=== PATIENT | male | born 1940 | race Caucasian/White ===

== ENCOUNTER 2016-04-08 05:08 | Emergency (ER) | payer MEDICARE, BC ==
--- NOTE | 2016-04-08 05:14 | ED Physician Documentation ---
PD HPI DYSPNEA - Stated complaint Stated Complaint: SOA - Chief complaint Chief Complaint: Resp - History obtained from History obtained from: Patient - History of Present Illness Timing - onset: Last night Timing - onset during: Light activity (he was getting up to go to the bathroom often, with feeling of frequency and dysuria, and was feeling short of breath with it. He uses oxygen regularly and is typically not very active. He was also then feeling some pain in right shoulder/upper right chest the past few hours intermittently.) Timing - duration: Hours Timing - details: Gradual onset, Still present Inciting event(s): No: Out of meds, URI Similar symptoms before: Diagnosis (had UTI about 1 1/2 years ago with similar dysuria. Has dyspnea often due to chronic COPD, on home oxygen.) Recently seen: Not recently seen Review of Systems Constitutional: denies: Fever, Chills Nose: denies: Rhinorrhea / runny nose, Congestion Throat: denies: Sore throat Cardiac: reports: Chest pain / pressure (right upper chest/shoulder area.). denies: Palpitations Respiratory: reports: Dyspnea, Cough (mild chronic, nonproductive). denies: Wheezing GI: denies: Nausea, Vomiting, Diarrhea : reports: Dysuria (just tonight), Frequency Skin: denies: Rash, Lesions Musculoskeletal: denies: Extremity swelling Neurologic: reports: Generalized weakness Psychiatric: denies: Anxiety Endocrine: denies: Weight loss, Easy bruising / bleeding Immunocompromised: denies: Immunocompromised PD PAST MEDICAL HISTORY - Past Medical History Cardiovascular: Hypertension Respiratory: COPD, Other Endocrine/Autoimmune: None GI: GERD : Benign prostate hypertrophy, Other HEENT: Chronic vision loss Psych: None Musculoskeletal: None Derm: None - Past Surgical History Past Surgical History: Yes General: Other HEENT: Cataracts - Present Medications Home Medications: Ambulatory Orders Medication Instructions Recorded Confirmed Fexofenadine [Aylin] 180 mg PO DAILY 07/10/14 04/08/16 Fluticasone/Salmeterol [Advair 1 inh PO BID 07/10/14 04/08/16 500-50 Diskus] Hydrochlorothiazide 12.5 mg PO DAILY 07/10/14 04/08/16 Omeprazole 20 mg PO DAILY 07/10/14 04/08/16 Latanoprost 2.5 ml OP DAILY 10/05/14 04/08/16 Aspirin [Aspir-Low] 81 mg PO DAILY 04/08/16 04/08/16 Cephalexin [Keflex] 500 mg PO TID #20 capsule 04/08/16 Naproxen 375 mg PO BID #20 tablet 04/08/16 Tamsulosin [Flomax] 1 tab PO DAILY 04/08/16 04/08/16 Timolol 0.5% Ophth Drops [Timoptic 1 drops OPTH BID 04/08/16 04/08/16 0.5% Ophth Drops] Tramadol HCl 50 mg PO Q6H PRN #20 tablet 04/08/16 - Allergies Allergies/Adverse Reactions: Allergies Allergy/AdvReac Type Severity Reaction Status Date / Time No Known Drug Allergies Allergy Verified 04/08/16 05:12 - Social History Does the pt smoke?: No Smoking Status: Former smoker Does the pt drink ETOH?: No Does the pt have substance abuse?: No - Immunizations Immunizations are current?: Yes - POLST Patient has POLST: No PD ED PE NORMAL - Vitals Vital signs reviewed: Yes - General General: Alert and oriented X 3, No acute distress, Well developed/nourished - HEENT HEENT: EOMI, Ears normal, Moist mucous membranes, Pharynx benign - Neck Neck: Supple, no meningeal sign, No JVD - Cardiac Cardiac: RRR, No murmur - Respiratory Respiratory: No: Clear bilaterally (some scattered wheezing noted throughout. ) - Abdomen Abdomen: Soft, Non tender - Back Back: No CVA TTP - Derm Derm: Normal color, Warm and dry - Extremities Extremities: No tenderness to palpate, Normal ROM s pain, No edema, No calf tenderness / cord - Neuro Neuro: Alert and oriented X 3, No motor deficit, Normal speech Results - Vitals Vitals: Vital Signs - 24 hr 04/08/16 04/08/16 04/08/16 05:13 05:55 06:31 Temperature 36.7 C Heart Rate 95 91 95 Respiratory 20 23 18 Rate Blood Pressure 169/88 H 155/96 H O2 Saturation 95 97 Oxygen O2 Source Nasal cannula Oxygen Flow Rate 5 - EKG (time done) 05:43 Rate: Rate (enter#) (97) Rhythm: NSR (with frequent PACs.) [place]: Normal Intervals: Normal CA QRS: Normal Ischemia: Normal ST segments. No: ST elevation c/w ischemia, ST depression ( ddddddd) Other comments: No: Other comments - Labs Labs: Laboratory Tests 04/08/16 04/08/16 04/08/16 06:09 06:09 06:09 WBC 12.6 H RBC 4.96 Hgb 15.0 Hct 44.2 MCV 89.1 MCH 30.3 MCHC 34.0 RDW 14.8 Plt Count 190 MPV 7.9 Neut # 10.5 H Lymph # 0.8 L [place] # 1.3 H Eos # 0.0 Baso # 0.1 Absolute Nucleated RBC 0.04 Nucleated RBCs 0.3 Sodium 139 Potassium 3.8 Chloride 102 Carbon Dioxide 26 Anion Gap 11.0 BUN 15 Creatinine 0.8 Estimated GFR (MDRD) 94 Glucose 148 H Calcium 8.8 Total Bilirubin 1.4 H AST 17 ALT 18 Alkaline Phosphatase 71 Troponin I < 0.04 B-Natriuretic Peptide Total Protein 6.9 Albumin 4.3 Globulin 2.6 Albumin/Globulin Ratio 1.7 Lipase 25 Urine Color Urine Clarity Urine pH Ur Specific [place] Urine Protein Urine Glucose (UA) Urine Ketones Urine Occult Blood Urine Nitrite Urine Bilirubin Urine Urobilinogen Ur Leukocyte Esterase Urine RBC Urine WBC Ur Squamous Epith Cells Urine Bacteria Ur Microscopic Review Urine Culture Comments 04/08/16 04/08/16 06:09 07:00 WBC RBC Hgb Hct MCV MCH MCHC RDW Plt Count MPV Neut # Lymph # [place] # Eos # Baso # Absolute Nucleated RBC Nucleated RBCs Sodium Potassium Chloride Carbon Dioxide Anion Gap BUN Creatinine Estimated GFR (MDRD) Glucose Calcium Total Bilirubin AST ALT Alkaline Phosphatase Troponin I B-Natriuretic Peptide 33 Total Protein Albumin Globulin Albumin/Globulin Ratio Lipase Urine Color DARK YELLOW Urine Clarity CLEAR Urine pH 7.0 Ur Specific [place] 1.015 Urine Protein TRACE Urine Glucose (UA) NEGATIVE Urine Ketones 15 H Urine Occult Blood NEGATIVE Urine Nitrite NEGATIVE Urine Bilirubin NEGATIVE Urine Urobilinogen >=8.0 H Ur Leukocyte Esterase SMALL H Urine RBC 6-10 H Urine WBC 6-10 H Ur Squamous Epith Cells NONE SEEN Urine Bacteria None Seen Ur Microscopic Review INDICATED Urine Culture Comments INDICATED - Rads (name of study) chest Radiology: Prelim report reviewed (some chronic scarring. No focal infiltrates. ) PD MEDICAL DECISION MAKING - ED course Complexity details: considered differential (feels better with neb treatment regarding breathing. Right shoulder with some tenderness mid calvicl area. Some pain with abduction/lifting the shoulder. No rash, deformity.), d/w patient, d/ w family () Departure - Departure Disposition: 01 Home, Self Care Clinical Impression: Shoulder pain, right Qualifiers: Chronicity: acute Qualified Code(s): M25.511 - Pain in right shoulder Urinary tract infection Qualifiers: Urinary tract infection type: acute cystitis Hematuria presence: with hematuria Qualified Code(s): N30.01 - Acute cystitis with hematuria Chest pain Qualifiers: Chest pain type: other chest pain Qualified Code(s): R07.89 - Other chest pain ; R07.8 - Other chest pain Condition: Stable Record reviewed to determine appropriate education?: Yes Instructions: ED UTI Cystitis Male, ED Chest Pain NonCardiac Follow-Up: Silas Sheets MD [Primary Care Provider] - Prescriptions: Cephalexin [Keflex] 500 mg PO TID #20 capsule Naproxen 375 mg PO BID #20 tablet Tramadol HCl 50 mg PO Q6H PRN #20 tablet PRN Reason: Pain Comments: Naproxen twice daily for 5-6 days for the chest/shoulder pain. Add Tylenol and/ or Tramadol for pain as needed. Cephalexin three times daily for UTI. Follow up with PMD if not improved over the next few days.
[2016-04-08] MEDS ORDERED: ALBUTEROL NEB 2.5 MG/3 ML INH ONE (05:51)
[2016-04-08] MEDS: ALBUTEROL NEB 2.5 MG/3 ML INH STA (05:55)
[2016-04-08 06:23] LABS: BASOPHILS # (AUTO) 0.1 10^3/uL (0.0-0.1); BASOPHILS % (AUTO) 0.4 %; EOSINOPHILS % (AUTO) 0.2 %; HCT - HEMATOCRIT 44.2 % (42.0-52.0); LYMPHOCYTES # (AUTO) 0.8 10^3/uL (1.5-3.5); MEAN CORPUSCULAR HEMOGLOBIN 30.3 pg (27.0-31.0); MEAN CORPUSCULAR VOLUME 89.1 fL (80.0-94.0); MEAN PLATELET VOLUME 7.9 fL (7.4-11.4); MONOCYTES # (AUTO) 1.3 10^3/uL (0.0-1.0); MONOCYTES % (AUTO) 10.3 %; NEUTROPHILS # (AUTO) 10.5 10^3/uL (1.5-6.6); NEUTROPHILS % (AUTO) 83.1 %; NUCLEATED RED BLOOD CELLS AUTO 0.3 /100WBC; RED BLOOD COUNT 4.96 10^6/uL (4.70-6.10); RED CELL DISTRIBUTION WIDTH 14.8 % (12.0-15.0); UNCORRECTED WHITE BLOOD COUNT 12.6 x10^3/uL; WHITE BLOOD COUNT 12.6 x10^3/uL (4.8-10.8)
[2016-04-08 06:33] LABS: ALBUMIN/GLOBULIN RATIO 1.7 (1.0-2.2); BILIRUBIN,TOTAL 1.4 mg/dL (0.2-1.0); CALCIUM 8.8 mg/dL (8.5-10.3); CREATININE 0.8 mg/dL (0.6-1.2); POTASSIUM 3.8 mmol/L (3.5-5.0); TOTAL PROTEIN 6.9 g/dL (6.7-8.2)
--- NOTE | 2016-04-08 06:49 | XRAY Preliminary Report ---
Exam: XR Chest 2 View PA/LAT IMPRESSION: 1. Mild cardiomegaly and chronic interstitial prominence. 2. Mild bibasilar atelectasis or infiltrate. 3. Hiatal hernia. [facility] SITE ID: [id number]
--- NOTE | 2016-04-08 06:51 | XRAY Report ---
EXAM: CHEST RADIOGRAPHY EXAM DATE: 04/08/2016 06:34 AM. CLINICAL HISTORY: Right chest pain; cough. Low oxygen saturation. Shortness of breath. COMPARISON: 07/10/2014. TECHNIQUE: 2 views. FINDINGS: Lungs/Pleura: Chronic interstitial prominence. Mild bibasilar atelectasis or infiltrate. No pleural e ffusion. No pneumothorax. Mediastinum: Mild cardiomegaly. Tortuous ectatic atherosclerotic aorta. Moderate to large hiatal john ia. Other: None. IMPRESSION: 1. Mild cardiomegaly and chronic interstitial prominence. 2. Mild bibasilar atelectasis or infiltrate. 3. Hiatal hernia. [facility] Referring Provider Line: [phone] SITE ID: [id number]
[2016-04-08 07:18] LABS: BILIRUBIN,URINE NEGATIVE (NEGATIVE); UA w/ MICROSCOPIC CHARGE YES
[2016-04-08 07:24] LABS: UR CULTURE IF IND INDICATED
[2016-04-08] MEDS ORDERED: CEPHALEXIN 250 MG CAPSULE PO ONE (07:38)
[2016-04-08] MEDS ORDERED: ACETAMINOPHEN 325 MG TABLET PO ONE (07:38)
[2016-04-08] MEDS ORDERED: traMADol 50 MG TABLET PO ONE (07:38)
[2016-04-08] MEDS: ACETAMINOPHEN 325 MG TABLET PO STA (07:41)
[2016-04-08] MEDS: traMADol 50 MG TABLET PO STA (07:41)
[2016-04-08] MEDS: CEPHALEXIN 250 MG CAPSULE PO STA (07:41)
[2016-04-08 07:54] VITALS: BP 157/83
== END 2016-04-08 07:54 | disposition home or self-care (01) ==
LOC: ED 05:08
DX: N30.01 Acute cystitis with hematuria (principal); M25.511 Pain in right shoulder; R07.89 Other chest pain; I10 Essential (primary) hypertension; K44.9 Diaphragmatic hernia without obstruction or gangrene; K21.9 Gastro-esophageal reflux disease without esophagitis; J44.9 Chronic obstructive pulmonary disease, unspecified; N40.0 Benign prostatic hyperplasia without lower urinary tract symptoms; Z79.82 Long term (current) use of aspirin; Z87.891 Personal history of nicotine dependence; Z99.81 Dependence on supplemental oxygen
CPT/HCPCS: 36415; 71020; 80053; 81001; 81003; 83690; 83880; 84484; 85025; 87086; 93005; 93010; 94640; 99283; 99284

== ENCOUNTER 2016-12-01 13:17 | Emergency (ER) | payer MEDICARE, BC ==
[2016-12-01 13:29] VITALS: BP 155/89
[2016-12-01] MEDS ORDERED: LIDOCAINE 2%-EPI 1:100000 20 ML MDV ONE (14:05)
[2016-12-01] MEDS ORDERED: TETANUS/DIPHTHERIA/PERTUSSIS 0.5 ML SYRINGE IM ONE ×2 (14:27→14:39)
--- NOTE | 2016-12-01 14:52 | ED Physician Documentation ---
PD HPI LOWER EXT INJURY - Stated complaint Stated Complaint: HEAD LAC - Chief complaint Chief Complaint: Laceration - History obtained from History obtained from: Patient - History of Present Illness PD HPI LOW EXT INJURY LOCATION: Other (occipital scalp) Type of injury: Fall Where injury occurred: Home Timing - onset: Today (Just prior to arrival.) Contributing factors: No: Anticoagulated Similar symptoms before: Has not had sx before - Additional information Additional information: The patient is a 75-year-old male who fell when he stumbled on the bottom step of the stairs just prior to arrival. He fell backwards impacting his head on the concrete. He denies loss of consciousness. He denies nausea or vomiting. He has been ambulatory since the incident occurred. He is uncertain of his last tetanus booster. Past medical history is significant for oxygen dependent COPD. Review of Systems Constitutional: denies: Fever Eyes: denies: Decreased vision Ears: denies: Tinnitus/ringing Nose: denies: Congestion Throat: denies: Sore throat Cardiac: denies: Chest pain / pressure Respiratory: denies: Dyspnea GI: denies: Abdominal Pain, Nausea, Vomiting : denies: Dysuria, Incontinent Skin: reports: Laceration (s) (scalp). denies: Rash Musculoskeletal: denies: Neck pain, Extremity pain Neurologic: reports: Head injury. denies: Focal weakness, Numbness, Altered mental status, Headache, LOC PD PAST MEDICAL HISTORY - Past Medical History Past Medical History: Yes Cardiovascular: Hypertension Respiratory: COPD, Other Neuro: Alzhiemer's Endocrine/Autoimmune: None GI: GERD : Benign prostate hypertrophy, Other HEENT: Chronic vision loss Psych: None Musculoskeletal: None Derm: None - Past Surgical History Past Surgical History: Yes General: Other HEENT: Cataracts - Present Medications Home Medications: Ambulatory Orders Medication Instructions Recorded Confirmed Aspirin [Adult Low Dose Aspirin EC] 1 tab PO DAILY 12/01/16 12/01/16 Cyanocobalamin (Vitamin B-12) 1 tab PO DAILY 12/01/16 12/01/16 [Vitamin B-12 (1000 mcg sublingual)] Fexofenadine HCl 1 tab PO DAILY 12/01/16 12/01/16 Finasteride 1 tab PO DAILY 12/01/16 12/01/16 Fluticasone/Salmeterol [Advair 1 tab PO DAILY 12/01/16 12/01/16 500-50 Diskus] Omeprazole [Omeprazole] 1 tab PO BID 12/01/16 12/01/16 Tamsulosin HCl [Flomax] 1 tab PO TID 12/01/16 12/01/16 Tiotropium [place] [Spiriva] 1 cap PO DAILY 12/01/16 12/01/16 hydroCHLOROthiazide [Hydrodiuril] 0.5 tab PO DAILY 12/01/16 12/01/16 - Allergies Allergies/Adverse Reactions: Allergies Allergy/AdvReac Type Severity Reaction Status Date / Time No Known Drug Allergies Allergy Verified 12/01/16 14:16 - Social History Does the pt smoke?: No Smoking Status: Former smoker Does the pt drink ETOH?: No Does the pt have substance abuse?: No - Immunizations Immunizations are current?: Yes - POLST Patient has POLST: No PD ED PE NORMAL - Vitals Vital signs reviewed: Yes (Hypertensive initially) - General General: Alert and oriented X 3, Well developed/nourished - HEENT HEENT: EOMI, Other (There is a 1.5 cm occipital scalp laceration. There is no bony step-off palpated.) - Neck Neck: Supple, no meningeal sign, No bony TTP - Cardiac Cardiac: RRR - Respiratory Respiratory: Clear bilaterally, Other (Supplemental oxygen by nasal cannula. Lungs clear to auscultation bilaterally.) - Abdomen Abdomen: Soft, Non tender - Back Back: No spinal TTP - Derm Derm: No rash - Extremities Extremities: No deformity, No tenderness to palpate - Neuro Neuro: Alert and oriented X 3, No motor deficit, No sensory deficit Results - Vitals Vitals: Oxygen O2 Source Nasal cannula Procedures - Laceration (location) Scalp Length in cm: 1.5 Wound type: Linear, Clean Neurovascular status: Sensory intact, Vascular intact Anesthesia: Lidocaine 1% with epi Wound Preparation: Hibiclens, Irrigated copiously NS, Wound explored, To the base. No: FB identified Skin layer closure: Bernard[place] Other: Patient tolerated well, No complications, Tetanus booster given Complexity: Simple PD MEDICAL DECISION MAKING - ED course Complexity details: considered differential, d/w patient, d/w family ED course: The patient's presentation is significant for small occipital scalp laceration caused by falling. No other injuries are found on thorough examination. Based on his clinical presentation I do not think imaging studies of his head is necessarily warranted. The patient is family expresses agreement that head CT is not clinically necessary. Treatment in the emergency department included thorough cleaning of the wound after local anesthetic was instilled. It was then repaired with bernarda. Antibiotic ointment was applied, and tetanus booster was administered. I discussed with him and his family the expected course of healing, wound care and timing for removal of bernarda, as well as potentially worrisome signs or symptoms that should prompt reevaluation is needed emergency department. Departure - Departure Disposition: 01 Home, Self Care Clinical Impression: Fall (on) (from) other stairs and steps, initial encounter Scalp laceration Qualifiers: Encounter type: initial encounter Qualified Code(s): S01.01XA - Laceration without foreign body of scalp, initial encounter Condition: Stable Instructions: ED Head Injury Closed, ED Laceration Scalp Stitch Or Stap Follow-Up: Silas Sheets MD [Primary Care Provider] - Comments: Keep the wound clean, and apply antibiotic ointment daily. You can use Tylenol if needed for discomfort. Follow-up for removal of bernarda in about 12 days. Return to the emergency department sooner if you develop any sign of infection, increasing headache, persistent vomiting, or otherwise worsening symptoms. Discharge Date/Time: 12/01/16 15:04
== END 2016-12-01 15:04 | disposition home or self-care (01) ==
LOC: ED 13:17
DX: S01.01XA Laceration without foreign body of scalp, initial encounter (principal); W10.9XXA Fall (on) (from) unspecified stairs and steps, initial encounter; G30.9 Alzheimer's disease, unspecified; F02.80 Dementia in other diseases classified elsewhere, unspecified severity, without behavioral disturbance, psychotic disturbance, mood disturbance, and anxiety; I10 Essential (primary) hypertension; Z87.891 Personal history of nicotine dependence; Z23 Encounter for immunization
CPT/HCPCS: 12001; 90471; 99282; 99283

== ENCOUNTER 2018-06-21 17:58 | Inpatient (IN) | payer MEDICARE, BC ==
--- NOTE | 2018-06-21 19:16 | ED Physician Documentation ---
PD HPI DYSPNEA - Stated complaint Stated Complaint: SOA/Weakness - Chief complaint Chief Complaint: Resp - History obtained from History obtained from: Patient, Family - History of Present Illness Timing - onset: How many days ago (2) Timing - onset during: Light activity Timing - duration: Days (The and daughter state the patient has had onset and progression of dyspnea since yesterday associated with general weakness. He has not really had any increased cough over baseline and his states may be a little less cough than usual. Today he also had altered mentation confusion and increased weakness to the point of falling on unable to walk. There were family members stated that symmetric weakness without any laterality. They had been out in the garden because it was a nice day and came in and the patient told them he had fallen and they also noticed she was generally weaker and seemed very confused. This worsened over the next couple of hours and so they brought him in.) Timing - details: Abrupt onset, Still present Inciting event(s): No: URI (No apparent increased cough over baseline but he does have lung disease with ongoing hypoxemia requiring oxygen at 3 L during the day and 5 L at night. He has had subjective dyspnea and also general weakness the last couple of days worsening steadily.) Improved by: O2 Associated symptoms: Cough (chronic). No: Fever, Wheezing, Bilateral edema Recently seen: Not recently seen Review of Systems Constitutional: denies: Fever Cardiac: denies: Chest pain / pressure Respiratory: reports: Dyspnea, Cough. denies: Wheezing GI: denies: Abdominal Pain, Vomiting, Diarrhea : denies: Dysuria, Incontinent Neurologic: reports: Generalized weakness, Head injury (he had fallen today without being able to state how he fell nor injuries. Was acting more confused and weak after the fall.). denies: Headache Endocrine: reports: Easy bruising / bleeding. denies: Weight loss PD PAST MEDICAL HISTORY - Past Medical History Cardiovascular: Hypertension Respiratory: COPD, Other Neuro: Alzhiemer's, Dementia Endocrine/Autoimmune: None GI: GERD : Benign prostate hypertrophy, Other HEENT: Chronic vision loss Psych: None Musculoskeletal: None Derm: None - Past Surgical History Past Surgical History: Yes General: Other HEENT: Cataracts - Present Medications Home Medications: Ambulatory Orders Medication Instructions Recorded Confirmed Aspirin [Adult Low Dose Aspirin EC] 1 tab PO DAILY 12/01/16 06/21/18 Fexofenadine HCl 1 tab PO DAILY 12/01/16 06/21/18 Finasteride 1 tab PO DAILY 12/01/16 06/21/18 Fluticasone/Salmeterol [Advair 1 tab PO DAILY 12/01/16 06/21/18 500-50 Diskus] Omeprazole 1 tab PO BID 12/01/16 06/21/18 Tamsulosin HCl [Flomax] 1 tab PO DAILY 12/01/16 06/21/18 Tiotropium [place] [Spiriva] 1 cap PO DAILY 12/01/16 06/21/18 hydroCHLOROthiazide [Hydrodiuril] 12.5 mg PO DAILY 12/01/16 06/21/18 - Allergies Allergies/Adverse Reactions: Allergies Allergy/AdvReac Type Severity Reaction Status Date / Time No Known Drug Allergies Allergy Verified 06/21/18 21:42 - Social History Does the pt smoke?: No Smoking Status: Former smoker Does the pt drink ETOH?: No Does the pt have substance abuse?: No - Family History Family history: reports: Non contributory - Immunizations Immunizations are current?: Yes - POLST Patient has POLST: No PD ED PE NORMAL - Vitals Vital signs reviewed: Yes - General General: No acute distress, Well developed/nourished. No: Alert and oriented X 3 (answers to his name and can reply to simple questions. very hard of hearing. Seems to be agitated and is picking at his clothing and fidgeting at the bed rails. ) - HEENT HEENT: Atraumatic, Pharynx benign. No: Moist mucous membranes - Neck Neck: Supple, no meningeal sign, No adenopathy - Cardiac Cardiac: RRR, No murmur - Respiratory Respiratory: Other (diminished sounds at bases. No wheezing noted. ) - Abdomen Abdomen: Normal bowel sounds, Soft, Non tender, Non distended - Male Male : Deferred - Rectal Rectal: Deferred - Back Back: No CVA TTP - Derm Derm: Normal color - Extremities Extremities: No deformity, No tenderness to palpate, Normal ROM s pain, No edema, No calf tenderness / cord - Neuro Neuro: No motor deficit (not focally, but has generalized weakness and needs 2 person assist to stand bedside to urinate. ) Eye Opening: To Voice Motor: Obeys Commands Verbal: Confused GCS Score: 13 Results - Vitals Vitals: Vital Signs - 24 hr 06/21/18 06/21/18 06/21/18 18:06 19:21 19:39 Temperature 36.1 C L Heart Rate 99 109 H Respiratory 26 H Rate Blood Pressure 139/97 H 130/86 H O2 Saturation 95 93 06/21/18 06/21/18 20:08 21:27 Temperature 36.8 C Heart Rate 90 89 Respiratory 18 19 Rate Blood Pressure 127/80 125/79 O2 Saturation 93 93 Oxygen O2 Source Nasal cannula - Labs Labs: Laboratory Tests 06/21/18 06/21/18 06/21/18 19:10 19:10 19:10 WBC 17.4 H RBC 5.01 Hgb 15.3 Hct 44.7 MCV 89.1 MCH 30.5 MCHC 34.2 RDW 15.1 H Plt Count 213 MPV 7.8 Neut # (Auto) 15.1 H Lymph # (Auto) 1.1 L [place] # (Auto) 1.1 H Eos # (Auto) 0.0 Baso # (Auto) 0.1 Absolute Nucleated RBC 0.00 Nucleated RBC % 0.0 Sodium 137 Potassium 3.6 Chloride 98 L Carbon Dioxide 27 Anion Gap 12.0 BUN 20 Creatinine 0.9 Estimated GFR (MDRD) 82 L Glucose 159 H Lactic Acid Calcium 9.7 Magnesium Total Bilirubin 1.2 H AST 22 ALT 13 Alkaline Phosphatase 72 B-Natriuretic Peptide 66 Total Protein 7.4 Albumin 4.0 Globulin 3.4 Albumin/Globulin Ratio 1.2 Lipase 25 Urine Color Urine Clarity Urine pH Ur Specific [place] Urine Protein Urine Glucose (UA) Urine Ketones Urine Occult Blood Urine Nitrite Urine Bilirubin Urine Urobilinogen Ur Leukocyte Esterase Ur Microscopic Review Urine Culture Comments 06/21/18 06/21/18 06/21/18 19:10 19:10 19:20 WBC RBC Hgb Hct MCV MCH MCHC RDW Plt Count MPV Neut # (Auto) Lymph # (Auto) [place] # (Auto) Eos # (Auto) Baso # (Auto) Absolute Nucleated RBC Nucleated RBC % Sodium Potassium Chloride Carbon Dioxide Anion Gap BUN Creatinine Estimated GFR (MDRD) Glucose Lactic Acid 2.1 Calcium Magnesium 1.7 Total Bilirubin AST ALT Alkaline Phosphatase B-Natriuretic Peptide Total Protein Albumin Globulin Albumin/Globulin Ratio Lipase Urine Color DARK YELLOW Urine Clarity CLEAR Urine pH 5.0 Ur Specific [place] >=1.030 H Urine Protein NEGATIVE Urine Glucose (UA) NEGATIVE Urine Ketones NEGATIVE Urine Occult Blood NEGATIVE Urine Nitrite NEGATIVE Urine Bilirubin NEGATIVE Urine Urobilinogen 0.2 (NORMAL) Ur Leukocyte Esterase NEGATIVE Ur Microscopic Review NOT INDICATED Urine Culture Comments NOT INDICATED - Rads (name of study) head CT Radiology: Prelim report reviewed (age related changes; no acute process), See rad report chest xray Radiology: Prelim report reviewed (There is a small nodule on the left that is similar to prior. There is a new atelectasis or infiltrate in the left midlung field.) PD MEDICAL DECISION MAKING - ED course Complexity details: reviewed results, considered differential (The patient has a fairly abrupt progression of generalized weakness confusion and apparent dyspnea over the last couple of days. He was weaker and off today the family members were unable to get him up to standing or to the bathroom. He reportedly fell earlier in the day while they were outside gardening. There is no obvious headache or head injury but he did seem more confused and weak after that. He has a chronic cough and COPD. He does have a leukocytosis here and chest x-ray reading with a small infiltrate on the left. Other labs urine and CT head are normal without acute changes. Therefore seems he is having cognitive and weakness manifestations of the pneumonia. His lactate is negative and his blood vital signs are good so he does not look septic.), d/w patient, d/w family Departure - Departure Disposition: 66 [facility] DC/Xfer Clinical Impression: General weakness, Altered mental status, Pneumonia, Leukocytosis
[2018-06-21 19:34] LABS: BASOPHILS # (AUTO) 0.1 10^3/uL (0.0-0.1); BASOPHILS % (AUTO) 0.4 %; EOSINOPHILS % (AUTO) 0.2 %; HGB - HEMOGLOBIN 15.3 g/dL (14.0-18.0); LYMPHOCYTES # (AUTO) 1.1 10^3/uL (1.5-3.5); LYMPHOCYTES % (AUTO) 6.2 %; MEAN CORPUSCULAR HEMOGLOBIN 30.5 pg (27.0-31.0); MEAN CORPUSCULAR HGB CONC 34.2 g/dL (32.0-36.0); MEAN CORPUSCULAR VOLUME 89.1 fL (80.0-94.0); MEAN PLATELET VOLUME 7.8 fL (7.4-11.4); MONOCYTES # (AUTO) 1.1 10^3/uL (0.0-1.0); MONOCYTES % (AUTO) 6.5 %; NEUTROPHILS # (AUTO) 15.1 10^3/uL (1.5-6.6); NEUTROPHILS % (AUTO) 86.7 %; PLT - PLATELET COUNT 213 10^3/uL (130-450); RED BLOOD COUNT 5.01 10^6/uL (4.70-6.10); RED CELL DISTRIBUTION WIDTH 15.1 % (12.0-15.0); WHITE BLOOD COUNT 17.4 x10^3/uL (4.8-10.8)
[2018-06-21] MEDS ORDERED: SODIUM CHLORIDE 0.9% 1,000 ML IV ONE (19:34)
[2018-06-21 19:42] LABS: BILIRUBIN,URINE NEGATIVE (NEGATIVE); GLUCOSE, URINE (UA) NEGATIVE (NEGATIVE); KETONES,URINE (UA) NEGATIVE (NEGATIVE); LEUKOCYTE ESTERASE, URINE NEGATIVE (NEGATIVE); NITRITE,URINE NEGATIVE (NEGATIVE); OCCULT BLOOD,URINE NEGATIVE (NEGATIVE); PROTEIN,URINE NEGATIVE (NEGATIVE); UROBILINOGEN,URINE 0.2 (NORMAL) E.U./dL (NORMAL)
[2018-06-21 19:45] LABS: CLARITY,URINE CLEAR (CLEAR)
[2018-06-21 19:57] LABS: ALBUMIN/GLOBULIN RATIO 1.2 (1.0-2.2); BILIRUBIN,TOTAL 1.2 mg/dL (0.2-1.0); CALCIUM 9.7 mg/dL (8.5-10.3); CREATININE 0.9 mg/dL (0.6-1.2); TOTAL PROTEIN 7.4 g/dL (6.7-8.2)
--- NOTE | 2018-06-21 20:09 | CT Report ---
Reason: weakness, altered mentation today Procedure Date: 06/21/2018 Accession Number: [id number] / [id number] Procedure: CT - HEAD WO CPT Code: FULL RESULT: EXAM: CT HEAD EXAM DATE: 06/21/2018 07:57 PM. CLINICAL HISTORY: Weakness, altered mentation today. COMPARISON: BRAIN W/WO 05/03/2015 8:11 AM. TECHNIQUE: Multiaxial CT images were obtained from the foramen magnum to the vertex. Reformats: Sagittal and coronal. IV contrast: None. In accordance with CT protocol optimization, one or more of the following dose reduction techniques were utilized for this exam: automated exposure control, adjustment of mA and/or KV based on patient size, or use of iterative reconstructive technique. FINDINGS: Parenchyma: No intraparenchymal hemorrhage. No evidence of mass, midline shift, or CT findings of acute infarction. Szymanski-white differentiation is distinct. Severe diffuse chronic microangiopathic white matter changes. Extraaxial Spaces: Normal for age. No subdural or epidural collections. Ventricles: The ventricles and cortical sulci are enlarged, consistent with age-related tissue loss. Sinuses and orbits: Imaged paranasal sinuses, orbits, and mastoids show no significant abnormality. Bones: Unremarkable. Other: None. IMPRESSION: Generalized age-related cortical atrophic changes without evidence of acute intracranial abnormality. [facility]
--- NOTE | 2018-06-21 20:18 | XRAY Report ---
Reason: dyspnea today Procedure Date: 06/21/2018 Accession Number: [id number] / [id number] Procedure: XR - Chest 1 View X-Ray CPT Code: 96737 FULL RESULT: EXAM: CHEST RADIOGRAPHY EXAM DATE: 06/21/2018 08:03 PM. CLINICAL HISTORY: Dyspnea today. COMPARISON: CHEST 2 VIEW PA/LAT 04/08/2016 6:14 AM. TECHNIQUE: 1 view. FINDINGS: Lungs/Pleura: The right lung appears clear. There is a vague nodular density and patchy density in the left midlung. Mediastinum: There is a retrocardiac rounded opacity suggestive of a hiatal hernia. There is moderate tortuosity of the aorta. Other: None. IMPRESSION: 1. Vague nodularity left midlung which is new since 2017. Possible patchy infection, atelectasis or asymmetric edema. 2. Probable hiatal hernia. RADIA
[2018-06-21] MEDS ORDERED: cefTRIAXone 1 GM VIAL IVP STA (20:22)
[2018-06-21] MEDS ORDERED: AZITHROMYCIN INJ 500 MG in SODIUM CHLORIDE 0.9% 250 ML IV STA (20:22)
[2018-06-21] MEDS ORDERED: SODIUM CHLORIDE FLUSH 0.9% 10 ML SYRINGE IVP PRN (21:43)
[2018-06-21] MEDS ORDERED: ACETAMINOPHEN 325 MG TABLET PO PRN (21:43)
--- NOTE | 2018-06-21 23:31 | HISTORY & PHYSICAL EXAMINATION ---
Chief Complaint - Chief Complaint Chief Complaint: encephalopathy, weakness History of Present Illness - Admitted From Admitted From:: [facility] ED - History Obtained From Records Reviewed: yes History obtained from: family Exam Limitations: encephalopathy, alzheimer's hard or hearing - History of Present Illness HPI Comment/Other: Patient is a 77 y/o male with Hx of Alzheimer's who was brought into the ED by family because he was suddenly very weak today, unable to stand on his own or walk. He was also more confused. Normally he recognizes family and can carry out a conversation just fine. He is also able to feed himself at baseline, though his coordination is declining. He is on 3-5L of Oxygen via nasal canula at home. In the ED he was found to have a WBC of 17 and chest xray suggested infiltrates. As a result he is being admitted for further treatment. At the time of my exam he was resting comfortably. He has a chronic cough, productive of white-aye sputum. This history was provided entirely by family. He is not very communicative. History - Past Medical History Cardiovascular: reports: Hypertension Respiratory: reports: COPD, Other Neuro: reports: Alzhiemer's, Dementia Endocrine/Autoimmune: reports: None GI: reports: GERD : reports: Benign prostate hypertrophy, Other HEENT: reports: Chronic vision loss Psych: reports: None Musculoskeletal: reports: None Derm: reports: None MRSA Hx?: No - Past Surgical History General: reports: Other HEENT: reports: Cataracts - POLST Patient has POLST: No Meds/Allgy - Home Medications Home Medications: Ambulatory Orders Medication Instructions Recorded Confirmed Aspirin [Adult Low Dose Aspirin EC] 1 tab PO DAILY 12/01/16 06/21/18 Fexofenadine HCl 1 tab PO DAILY 12/01/16 06/21/18 Finasteride 1 tab PO DAILY 12/01/16 06/21/18 Fluticasone/Salmeterol [Advair 1 tab PO DAILY 12/01/16 06/21/18 500-50 Diskus] Omeprazole 1 tab PO BID 12/01/16 06/21/18 Tamsulosin HCl [Flomax] 1 tab PO DAILY 12/01/16 06/21/18 Tiotropium [place] [Spiriva] 1 cap PO DAILY 12/01/16 06/21/18 hydroCHLOROthiazide [Hydrodiuril] 12.5 mg PO DAILY 12/01/16 06/21/18 - Allergies Allergies/Adverse Reactions: Allergies Allergy/AdvReac Type Severity Reaction Status Date / Time No Known Drug Allergies Allergy Verified 06/21/18 21:42 Review of Systems - Other Findings Other Findings: Limited due to alzheimer's and encephalopathy. Prior Level of Functionality: Lives with family Is able to feed self though coordination is declining Gets around walking on his own though he is unsteady on his feet. At baseline, recognizes family and can carry out conversation. Exam - Vital Signs Vital Signs: Vital Signs x48h Temp Pulse Resp BP Pulse Ox 06/21/18 21:27 89 19 125/79 93 06/21/18 20:08 36.8 C 90 18 127/80 93 06/21/18 19:39 130/86 H 06/21/18 19:21 109 H 93 06/21/18 18:06 36.1 C L 99 26 H 139/97 H 95 - Physical Exam General Appearance: positive: No acute distress, Alert Eyes Bilateral: positive: Normal inspection, PERRL, EOMI ENT: positive: ENT inspection nml Neck: positive: Nml inspection, No JVD, Trachea midline Respiratory: positive: Chest non-tender, No respiratory distress, Other (decreased breath sounds) Cardiovascular: positive: Regular rate & rhythm, No murmur Abdomen: positive: Non-tender, Nml bowel sounds, No distention Back: positive: Nml inspection Skin: positive: No rash, Other (thin skin, bruising) Extremities: positive: Non-tender, Nml appearance, No pedal edema Neurologic/Psychiatric: positive: Disoriented to place, Disoriented to time Sepsis Event Note (H) - Evaluation Current Stage of Sepsis: Sepsis Possible source of Sepsis: positive: Pulmonary - Sepsis Criteria Sepsis Criteria: Recorded Heart Rate greater than 90 bpm, WBC count greater than 12,000 or less than 4000 Conclusion/Plan - Problem List (1) Pneumonia Conclusion/Plan: Patient started on rocephin and azithromycin Will continue Qualifiers: Pneumonia type: due to unspecified organism Laterality: left Lung location: upper lobe of lung Qualified Code(s): J18.1 - Lobar pneumonia, unspecified organism (2) Altered mental status Conclusion/Plan: Likely 2/2 Pneumonia and Alzheimer's Expect patient to return to baseline with treatment Qualifiers: Altered mental status type: delirium Qualified Code(s): R41.0 - Disorientation, unspecified (3) COPD (chronic obstructive pulmonary disease) Conclusion/Plan: Not in exacerbation At baseline Duoneb prn ordered (4) Alzheimer disease Conclusion/Plan: On seroquel at night for behavioral disturbances (5) Glaucoma Conclusion/Plan: Will resume home medication when verified (6) GERD (gastroesophageal reflux disease) Conclusion/Plan: Protonix ordered - Lab Results Fish Bones: 06/22/18 05:53 06/21/18 19:10 Core Measures - Anticipated LOS I expect patient to be DC'd or transferred within 96 hours.: Yes - DVT/VTE - Prophylaxis VTE/DVT Device ordered at admit?: Yes - AMI - Statin at Admit Aspirin Prescribed on Admit: Yes
[2018-06-21] MEDS: QUEtiapine 25 MG TABLET PO SCH (23:54)
[2018-06-21] MEDS: SODIUM CHLORIDE 0.9% 1,000 ML IV SCH (23:54)
[2018-06-21] MEDS: SODIUM CHLORIDE FLUSH 0.9% 10 ML SYRINGE IVP SCH (23:55)
[2018-06-22 06:24] LABS: BASOPHILS # (AUTO) 0.1 10^3/uL (0.0-0.1); BASOPHILS % (AUTO) 0.7 %; EOSINOPHILS # (AUTO) 0.1 10^3/uL (0.0-0.7); EOSINOPHILS % (AUTO) 0.6 %; HGB - HEMOGLOBIN 13.2 g/dL (14.0-18.0); LYMPHOCYTES # (AUTO) 1.4 10^3/uL (1.5-3.5); MEAN CORPUSCULAR HEMOGLOBIN 30.2 pg (27.0-31.0); MEAN CORPUSCULAR HGB CONC 33.6 g/dL (32.0-36.0); MEAN CORPUSCULAR VOLUME 89.9 fL (80.0-94.0); MEAN PLATELET VOLUME 7.4 fL (7.4-11.4); MONOCYTES # (AUTO) 0.9 10^3/uL (0.0-1.0); MONOCYTES % (AUTO) 6.8 %; NEUTROPHILS # (AUTO) 11.4 10^3/uL (1.5-6.6); NEUTROPHILS % (AUTO) 81.9 %; PLT - PLATELET COUNT 182 10^3/uL (130-450); RED BLOOD COUNT 4.37 10^6/uL (4.70-6.10); RED CELL DISTRIBUTION WIDTH 14.7 % (12.0-15.0); WHITE BLOOD COUNT 13.9 x10^3/uL (4.8-10.8)
[2018-06-22 06:32] LABS: CALCIUM 8.5 mg/dL (8.5-10.3); CREATININE 0.7 mg/dL (0.6-1.2)
[2018-06-22] MEDS ORDERED: LIDOCAINE 2% URO-JET 5 ML SYRINGE UR SCH (06:58)
[2018-06-22] MEDS: PANTOPRAZOLE 40 MG TABLET PO SCH (07:13)
[2018-06-22] MEDS ORDERED: MAGNESIUM SULFATE 2 GRAM 2 GM/50 ML BAG IV ONE (07:30)
[2018-06-22] MEDS ORDERED: LORazepam 2 MG/ML VIAL IVP SCH (08:00)
[2018-06-22] MEDS ORDERED: LORazepam 2 MG/ML VIAL IVP ONE (08:00)
[2018-06-22] MEDS: POLYETHYLENE GLYCOL 3350 17 GM PACKET PO SCH (09:16)
[2018-06-22] MEDS: ASPIRIN EC 81 MG TABLET PO SCH (09:16)
[2018-06-22] MEDS: TAMSULOSIN 0.4 MG CAPSULE PO SCH (09:16)
[2018-06-22] MEDS: LORATADINE 10 MG TABLET PO SCH (09:16)
[2018-06-22] MEDS: SODIUM CHLORIDE 0.9% 1,000 ML IV SCH ×2 (09:31→19:55)
[2018-06-22] MEDS: SODIUM CHLORIDE FLUSH 0.9% 10 ML SYRINGE IVP SCH ×2 (13:12→19:12)
--- NOTE | 2018-06-22 17:54 | PROVIDER PROGRESS NOTE ---
Subjective - Prog Note Date Prog Note Date: 06/22/18 Prog Note Time: 17:53 - Subjective Pt reports feeling: Improved Subjective: Anjum continues to display confusion and appears lethargic today. He denies complaints of pain when asked. Current Medications - Current Medications Current Medications: Active Medications Acetaminophen (Tylenol) 650 mg PO Q4HR PRN PRN Reason: Pain 1 to 4 Last Admin: 06/21/18 23:54 Dose: 650 mg Albuterol/Ipratropium (Duoneb) 3 ml INH Q4HR PRN PRN Reason: Wheezing Aspirin (Ecotrin) 81 mg PO DAILY [facility] Last Admin: 06/22/18 09:16 Dose: 81 mg Azithromycin (Zithromax) 250 mg PO DAILY@2100 [facility] Stop: 06/25/18 21:01 Budesonide (Pulmicort) 0.5 mg INH RTBID [facility] Sodium Chloride (Normal Saline 0.9%) 1,000 mls @ 100 mls/hr IV .Q10H [facility] Last Admin: 06/22/18 09:31 Dose: 100 mls/hr Ceftriaxone Sodium 1 gm/ (Sodium Chloride) 100 mls @ 200 mls/hr IV DAILY [facility] Latanoprost (Xalatan Ophth Drops) 1 drops EACHEYE QPM [facility] Lidocaine HCl (Xylocaine Uro-Jet 2%) 2.5 ml UR Q6H PRN PRN Reason: PAIN Loratadine (Claritin) 10 mg PO DAILY [facility] Last Admin: 06/22/18 09:16 Dose: 10 mg Pantoprazole Sodium (Protonix) 40 mg PO QDAC [facility] Last Admin: 06/22/18 07:13 Dose: Not Given Polyethylene Glycol (Miralax) 17 gm PO DAILY [facility] Last Admin: 06/22/18 09:16 Dose: 17 gm Quetiapine Fumarate (Seroquel) 25 mg PO QPM [facility] Last Admin: 06/21/18 23:54 Dose: 25 mg Quetiapine Fumarate (Seroquel) 25 mg PO QPM PRN PRN Reason: HALLUCINATIONS Sodium Chloride (Normal Saline Flush 0.9%) 10 ml IVP PRN PRN PRN Reason: NEEDED PER PROVIDER ORDERS Sodium Chloride (Normal Saline Flush 0.9%) 10 ml IVP 0100,0900,1700 [facility] Last Admin: 06/22/18 13:12 Dose: Not Given Tamsulosin HCl (Flomax) 0.4 mg PO DAILY [facility] Last Admin: 06/22/18 09:16 Dose: 0.4 mg Timolol Maleate (Timoptic 0.5% Ophth Drops) 1 drops EACHEYE BID [facility] Aspirin [Adult Low Dose Aspirin EC] 81 mg PO DAILY 12/01/16 Fexofenadine HCl 180 mg PO DAILY 12/01/16 Finasteride 5 mg PO DAILY 12/01/16 Fluticasone/Salmeterol [Advair 500-50 Diskus] 1 puffs INH BID 12/01/16 Omeprazole 20 mg PO QDAC 12/01/16 Tamsulosin HCl [Flomax] 0.4 mg PO DAILY 12/01/16 Tiotropium [place] [Spiriva] 2 puffs INH DAILY 12/01/16 hydroCHLOROthiazide [Hydrodiuril] 12.5 mg PO DAILY 12/01/16 Cholecalciferol [Vitamin D3] 5,000 units PO DAILY 06/22/18 Latanoprost 0.005% Ophth Drops [Xalatan Ophth Drops] 1 drops EACHEYE QPM 06/22/18 Multivitamin [Theragran] 1 tab PO DAILY 06/22/18 QUEtiapine [SEROquel] 25 mg PO QPM PRN 06/22/18 Timolol 0.5% Ophth Drops [Timoptic 0.5% Ophth Drops] 1 drops EACHEYE BID 06/22/18 Tiotropium [place] [Spiriva] 1 puffs INH QPM 06/22/18 Objective - Vital Signs/Intake & Output Reviewed Vital Signs: Yes Vital Signs: Vital Signs x48h Temp Pulse Resp BP Pulse Ox 06/22/18 15:00 36.7 C 71 20 146/80 H 98 06/22/18 13:21 36.6 C 64 18 123/73 100 Intake & Output: Intake & Output 06/19/18 06/20/18 06/21/18 06/22/18 23:59 23:59 23:59 23:59 Intake Total 1250 1131.667 Output Total 700 Balance 1250 431.667 - Objective General Appearance: positive: Moderate distress, Anxious, Lethargic Eyes Bilateral: positive: PERRL Eyes: OU Conjunctivae pale ENT: positive: Pharynx nml, Dry mucous membranes Neck: positive: Thyroid nml, No JVD, Trachea midline Respiratory: positive: No respiratory distress, Rhonchi Cardiovascular: positive: Tachycardia, Systolic murmur, Decreased pulse(s) Peripheral Pulses: 1+ Radial (R), 1+ Radial (L) Abdomen: positive: Non-tender, No distention Back: positive: Nml inspection Skin: positive: No rash, Warm, Dry Extremities: positive: Non-tender, Full ROM, No pedal edema Neurologic/Psychiatric: positive: Disoriented to person, Disoriented to place, Disoriented to time, Weakness, Sensory loss, Slurred/abnml speech, Depressed mood/affect Reflexes: Bicep (R): 3+, Bicep (L): 3+ - Lab Results Fish Bones: 06/22/18 05:53 06/22/18 05:53 Other Labs: Lab Results x24hrs 06/22/18 06/22/18 06/21/18 Range/Units 05:53 05:53 19:20 WBC 13.9 H (4.8-10.8) x10^3/uL RBC 4.37 L (4.70-6.10) 10^6/uL Hgb 13.2 L (14.0-18.0) g/dL Hct 39.3 L (42.0-52.0) % MCV 89.9 (80.0-94.0) fL MCH 30.2 (27.0-31.0) pg MCHC 33.6 (32.0-36.0) g/dL RDW 14.7 (12.0-15.0) % Plt Count 182 (130-450) 10^3/uL MPV 7.4 (7.4-11.4) fL Neut # (Auto) 11.4 H (1.5-6.6) 10^3/uL Lymph # (Auto) 1.4 L (1.5-3.5) 10^3/uL [place] # (Auto) 0.9 (0.0-1.0) 10^3/uL Eos # (Auto) 0.1 (0.0-0.7) 10^3/uL Baso # (Auto) 0.1 (0.0-0.1) 10^3/uL Absolute Nucleated RBC 0.00 x10^3/uL Nucleated RBC % 0.0 /100WBC Sodium 141 (135-145) mmol/L Potassium 3.2 L (3.5-5.0) mmol/L Chloride 106 (101-111) mmol/L Carbon Dioxide 26 (21-32) mmol/L Anion Gap 9.0 (6-13) BUN 16 (6-20) mg/dL Creatinine 0.7 (0.6-1.2) mg/dL Estimated GFR (MDRD) 109 (>89) Glucose 101 H (70-100) mg/dL Lactic Acid (0.5-2.2) mmol/L Calcium 8.5 (8.5-10.3) mg/dL Magnesium (1.7-2.8) mg/dL Total Bilirubin (0.2-1.0) mg/dL AST (10-42) IU/L ALT (10-60) IU/L Alkaline Phosphatase (42-121) IU/L B-Natriuretic Peptide (5-100) pg/mL Total Protein (6.7-8.2) g/dL Albumin (3.2-5.5) g/dL Globulin (2.1-4.2) g/dL Albumin/Globulin Ratio (1.0-2.2) Lipase (22-51) U/L Urine Color DARK YELLOW Urine Clarity CLEAR (CLEAR) Urine pH 5.0 (5.0-7.5) PH Ur Specific [place] >=1.030 H (1.002-1.030) Urine Protein NEGATIVE (NEGATIVE) mg/dL Urine Glucose (UA) NEGATIVE (NEGATIVE) mg/dL Urine Ketones NEGATIVE (NEGATIVE) mg/dL Urine Occult Blood NEGATIVE (NEGATIVE) Urine Nitrite NEGATIVE (NEGATIVE) Urine Bilirubin NEGATIVE (NEGATIVE) Urine Urobilinogen 0.2 (NORMAL) (NORMAL) E.U./dL Ur Leukocyte Esterase NEGATIVE (NEGATIVE) Ur Microscopic Review NOT INDICATED Urine Culture Comments NOT INDICATED 06/21/18 06/21/18 06/21/18 Range/Units 19:10 19:10 19:10 WBC (4.8-10.8) x10^3/uL RBC (4.70-6.10) 10^6/uL Hgb (14.0-18.0) g/dL Hct (42.0-52.0) % MCV (80.0-94.0) fL MCH (27.0-31.0) pg MCHC (32.0-36.0) g/dL RDW (12.0-15.0) % Plt Count (130-450) 10^3/uL MPV (7.4-11.4) fL Neut # (Auto) (1.5-6.6) 10^3/uL Lymph # (Auto) (1.5-3.5) 10^3/uL [place] # (Auto) (0.0-1.0) 10^3/uL Eos # (Auto) (0.0-0.7) 10^3/uL Baso # (Auto) (0.0-0.1) 10^3/uL Absolute Nucleated RBC x10^3/uL Nucleated RBC % /100WBC Sodium (135-145) mmol/L Potassium (3.5-5.0) mmol/L Chloride (101-111) mmol/L Carbon Dioxide (21-32) mmol/L Anion Gap (6-13) BUN (6-20) mg/dL Creatinine (0.6-1.2) mg/dL Estimated GFR (MDRD) (>89) Glucose (70-100) mg/dL Lactic Acid 2.1 (0.5-2.2) mmol/L Calcium (8.5-10.3) mg/dL Magnesium 1.7 (1.7-2.8) mg/dL Total Bilirubin (0.2-1.0) mg/dL AST (10-42) IU/L ALT (10-60) IU/L Alkaline Phosphatase (42-121) IU/L B-Natriuretic Peptide 66 (5-100) pg/mL Total Protein (6.7-8.2) g/dL Albumin (3.2-5.5) g/dL Globulin (2.1-4.2) g/dL Albumin/Globulin Ratio (1.0-2.2) Lipase (22-51) U/L Urine Color Urine Clarity (CLEAR) Urine pH (5.0-7.5) PH Ur Specific [place] (1.002-1.030) Urine Protein (NEGATIVE) mg/dL Urine Glucose (UA) (NEGATIVE) mg/dL Urine Ketones (NEGATIVE) mg/dL Urine Occult Blood (NEGATIVE) Urine Nitrite (NEGATIVE) Urine Bilirubin (NEGATIVE) Urine Urobilinogen (NORMAL) E.U./dL Ur Leukocyte Esterase (NEGATIVE) Ur Microscopic Review Urine Culture Comments 06/21/18 06/21/18 Range/Units 19:10 19:10 WBC 17.4 H (4.8-10.8) x10^3/uL RBC 5.01 (4.70-6.10) 10^6/uL Hgb 15.3 (14.0-18.0) g/dL Hct 44.7 (42.0-52.0) % MCV 89.1 (80.0-94.0) fL MCH 30.5 (27.0-31.0) pg MCHC 34.2 (32.0-36.0) g/dL RDW 15.1 H (12.0-15.0) % Plt Count 213 (130-450) 10^3/uL MPV 7.8 (7.4-11.4) fL Neut # (Auto) 15.1 H (1.5-6.6) 10^3/uL Lymph # (Auto) 1.1 L (1.5-3.5) 10^3/uL [place] # (Auto) 1.1 H (0.0-1.0) 10^3/uL Eos # (Auto) 0.0 (0.0-0.7) 10^3/uL Baso # (Auto) 0.1 (0.0-0.1) 10^3/uL Absolute Nucleated RBC 0.00 x10^3/uL Nucleated RBC % 0.0 /100WBC Sodium 137 (135-145) mmol/L Potassium 3.6 (3.5-5.0) mmol/L Chloride 98 L (101-111) mmol/L Carbon Dioxide 27 (21-32) mmol/L Anion Gap 12.0 (6-13) BUN 20 (6-20) mg/dL Creatinine 0.9 (0.6-1.2) mg/dL Estimated GFR (MDRD) 82 L (>89) Glucose 159 H (70-100) mg/dL Lactic Acid (0.5-2.2) mmol/L Calcium 9.7 (8.5-10.3) mg/dL Magnesium (1.7-2.8) mg/dL Total Bilirubin 1.2 H (0.2-1.0) mg/dL AST 22 (10-42) IU/L ALT 13 (10-60) IU/L Alkaline Phosphatase 72 (42-121) IU/L B-Natriuretic Peptide (5-100) pg/mL Total Protein 7.4 (6.7-8.2) g/dL Albumin 4.0 (3.2-5.5) g/dL Globulin 3.4 (2.1-4.2) g/dL Albumin/Globulin Ratio 1.2 (1.0-2.2) Lipase 25 (22-51) U/L Urine Color Urine Clarity (CLEAR) Urine pH (5.0-7.5) PH Ur Specific [place] (1.002-1.030) Urine Protein (NEGATIVE) mg/dL Urine Glucose (UA) (NEGATIVE) mg/dL Urine Ketones (NEGATIVE) mg/dL Urine Occult Blood (NEGATIVE) Urine Nitrite (NEGATIVE) Urine Bilirubin (NEGATIVE) Urine Urobilinogen (NORMAL) E.U./dL Ur Leukocyte Esterase (NEGATIVE) Ur Microscopic Review Urine Culture Comments ABX Reporting Has patient been on IV antibiotics over the past 48 hours?: Yes Sepsis Event Note (H) - Evaluation Current Stage of Sepsis: Ruled out Possible source of Sepsis: positive: Pulmonary - Sepsis Criteria Sepsis Criteria: Recorded Heart Rate greater than 90 bpm, WBC count greater than 12,000 or less than 4000 Assessment/Plan - Problem List (1) Pneumonia involving left lung Impression: -Chest x-ray showed a left mid-lung patchy opacity - WBC count elevated at 17, now 13 - Baseline home oxygen 3-5L nasal cannula - Reports of coughing up more sputum - Afebrile - Increased confusion, could not recognize family Plan: Continue IV antibiotics, IVFs, fall precautions (2) Encephalopathy acute Impression: - Lethargic, confused and combative with nursing staff at times today - Hx of Alzheimer's dementia - Continues to live with his at home Plan: Continue to monitor, treat underlying infection (3) Alzheimer disease Impression: -chart review shows extensive history of this - Reports that he still lives w/ - Combative with staff today Plan: Continue fall precautions, treat illness (4) COPD (chronic obstructive pulmonary disease) Impression: - Emphysema predominant - Had a pulmonary clinic visit ~2016 per chart review - Was on Spiriva, Advair, and albuterol - Was prescribed home oxygen, 3-5L per nasal cannula Plan: Consider attending pulmonary rehab after this PNA is treated (5) BPH loc w urin obs/LUTS Impression: -chart review; Urology office visit dated March 2018- for gross hematuria - Multiple UTIs - Continue Flomax/finsteride Plan: Indwelling de leon today for known urinary retention and to promote comfort
[2018-06-22] MEDS ORDERED: LIDOCAINE 2% URO-JET 5 ML SYRINGE UR PRN (18:13)
[2018-06-22] MEDS ORDERED: QUEtiapine 25 MG TABLET PO PRN (18:14)
[2018-06-22] MEDS: IPRATROPIUM/ALBUTEROL 3 ML NEB INH PRN (19:23)
[2018-06-22] MEDS: BUDESONIDE 0.5 MG/2 ML NEB INH SCH (19:23)
[2018-06-22] MEDS: QUEtiapine 25 MG TABLET PO SCH (21:54)
[2018-06-22] MEDS: cefTRIAXone 1 GM in SODIUM CHLORIDE 0.9% MINIBAG 100 ML IV SCH (21:54)
[2018-06-22] MEDS: AZITHROMYCIN 250 MG TABLET PO SCH (21:54)
[2018-06-22] MEDS: TIMOLOL 0.5% OPHTH DROPS EACHEYE SCH (22:53)
[2018-06-22] MEDS: LATANOPROST 0.005% OPHTH DROPS EACHEYE SCH (22:53)
[2018-06-23] MEDS: SODIUM CHLORIDE FLUSH 0.9% 10 ML SYRINGE IVP SCH ×3 (00:18→21:44)
[2018-06-23 06:48] LABS: BASOPHILS # (AUTO) 0.1 10^3/uL (0.0-0.1); BASOPHILS % (AUTO) 0.5 %; EOSINOPHILS # (AUTO) 0.2 10^3/uL (0.0-0.7); EOSINOPHILS % (AUTO) 2.2 %; HGB - HEMOGLOBIN 13.4 g/dL (14.0-18.0); LYMPHOCYTES # (AUTO) 1.3 10^3/uL (1.5-3.5); MEAN CORPUSCULAR HEMOGLOBIN 30.6 pg (27.0-31.0); MEAN CORPUSCULAR HGB CONC 34.1 g/dL (32.0-36.0); MEAN CORPUSCULAR VOLUME 89.8 fL (80.0-94.0); MEAN PLATELET VOLUME 7.6 fL (7.4-11.4); MONOCYTES # (AUTO) 0.8 10^3/uL (0.0-1.0); NEUTROPHILS # (AUTO) 7.8 10^3/uL (1.5-6.6); NEUTROPHILS % (AUTO) 76.3 %; PLT - PLATELET COUNT 184 10^3/uL (130-450); RED BLOOD COUNT 4.36 10^6/uL (4.70-6.10); RED CELL DISTRIBUTION WIDTH 14.9 % (12.0-15.0); WHITE BLOOD COUNT 10.3 x10^3/uL (4.8-10.8)
[2018-06-23] MEDS: PANTOPRAZOLE 40 MG TABLET PO SCH (06:52)
[2018-06-23 06:59] LABS: CALCIUM 8.1 mg/dL (8.5-10.3); CREATININE 0.7 mg/dL (0.6-1.2)
[2018-06-23] MEDS: IPRATROPIUM/ALBUTEROL 3 ML NEB INH PRN (07:26)
[2018-06-23] MEDS: BUDESONIDE 0.5 MG/2 ML NEB INH SCH ×2 (07:26→18:09)
[2018-06-23] MEDS: cefTRIAXone 1 GM in SODIUM CHLORIDE 0.9% MINIBAG 100 ML IV SCH (09:07)
[2018-06-23] MEDS: SODIUM CHLORIDE 0.9% 1,000 ML IV SCH (09:08)
[2018-06-23] MEDS: TAMSULOSIN 0.4 MG CAPSULE PO SCH (09:10)
[2018-06-23] MEDS: LORATADINE 10 MG TABLET PO SCH (09:10)
[2018-06-23] MEDS: POLYETHYLENE GLYCOL 3350 17 GM PACKET PO SCH (09:10)
[2018-06-23] MEDS: ASPIRIN EC 81 MG TABLET PO SCH (09:10)
[2018-06-23] MEDS: TIMOLOL 0.5% OPHTH DROPS EACHEYE SCH ×2 (09:10→21:45)
[2018-06-23] MEDS: SENNA 8.6 MG TABLET PO SCH (09:10)
[2018-06-23] MEDS: DOCUSATE SODIUM 250 MG CAPSULE PO SCH (09:10)
--- NOTE | 2018-06-23 11:43 | PROVIDER PROGRESS NOTE ---
Subjective - Prog Note Date Prog Note Date: 06/23/18 Prog Note Time: 11:42 - Subjective Pt reports feeling: Improved Subjective: Anjum has no complaints, and is sitting in his chair. He denies any new symptoms such as chest pain, nausea, vomiting, diarrhea, or a new rash. Current Medications - Current Medications Current Medications: Active Medications Acetaminophen (Tylenol) 650 mg PO Q4HR PRN PRN Reason: Pain 1 to 4 Last Admin: 06/21/18 23:54 Dose: 650 mg Albuterol/Ipratropium (Duoneb) 3 ml INH Q4HR PRN PRN Reason: Wheezing Last Admin: 06/23/18 07:26 Dose: 3 ml Aspirin (Ecotrin) 81 mg PO DAILY [facility] Last Admin: 06/23/18 09:10 Dose: 81 mg Azithromycin (Zithromax) 250 mg PO DAILY@2100 [facility] Stop: 06/25/18 21:01 Last Admin: 06/22/18 21:54 Dose: 250 mg Budesonide (Pulmicort) 0.5 mg INH RTBID [facility] Last Admin: 06/23/18 18:09 Dose: 0.5 mg Docusate Sodium (Colace 250mg Capsule) 250 - 500 mg PO DAILY [facility] Last Admin: 06/23/18 09:10 Dose: 250 mg Ceftriaxone Sodium 1 gm/ (Sodium Chloride) 100 mls @ 200 mls/hr IV DAILY [facility] Last Infusion: 06/23/18 09:37 Dose: Infused Latanoprost (Xalatan Ophth Drops) 1 drops EACHEYE QPM [facility] Last Admin: 06/22/18 22:53 Dose: Not Given Lidocaine HCl (Xylocaine Uro-Jet 2%) 2.5 ml UR Q6H PRN PRN Reason: PAIN Loratadine (Claritin) 10 mg PO DAILY [facility] Last Admin: 06/23/18 09:10 Dose: 10 mg Pantoprazole Sodium (Protonix) 40 mg PO QDAC [facility] Last Admin: 06/23/18 06:52 Dose: 40 mg Polyethylene Glycol (Miralax) 17 gm PO DAILY [facility] Last Admin: 06/23/18 09:10 Dose: 17 gm Quetiapine Fumarate (Seroquel) 25 mg PO QPM [facility] Last Admin: 06/22/18 21:54 Dose: 25 mg Quetiapine Fumarate (Seroquel) 25 mg PO QPM PRN PRN Reason: HALLUCINATIONS Quetiapine Fumarate (Seroquel) 25 mg PO Q4H PRN PRN Reason: Anxiety Last Admin: 06/23/18 15:25 Dose: 25 mg Senna (Senokot) 8.6 - 17.2 mg PO DAILY [facility] Last Admin: 06/23/18 09:10 Dose: 8.6 mg Sodium Chloride (Normal Saline Flush 0.9%) 10 ml IVP PRN PRN PRN Reason: NEEDED PER PROVIDER ORDERS Sodium Chloride (Normal Saline Flush 0.9%) 10 ml IVP 0100,0900,1700 [facility] Last Admin: 06/23/18 09:10 Dose: Not Given Tamsulosin HCl (Flomax) 0.4 mg PO DAILY [facility] Last Admin: 06/23/18 09:10 Dose: 0.4 mg Timolol Maleate (Timoptic 0.5% Ophth Drops) 1 drops EACHEYE BID [facility] Last Admin: 06/23/18 09:10 Dose: 1 drops Aspirin [Adult Low Dose Aspirin EC] 81 mg PO DAILY 12/01/16 Fexofenadine HCl 180 mg PO DAILY 12/01/16 Finasteride 5 mg PO DAILY 12/01/16 Fluticasone/Salmeterol [Advair 500-50 Diskus] 1 puffs INH BID 12/01/16 Omeprazole 20 mg PO QDAC 12/01/16 Tamsulosin HCl [Flomax] 0.4 mg PO DAILY 12/01/16 Tiotropium [place] [Spiriva] 2 puffs INH DAILY 12/01/16 hydroCHLOROthiazide [Hydrodiuril] 12.5 mg PO DAILY 12/01/16 Cholecalciferol [Vitamin D3] 5,000 units PO DAILY 06/22/18 Latanoprost 0.005% Ophth Drops [Xalatan Ophth Drops] 1 drops EACHEYE QPM 06/22/18 Multivitamin [Theragran] 1 tab PO DAILY 06/22/18 QUEtiapine [SEROquel] 25 mg PO QPM PRN 06/22/18 Timolol 0.5% Ophth Drops [Timoptic 0.5% Ophth Drops] 1 drops EACHEYE BID 06/22/18 Tiotropium [place] [Spiriva] 1 puffs INH QPM 06/22/18 Objective - Vital Signs/Intake & Output Reviewed Vital Signs: Yes Vital Signs: Vital Signs x48h Temp Pulse Pulse Resp BP Pulse Ox 06/23/18 08:07 36.6 C 65 16 97 06/23/18 07:59 36.6 C 62 16 148/79 H 97 06/23/18 07:28 65 16 Intake & Output: Intake & Output 06/20/18 06/21/18 06/22/18 06/23/18 23:59 23:59 23:59 23:59 Intake Total 1250 2351.667 1500 Output Total 775 150 Balance 1250 7926.271 1674 - Objective General Appearance: positive: No acute distress, Alert Eyes Bilateral: positive: PERRL Eyes: OU Conjunctivae pale ENT: positive: ENT inspection nml, Pharynx nml, Dry mucous membranes Neck: positive: Thyroid nml, No JVD, Trachea midline Respiratory: positive: Chest non-tender, No respiratory distress, Rhonchi Cardiovascular: positive: No gallop, Irregularly irregular, Systolic murmur, Decreased pulse(s) Peripheral Pulses: 1+ Radial (R), 1+ Radial (L) Abdomen: positive: Non-tender, Nml bowel sounds Back: positive: Nml inspection Skin: positive: No rash, Warm, Dry Extremities: positive: Non-tender, Full ROM Neurologic/Psychiatric: positive: Motor nml, Sensation nml, Disoriented to time, Weakness, Slurred/abnml speech, Depressed mood/affect Reflexes: Bicep (R): 3+, Bicep (L): 3+ - Lab Results Fish Bones: 06/23/18 06:16 06/23/18 06:16 Other Labs: Lab Results x24hrs 06/23/18 06/23/18 Range/Units 06:16 06:16 WBC 10.3 (4.8-10.8) x10^3/uL RBC 4.36 L (4.70-6.10) 10^6/uL Hgb 13.4 L (14.0-18.0) g/dL Hct 39.2 L (42.0-52.0) % MCV 89.8 (80.0-94.0) fL MCH 30.6 (27.0-31.0) pg MCHC 34.1 (32.0-36.0) g/dL RDW 14.9 (12.0-15.0) % Plt Count 184 (130-450) 10^3/uL MPV 7.6 (7.4-11.4) fL Neut # (Auto) 7.8 H (1.5-6.6) 10^3/uL Lymph # (Auto) 1.3 L (1.5-3.5) 10^3/uL [place] # (Auto) 0.8 (0.0-1.0) 10^3/uL Eos # (Auto) 0.2 (0.0-0.7) 10^3/uL Baso # (Auto) 0.1 (0.0-0.1) 10^3/uL Absolute Nucleated RBC 0.01 x10^3/uL Nucleated RBC % 0.0 /100WBC Sodium 136 (135-145) mmol/L Potassium 3.2 L (3.5-5.0) mmol/L Chloride 105 (101-111) mmol/L Carbon Dioxide 26 (21-32) mmol/L Anion Gap 5.0 L (6-13) BUN 13 (6-20) mg/dL Creatinine 0.7 (0.6-1.2) mg/dL Estimated GFR (MDRD) 109 (>89) Glucose 96 (70-100) mg/dL Calcium 8.1 L (8.5-10.3) mg/dL ABX Reporting Has patient been on IV antibiotics over the past 48 hours?: Yes Sepsis Event Note (H) - Evaluation Current Stage of Sepsis: Ruled out Possible source of Sepsis: positive: Pulmonary - Sepsis Criteria Sepsis Criteria: Recorded Heart Rate greater than 90 bpm, WBC count greater than 12,000 or less than 4000 Assessment/Plan - Problem List (1) Pneumonia involving left lung Impression: -Chest x-ray showed a left mid-lung patchy opacity - WBC count elevated at 17, now 10 - Baseline home oxygen 3-5L nasal cannula - Reports of coughing up more sputum - Afebrile - Increased confusion, could not recognize family, which is improved today - Unable to determine if he can protect his airway Plan: Continue IV antibiotics, IVFs, fall precautions and swallow evaluation on Sunday (2) Encephalopathy acute Impression: - Lethargic, confused and combative with nursing staff at times today - Hx of Alzheimer's dementia - Continues to live with his at home Plan: Continue to monitor, treat underlying infection. Social work consult today to evaluate for a possible memory care placement (3) Alzheimer disease Impression: -chart review shows extensive history of this - Reports that he still lives w/ - Combative with staff upon admission, none since - Garbled speech after eating, concerning for aspiration Plan: Continue fall precautions, treat illness and await swallow evaluation (4) COPD (chronic obstructive pulmonary disease) Impression: - Emphysema predominant - Had a pulmonary clinic visit ~2016 per chart review - Was on Spiriva, Advair, and albuterol - Was prescribed home oxygen, 3-5L per nasal cannula Plan: Consider attending pulmonary rehab after this PNA is treated (5) BPH loc w urin obs/LUTS Impression: -chart review; Urology office visit dated March 2018- for gross hematuria - Multiple UTIs - Continue Flomax/finsteride - Indwelling de leon was ordered, but not inserted for known urinary retention and to promote comfort Plan: Bladder scan and if residuals are greater than 300 mL, insert de leon
[2018-06-23] MEDS: QUEtiapine 25 MG TABLET PO PRN (15:25)
[2018-06-23] MEDS: AZITHROMYCIN 250 MG TABLET PO SCH (21:39)
[2018-06-23] MEDS: QUEtiapine 25 MG TABLET PO SCH (21:39)
[2018-06-23] MEDS: LATANOPROST 0.005% OPHTH DROPS EACHEYE SCH (21:45)
[2018-06-24] MEDS: SODIUM CHLORIDE FLUSH 0.9% 10 ML SYRINGE IVP SCH ×4 (04:25→23:53)
[2018-06-24 05:48] LABS: BASOPHILS # (AUTO) 0.1 10^3/uL (0.0-0.1); EOSINOPHILS # (AUTO) 0.3 10^3/uL (0.0-0.7); EOSINOPHILS % (AUTO) 3.9 %; HGB - HEMOGLOBIN 13.4 g/dL (14.0-18.0); LYMPHOCYTES # (AUTO) 1.4 10^3/uL (1.5-3.5); LYMPHOCYTES % (AUTO) 15.8 %; MEAN CORPUSCULAR HEMOGLOBIN 30.4 pg (27.0-31.0); MEAN CORPUSCULAR VOLUME 89.2 fL (80.0-94.0); MEAN PLATELET VOLUME 7.6 fL (7.4-11.4); MONOCYTES # (AUTO) 0.9 10^3/uL (0.0-1.0); MONOCYTES % (AUTO) 10.4 %; NEUTROPHILS # (AUTO) 5.9 10^3/uL (1.5-6.6); NEUTROPHILS % (AUTO) 68.9 %; PLT - PLATELET COUNT 177 10^3/uL (130-450); RED BLOOD COUNT 4.42 10^6/uL (4.70-6.10); RED CELL DISTRIBUTION WIDTH 15.1 % (12.0-15.0); WHITE BLOOD COUNT 8.6 x10^3/uL (4.8-10.8)
[2018-06-24 05:53] LABS: CALCIUM 8.6 mg/dL (8.5-10.3); CREATININE 0.6 mg/dL (0.6-1.2)
[2018-06-24] MEDS: PANTOPRAZOLE 40 MG TABLET PO SCH (06:34)
[2018-06-24] MEDS: BUDESONIDE 0.5 MG/2 ML NEB INH SCH ×2 (09:26→19:28)
[2018-06-24] MEDS: LORATADINE 10 MG TABLET PO SCH (09:59)
[2018-06-24] MEDS: TAMSULOSIN 0.4 MG CAPSULE PO SCH (09:59)
[2018-06-24] MEDS: cefTRIAXone 1 GM in SODIUM CHLORIDE 0.9% MINIBAG 100 ML IV SCH (09:59)
[2018-06-24] MEDS: DOCUSATE SODIUM 250 MG CAPSULE PO SCH (09:59)
[2018-06-24] MEDS: ASPIRIN EC 81 MG TABLET PO SCH (09:59)
[2018-06-24] MEDS: TIMOLOL 0.5% OPHTH DROPS EACHEYE SCH ×2 (10:25→23:53)
[2018-06-24] MEDS: POLYETHYLENE GLYCOL 3350 17 GM PACKET PO SCH (10:25)
[2018-06-24] MEDS: SENNA 8.6 MG TABLET PO SCH (10:25)
--- NOTE | 2018-06-24 15:12 | PROVIDER PROGRESS NOTE ---
Subjective - Prog Note Date Prog Note Date: 06/24/18 Prog Note Time: 15:10 - Subjective Pt reports feeling: Improved Subjective: Anjum offers no complaints, has not been combative, and appears comfortable. His and daughter are at the bedside and have questions on length of stay and next steps. They are appreciative of Palliative care consult, which is in process. Current Medications - Current Medications Current Medications: Active Medications: Acetaminophen (Tylenol) 650 mg PO Q4HR PRN Albuterol/Ipratropium (Duoneb) 3 ml INH Q4HR PRN Aspirin (Ecotrin) 81 mg PO DAILY [facility] Azithromycin (Zithromax) 250 mg PO DAILY@2100 [facility] Budesonide (Pulmicort) 0.5 mg INH RTBID [facility] Docusate Sodium (Colace 250mg Capsule) 250 - 500 mg PO DAILY [facility] Finasteride (Proscar) 5 mg PO DAILY [facility] Ceftriaxone Sodium 1 gm/ (Sodium Chloride) 100 mls @ 200 mls/hr IV DAILY [facility] Latanoprost (Xalatan Ophth Drops) 1 drops EACHEYE QPM [facility] Lidocaine HCl (Xylocaine Uro-Jet 2%) 2.5 ml UR Q6H PRN Loratadine (Claritin) 10 mg PO DAILY [facility] Pantoprazole Sodium (Protonix) 40 mg PO QDAC [facility] Polyethylene Glycol (Miralax) 17 gm PO DAILY [facility] Quetiapine Fumarate (Seroquel) 25 mg PO QPM [facility] Quetiapine Fumarate (Seroquel) 25 mg PO QPM PRN Quetiapine Fumarate (Seroquel) 25 mg PO Q4H PRN Senna (Senokot) 8.6 - 17.2 mg PO DAILY [facility] Tamsulosin HCl (Flomax) 0.4 mg PO DAILY [facility] Timolol Maleate (Timoptic 0.5% Ophth Drops) 1 drops EACHEYE BID [facility] Aspirin [Adult Low Dose Aspirin EC] 81 mg PO DAILY 12/01/16 Fexofenadine HCl 180 mg PO DAILY 12/01/16 Finasteride 5 mg PO DAILY 12/01/16 Fluticasone/Salmeterol [Advair 500-50 Diskus] 1 puffs INH BID 12/01/16 Omeprazole 20 mg PO QDAC 12/01/16 Tamsulosin HCl [Flomax] 0.4 mg PO DAILY 12/01/16 Tiotropium [place] [Spiriva] 2 puffs INH DAILY 12/01/16 hydroCHLOROthiazide [Hydrodiuril] 12.5 mg PO DAILY 12/01/16 Cholecalciferol [Vitamin D3] 5,000 units PO DAILY 06/22/18 Latanoprost 0.005% Ophth Drops [Xalatan Ophth Drops] 1 drops EACHEYE QPM 06/22/18 Multivitamin [Theragran] 1 tab PO DAILY 06/22/18 QUEtiapine [SEROquel] 25 mg PO QPM PRN 06/22/18 Timolol 0.5% Ophth Drops [Timoptic 0.5% Ophth Drops] 1 drops EACHEYE BID 06/22/18 Tiotropium [place] [Spiriva] 1 puffs INH QPM 06/22/18 Objective - Vital Signs/Intake & Output Vital Signs: Vital Signs x48h Temp Pulse Pulse Resp BP Pulse Ox 06/24/18 09:30 59 L 16 06/24/18 08:00 37.2 C 81 19 127/83 H 94 Intake & Output: Intake & Output 06/21/18 06/22/18 06/23/18 06/24/18 23:59 23:59 23:59 23:59 Intake Total 1250 2351.667 2310 460 Output Total 775 800 545 Balance 1250 7948.566 5869 -85 - Objective General Appearance: positive: No acute distress, Alert Eyes Bilateral: positive: PERRL Eyes: OU Conjunctivae pale ENT: positive: Pharynx nml, No signs of dehydration Neck: positive: Thyroid nml, No JVD, Trachea midline Respiratory: positive: Chest non-tender, No respiratory distress, Rhonchi Cardiovascular: positive: Regular rate & rhythm, No gallop, Systolic murmur Peripheral Pulses: 1+ Radial (R), 1+ Radial (L) Abdomen: positive: Non-tender, Nml bowel sounds Back: positive: Nml inspection Skin: positive: No rash, Warm, Dry Extremities: positive: Non-tender, Full ROM, Nml appearance, No pedal edema Neurologic/Psychiatric: positive: Disoriented to person, Disoriented to place, Disoriented to time, Weakness, Sensory loss, Slurred/abnml speech, Depressed mood/affect, Other (baseline profound dementia) Reflexes: Bicep (R): 2+, Bicep (L): 2+ - Lab Results Fish Bones: 06/24/18 04:56 06/24/18 04:56 Other Labs: Lab Results x24hrs 06/24/18 06/24/18 Range/Units 04:56 04:56 WBC 8.6 (4.8-10.8) x10^3/uL RBC 4.42 L (4.70-6.10) 10^6/uL Hgb 13.4 L (14.0-18.0) g/dL Hct 39.4 L (42.0-52.0) % MCV 89.2 (80.0-94.0) fL MCH 30.4 (27.0-31.0) pg MCHC 34.0 (32.0-36.0) g/dL RDW 15.1 H (12.0-15.0) % Plt Count 177 (130-450) 10^3/uL MPV 7.6 (7.4-11.4) fL Neut # (Auto) 5.9 (1.5-6.6) 10^3/uL Lymph # (Auto) 1.4 L (1.5-3.5) 10^3/uL [place] # (Auto) 0.9 (0.0-1.0) 10^3/uL Eos # (Auto) 0.3 (0.0-0.7) 10^3/uL Baso # (Auto) 0.1 (0.0-0.1) 10^3/uL Absolute Nucleated RBC 0.01 x10^3/uL Nucleated RBC % 0.2 /100WBC Sodium 139 (135-145) mmol/L Potassium 3.4 L (3.5-5.0) mmol/L Chloride 104 (101-111) mmol/L Carbon Dioxide 27 (21-32) mmol/L Anion Gap 8.0 (6-13) BUN 12 (6-20) mg/dL Creatinine 0.6 (0.6-1.2) mg/dL Estimated GFR (MDRD) 130 (>89) Glucose 89 (70-100) mg/dL Calcium 8.6 (8.5-10.3) mg/dL ABX Reporting Has patient been on IV antibiotics over the past 48 hours?: Yes Sepsis Event Note (H) - Evaluation Current Stage of Sepsis: Ruled out Possible source of Sepsis: positive: Pulmonary Assessment/Plan - Problem List (1) Pneumonia involving left lung Impression: -Chest x-ray showed a left mid-lung patchy opacity - WBC count elevated at 17, now 8.6 - Baseline home oxygen 3-5L nasal cannula - Reports of coughing up more sputum - Afebrile - Increased confusion, could not recognize family, which is improved - Unable to determine if he can protect his airway Plan: Continue IV antibiotics, IVFs, fall precautions and swallow evaluation- pending (2) Encephalopathy acute Impression: - Lethargic, confused and combative with nursing staff at times today - Hx of Alzheimer's dementia - Continues to live with his at home and daughter to help Plan: Continue to monitor, treat underlying infection. Social work consult today to evaluate for a possible memory care placement (3) Alzheimer disease Impression: -Chest x-ray showed a left mid-lung patchy opacity - WBC count elevated at 17, now 10 - Baseline home oxygen 3-5L nasal cannula - Reports of coughing up more sputum - Afebrile - Increased confusion, could not recognize family, which is improved today - Unable to determine if he can protect his airway Plan: Continue IV antibiotics, IVFs, fall precautions and swallow evaluation is pending (4) COPD (chronic obstructive pulmonary disease) Impression: - Emphysema predominant - Had a pulmonary clinic visit ~2016 per chart review - Was on Spiriva, Advair, and albuterol - Was prescribed home oxygen, 3-5L per nasal cannula Plan: Consider attending pulmonary rehab after this PNA is treated (5) BPH loc w urin obs/LUTS Impression: - Bladder scans remain under 300 mL, so no de leon Plan: Continue to monitor for retention.
[2018-06-24] MEDS: FINASTERIDE 5 MG TABLET PO SCH (16:29)
[2018-06-24] MEDS: QUEtiapine 25 MG TABLET PO PRN (18:04)
[2018-06-24] MEDS: AZITHROMYCIN 250 MG TABLET PO SCH (21:53)
[2018-06-24] MEDS: QUEtiapine 25 MG TABLET PO SCH (21:53)
[2018-06-24] MEDS: LATANOPROST 0.005% OPHTH DROPS EACHEYE SCH (23:53)
[2018-06-25] MEDS: QUEtiapine 25 MG TABLET PO PRN ×3 (02:23→15:58)
[2018-06-25 06:54] LABS: CALCIUM 8.6 mg/dL (8.5-10.3); CREATININE 0.8 mg/dL (0.6-1.2)
[2018-06-25] MEDS: PANTOPRAZOLE 40 MG TABLET PO SCH (07:00)
[2018-06-25 07:12] LABS: BASOPHILS # (AUTO) 0.1 10^3/uL (0.0-0.1); BASOPHILS % (AUTO) 1.8 %; EOSINOPHILS # (AUTO) 0.3 10^3/uL (0.0-0.7); EOSINOPHILS % (AUTO) 3.7 %; HGB - HEMOGLOBIN 13.7 g/dL (14.0-18.0); LYMPHOCYTES # (AUTO) 1.4 10^3/uL (1.5-3.5); LYMPHOCYTES % (AUTO) 18.1 %; MEAN CORPUSCULAR HEMOGLOBIN 30.2 pg (27.0-31.0); MEAN CORPUSCULAR HGB CONC 34.2 g/dL (32.0-36.0); MEAN CORPUSCULAR VOLUME 88.3 fL (80.0-94.0); MEAN PLATELET VOLUME 7.6 fL (7.4-11.4); MONOCYTES # (AUTO) 0.7 10^3/uL (0.0-1.0); MONOCYTES % (AUTO) 9.1 %; NEUTROPHILS # (AUTO) 5.4 10^3/uL (1.5-6.6); NEUTROPHILS % (AUTO) 67.3 %; PLT - PLATELET COUNT 198 10^3/uL (130-450); RED BLOOD COUNT 4.54 10^6/uL (4.70-6.10); RED CELL DISTRIBUTION WIDTH 14.9 % (12.0-15.0); WHITE BLOOD COUNT 7.9 x10^3/uL (4.8-10.8)
[2018-06-25 07:43] LABS: RBC MORPHOLOGY (MULTIPLE) 1+ ANISOCYTOSIS (NORMAL)
[2018-06-25] MEDS ORDERED: POTASSIUM CHLORIDE 20 MEQ TABLET PO ONE (09:00)
[2018-06-25] MEDS: cefTRIAXone 1 GM in SODIUM CHLORIDE 0.9% MINIBAG 100 ML IV SCH (10:33)
[2018-06-25] MEDS: FINASTERIDE 5 MG TABLET PO SCH (10:33)
[2018-06-25] MEDS: POLYETHYLENE GLYCOL 3350 17 GM PACKET PO SCH (10:33)
[2018-06-25] MEDS: DOCUSATE SODIUM 250 MG CAPSULE PO SCH (10:34)
[2018-06-25] MEDS: ASPIRIN EC 81 MG TABLET PO SCH (10:34)
[2018-06-25] MEDS: TAMSULOSIN 0.4 MG CAPSULE PO SCH (10:34)
[2018-06-25] MEDS: LORATADINE 10 MG TABLET PO SCH (10:34)
[2018-06-25] MEDS: SENNA 8.6 MG TABLET PO SCH (10:34)
[2018-06-25] MEDS: TIMOLOL 0.5% OPHTH DROPS EACHEYE SCH ×2 (10:35→20:51)
[2018-06-25] MEDS: SODIUM CHLORIDE FLUSH 0.9% 10 ML SYRINGE IVP SCH ×2 (10:35→15:58)
[2018-06-25] MEDS: BUDESONIDE 0.5 MG/2 ML NEB INH SCH ×2 (10:46→19:48)
--- NOTE | 2018-06-25 10:49 | CONSULTATION NOTE ---
Palliative Care Consultation - Referral Referring Provider: Radha STEVENSON. Dr Sheets is PCP Time of Visit: Chaitanya 06/25/2018. 9:25-9:30. 9:45-10:20 Referral setting: Hospitalized patient Referral Reason: Pneumonia / Pal Care - Information Sources Records reviewed: RN notes reviewed, Previous records reviewed History/Review of Systems obtained from: Patient, Family, Other (Hospitalist [employer]) Exam limitations: Clinical condition (Alzheimer's dementia) - History of Present Illness Brief History of Present Illness: 77-year-old male, frail and thin, has Alzheimer's and is dependent on 24-hour oxygen. He was hospitalized 06/21/18 for pneumonia of left lung. He lives at home with his , Abida, on the property of their only daughter, Jayla and her family. Medical History: Alzheimer's dementia; COPD oxygen dependent 3L day, 5L nighttime; HTN; GERD; BPH; glaucoma; h/o tobacco use disorder; h/o UTIs; h/o pneumonia. Patient is assessed today in hospital by Palliative Care [employer], in the presence of daughter, Jayla. Patient's spouse, Abida, has an acute case of gastritis this morning and is unable to be present. Family wants patient discharged back home but is concerned about the safety s ituation at home since is primary caregiver and is acutely ill with diarrhea today. Daughter notes that has been consistently resistant to bringing in any outside caregiver/respite support up to now. Patient is alert, though lethargic, sometimes able to respond to questions but exhibits uncertainty or poor comprehension, often looks towards daughter for information/answers to the question. His responses sometimes appropriate, sometimes non sequiturs or he just appears confused. He states he is frustrated, but he cannot elaborate. He appears to not understand he is here for pneumonia He does report he is fatigued. He denies pain, SOA, is confused when I asked about constipation. Discussed with family that current plan is to D/C home, possibly with HH PT and/or other modalities. Daughter understands that hospitalist OT is to also evaluate him and that CLAY TRANSPORTER has evaluated him for swallow. Palliative care will continue to follow patient after discharge; daughter is in agreement. Medical/Surgical History - Past Medical History Cardiovascular: reports: Hypertension Respiratory: reports: COPD Neuro: Alzhiemer's, Dementia Neuro: reports: Alzhiemer's Endocrine/Autoimmune: reports: None GI: reports: GERD : reports: Benign prostate hypertrophy, Other HEENT: reports: Chronic vision loss Psych: reports: None Musculoskeletal: reports: None Derm: reports: None MRSA Hx?: No - Past Surgical History General: reports: Other HEENT: reports: Cataracts - Substance History Tobacco Details: Cigarettes (h/o tobacco use disorder; assume former smoker) Social History - Living Situation Living arrangement: At home Living Situation: With spouse/s.o., With family Support System: Patient lives in a private residence with his , Abida. They live in an independent unit next door to (on the property of) their only child, daughter Abida, with her and two children, 14 and 12. , Abida, is the sole caregiver for the patient. She has been resistant to bringing in outside caregiver support. Family History - Family History Family History Comment/Other: Non contributory. Medications/Allergies - Medications Active Medication List: Active Medications Acetaminophen (Tylenol) 650 mg PO Q4HR PRN PRN Reason: Pain 1 to 4 Last Admin: 06/21/18 23:54 Dose: 650 mg Albuterol/Ipratropium (Duoneb) 3 ml INH Q4HR PRN PRN Reason: Wheezing Last Admin: 06/23/18 07:26 Dose: 3 ml Aspirin (Ecotrin) 81 mg PO DAILY [facility] Last Admin: 06/25/18 10:34 Dose: 81 mg Azithromycin (Zithromax) 250 mg PO DAILY@2100 [facility] Stop: 06/25/18 21:01 Last Admin: 06/24/18 21:53 Dose: 250 mg Budesonide (Pulmicort) 0.5 mg INH RTBID [facility] Last Admin: 06/24/18 19:28 Dose: 0.5 mg Docusate Sodium (Colace 250mg Capsule) 250 - 500 mg PO DAILY [facility] Last Admin: 06/25/18 10:34 Dose: 250 mg Finasteride (Proscar) 5 mg PO DAILY [facility] Last Admin: 06/25/18 10:33 Dose: 5 mg Ceftriaxone Sodium 1 gm/ (Sodium Chloride) 100 mls @ 200 mls/hr IV DAILY [facility] Last Admin: 06/25/18 10:33 Dose: 200 mls/hr Latanoprost (Xalatan Ophth Drops) 1 drops EACHEYE QPM [facility] Last Admin: 06/24/18 23:53 Dose: Not Given Lidocaine HCl (Xylocaine Uro-Jet 2%) 2.5 ml UR Q6H PRN PRN Reason: PAIN Loratadine (Claritin) 10 mg PO DAILY [facility] Last Admin: 06/25/18 10:34 Dose: 10 mg Pantoprazole Sodium (Protonix) 40 mg PO QDAC [facility] Last Admin: 06/25/18 07:00 Dose: Not Given Polyethylene Glycol (Miralax) 17 gm PO DAILY [facility] Last Admin: 06/25/18 10:33 Dose: 17 gm Quetiapine Fumarate (Seroquel) 25 mg PO QPM [facility] Last Admin: 06/24/18 21:53 Dose: 25 mg Quetiapine Fumarate (Seroquel) 25 mg PO QPM PRN PRN Reason: HALLUCINATIONS Quetiapine Fumarate (Seroquel) 25 mg PO Q4H PRN PRN Reason: Anxiety Last Admin: 06/25/18 10:34 Dose: 25 mg Senna (Senokot) 8.6 - 17.2 mg PO DAILY [facility] Last Admin: 06/25/18 10:34 Dose: 8.6 mg Sodium Chloride (Normal Saline Flush 0.9%) 10 ml IVP PRN PRN PRN Reason: NEEDED PER PROVIDER ORDERS Last Admin: 06/24/18 10:25 Dose: 10 ml Sodium Chloride (Normal Saline Flush 0.9%) 10 ml IVP 0100,0900,1700 [facility] Last Admin: 06/25/18 10:35 Dose: 10 ml Tamsulosin HCl (Flomax) 0.4 mg PO DAILY [facility] Last Admin: 06/25/18 10:34 Dose: 0.4 mg Timolol Maleate (Timoptic 0.5% Ophth Drops) 1 drops EACHEYE BID [facility] Last Admin: 06/25/18 10:35 Dose: 1 drops Aspirin [Adult Low Dose Aspirin EC] 81 mg PO DAILY 12/01/16 Fexofenadine HCl 180 mg PO DAILY 12/01/16 Finasteride 5 mg PO DAILY 12/01/16 Fluticasone/Salmeterol [Advair 500-50 Diskus] 1 puffs INH BID 12/01/16 Omeprazole 20 mg PO QDAC 12/01/16 Tamsulosin HCl [Flomax] 0.4 mg PO DAILY 12/01/16 Tiotropium [place] [Spiriva] 2 puffs INH DAILY 12/01/16 hydroCHLOROthiazide [Hydrodiuril] 12.5 mg PO DAILY 12/01/16 Cholecalciferol [Vitamin D3] 5,000 units PO DAILY 06/22/18 Latanoprost 0.005% Ophth Drops [Xalatan Ophth Drops] 1 drops EACHEYE QPM 06/22/18 Multivitamin [Theragran] 1 tab PO DAILY 06/22/18 QUEtiapine [SEROquel] 25 mg PO QPM PRN 06/22/18 Timolol 0.5% Ophth Drops [Timoptic 0.5% Ophth Drops] 1 drops EACHEYE BID 06/22/18 Tiotropium [place] [Spiriva] 1 puffs INH QPM 06/22/18 - Allergies Allergies/Adverse Reactions: Allergies Allergy/AdvReac Type Severity Reaction Status Date / Time No Known Drug Allergies Allergy Verified 06/21/18 21:42 Review of Systems - Constitutional Constitutional: reports: Fatigue, Weakness, Weight loss (Current weight 61kg, 134.2 lbs, BMI 18.8, in current hospitalization. Previous weight in ED recorded 74.843kg, 164.7 lbs, BMI 23, 9690-9759. 30lb weight loss over 4 years) - Eyes Eyes: reports: Vision loss - Cardiovascular Cardiovascular: reports: Decr. exercise tolerance. denies: Irregular heart rate, Chest pain, Edema - Respiratory Respiratory: reports: Cough (chronic cough reported in previous medical records). denies: SOB at rest (He denies but is on continual oxygen) - Gastrointestinal Gastrointestinal: reports: Other (Low BMI 18.8) - Musculoskeletal Musculoskeletal: reports: Other (Denies pain). denies: Assistive devices (no walker) - Integumentary Integumentary: reports: Dryness - Neurological Neurological: reports: Memory problems, Pre-existing deficit, Abnormal gait (Unsteady), Other (weak voice) - Psychiatric Psychiatric: reports: Aggitation (On seroquel at home), Behavior disturbances (Initially combative with staff) - Other Findings Other Findings: Limited ROS Physical Exam - Vital Signs Vital Signs: Vital Signs x48h Temp Pulse Resp BP Pulse Ox 06/25/18 07:32 98.2 F 65 16 150/94 H 95 - Physical Exam General Appearance: positive: Alert, Lethargic Eyes Bilateral: positive: Normal inspection ENT: positive: No signs of dehydration Neck: positive: Trachea midline Cardiovascular: positive: Regular rate & rhythm, No murmur Respiratory: positive: Chest non-tender, No respiratory distress, Diminished throughout (L lung diminished). negative: Wheezes, Rales, Rhonchi Skin: positive: Dryness Extremities: positive: No pedal edema Neurologic/Psychiatric: positive: Disoriented to time, Unintelligible speech (weak voice, articulates short sentences, hard to understand), Flat affect. negative: Facial droop Palliative Care - POLST Patient has POLST: No Tiredness/Fatigue: Severe (7-10) - Palliative Care Discussion: No POLST found in [facility]. Patient's main caregiver is spouse, Abida. Daughter reports they have discussed bringing more caregiving support in, but Abida is currently resistant to this idea. She has also not wanted to take part in Caregiver Support Groups or trainings. She believes it is her duty as his spouse to be taking care of him. She often refuses help or assistance, whether from the daughter or if daughter suggests bringing in outside help. She waves away offers of help, "she'll take care of it." Daughter is concerned about her mother's capacity to continue to be the sole caregiver. Patient has been ambulatory, has been feeding himself, still likes baths. He needs help dressing. Family is not at this time considering placement in a memory unit. Daughter realizes there is no way Abida could take care of patient if discharged currently. Her concern is that he can't safely be discharged home while his caregiver, Abida, is acutely ill and weak. Patient was able to express that what is most important to him is his family, and their close fishman. He sees his daughter and grandchildren daily and this is important to him. Daughter would welcome continued Palliative Care support and follow-up post- discharge. Results - Lab Results Lab results reviewed: Yes Fish Bones: 06/25/18 06:42 06/25/18 06:42 Lab and Imaging Results: Lab Results x24hrs 06/25/18 06/25/18 Range/Units 06:42 06:42 WBC 7.9 (4.8-10.8) x10^3/uL RBC 4.54 L (4.70-6.10) 10^6/uL Hgb 13.7 L (14.0-18.0) g/dL Hct 40.1 L (42.0-52.0) % MCV 88.3 (80.0-94.0) fL MCH 30.2 (27.0-31.0) pg MCHC 34.2 (32.0-36.0) g/dL RDW 14.9 (12.0-15.0) % Plt Count 198 (130-450) 10^3/uL MPV 7.6 (7.4-11.4) fL Neut # (Auto) 5.4 (1.5-6.6) 10^3/uL Lymph # (Auto) 1.4 L (1.5-3.5) 10^3/uL [place] # (Auto) 0.7 (0.0-1.0) 10^3/uL Eos # (Auto) 0.3 (0.0-0.7) 10^3/uL Baso # (Auto) 0.1 (0.0-0.1) 10^3/uL Absolute Nucleated RBC 0.00 x10^3/uL Nucleated RBC % 0.0 /100WBC Manual Slide Review Indicated RBC Morph Micro Appear 1+ ANISOCYTOSIS (NORMAL) Sodium 138 (135-145) mmol/L Potassium 3.4 L (3.5-5.0) mmol/L Chloride 103 (101-111) mmol/L Carbon Dioxide 27 (21-32) mmol/L Anion Gap 8.0 (6-13) BUN 11 (6-20) mg/dL Creatinine 0.8 (0.6-1.2) mg/dL Estimated GFR (MDRD) 93 (>89) Glucose 103 H (70-100) mg/dL Calcium 8.6 (8.5-10.3) mg/dL Impression and Recommendations - Palliative Care Impression: 77-year-old male, frail and thin, has Alzheimer's and is dependent on 24-hour oxygen, hospitalized 06/21/18 for pneumonia of left lung. Most of history is supplied by family. He lives at home with his , Abida, on the property of their only daughter, Jayla and her family. He is stabilizing and current plan is discharge home; currently it's not a safe environment since /caregiver has acute GI illness. Family would like assessment by therapy (OT, PT, CLAY TRANSPORTER) to evaluate for Home Health therapy. Patient and family would benefit from ongoing Palliative Care monitoring and support at home, including social studies teacher for access to community support and caregiver resources. Recommendations/Counseling Done: Dementia with behaviors: Stabilized. On Seroquel routine and PRN for behavioral disturbances. Pneumonia: Stabilizing, labs improved, WBC now 7.9, down from 17.4 on 06/21. On PO and IV abx. Lungs diminished on L side, no cough, denies SOA, is on continual O2, 3-5L at home. COPD: Restabilizing. On Pulmicort and O2 3-5L/24hr. Duoneb nebulizer as needed started in hospital. General weakness: Therapists to evaluate for HH therapy: PT, OT, CLAY TRANSPORTER. Patient was ambulatory without walker prior to this hospitalization. He is dependent on for care giving needs; acutely ill with gastritis and presently is not currently able to provide care for patient, so imminent discharge would be unsafe. Recommend close follow up with family prior to discharge. Advance Care Planning: EMR shows status as "DNR," but no POL[facility] is on [facility]. Palliative Care service will follow patient when he's at home, will coordinate with family for follow-up home visit this week or next. Time Spent: 40 minutes were spent with more than 50% of the time spent on education, counseling, providing anticipatory guidance, and coordination of care with hospitalist.
--- NOTE | 2018-06-25 16:43 | PROVIDER PROGRESS NOTE ---
Subjective - Subjective Pt reports feeling: No change Subjective: pt report he feel very weak today. pt denies fever, chill, chest pain. pt's daughter concern pt may not safely be discharged to home while his caregiver, Abida, is acutely ill and weak, could not take care of pt. Current Medications - Current Medications Current Medications: Active Medications Acetaminophen (Tylenol) 650 mg PO Q4HR PRN PRN Reason: Pain 1 to 4 Last Admin: 06/21/18 23:54 Dose: 650 mg Albuterol/Ipratropium (Duoneb) 3 ml INH Q4HR PRN PRN Reason: Wheezing Last Admin: 06/23/18 07:26 Dose: 3 ml Aspirin (Ecotrin) 81 mg PO DAILY [facility] [place] Last Admin: 06/25/18 10:34 Dose: 81 mg Azithromycin (Zithromax) 250 mg PO DAILY@2100 [facility] Stop: 06/25/18 21:01 Last Admin: 06/24/18 21:53 Dose: 250 mg Budesonide (Pulmicort) 0.5 mg INH RTBID [facility] [place] Last Admin: 06/25/18 10:46 Dose: 0.5 mg Docusate Sodium (Colace 250mg Capsule) 250 - 500 mg PO DAILY [facility] [place] Last Admin: 06/25/18 10:34 Dose: 250 mg Finasteride (Proscar) 5 mg PO DAILY [facility] [place] Last Admin: 06/25/18 10:33 Dose: 5 mg Ceftriaxone Sodium 1 gm/ (Sodium Chloride) 100 mls @ 200 mls/hr IV DAILY [facility] [place] Last Infusion: 06/25/18 11:39 Dose: Infused Latanoprost (Xalatan Ophth Drops) 1 drops EACHEYE QPM [facility] [place] Last Admin: 06/24/18 23:53 Dose: Not Given Lidocaine HCl (Xylocaine Uro-Jet 2%) 2.5 ml UR Q6H PRN PRN Reason: PAIN Loratadine (Claritin) 10 mg PO DAILY [facility] [place] Last Admin: 06/25/18 10:34 Dose: 10 mg Pantoprazole Sodium (Protonix) 40 mg PO QDAC [facility] [place] Last Admin: 06/25/18 07:00 Dose: Not Given Polyethylene Glycol (Miralax) 17 gm PO DAILY [facility] [place] Last Admin: 06/25/18 10:33 Dose: 17 gm Quetiapine Fumarate (Seroquel) 25 mg PO QPM [facility] [place] Last Admin: 06/24/18 21:53 Dose: 25 mg Quetiapine Fumarate (Seroquel) 25 mg PO QPM PRN PRN Reason: HALLUCINATIONS Quetiapine Fumarate (Seroquel) 25 mg PO Q4H PRN PRN Reason: Anxiety Last Admin: 06/25/18 15:58 Dose: 25 mg Senna (Senokot) 8.6 - 17.2 mg PO DAILY [facility] [place] Last Admin: 06/25/18 10:34 Dose: 8.6 mg Sodium Chloride (Normal Saline Flush 0.9%) 10 ml IVP PRN PRN PRN Reason: NEEDED PER PROVIDER ORDERS Last Admin: 06/24/18 10:25 Dose: 10 ml Sodium Chloride (Normal Saline Flush 0.9%) 10 ml IVP 0100,0900,1700 [facility] [place] Last Admin: 06/25/18 15:58 Dose: 10 ml Tamsulosin HCl (Flomax) 0.4 mg PO DAILY [facility] [place] Last Admin: 06/25/18 10:34 Dose: 0.4 mg Timolol Maleate (Timoptic 0.5% Ophth Drops) 1 drops EACHEYE BID [facility] [place] Last Admin: 06/25/18 10:35 Dose: 1 drops Aspirin [Adult Low Dose Aspirin EC] 81 mg PO DAILY 12/01/16 Fexofenadine HCl 180 mg PO DAILY 12/01/16 Finasteride 5 mg PO DAILY 12/01/16 Fluticasone/Salmeterol [Advair 500-50 Diskus] 1 puffs INH BID 12/01/16 Omeprazole 20 mg PO QDAC 12/01/16 Tamsulosin HCl [Flomax] 0.4 mg PO DAILY 12/01/16 Tiotropium [place] [Spiriva] 2 puffs INH DAILY 12/01/16 hydroCHLOROthiazide [Hydrodiuril] 12.5 mg PO DAILY 12/01/16 Cholecalciferol [Vitamin D3] 5,000 units PO DAILY 06/22/18 Latanoprost 0.005% Ophth Drops [Xalatan Ophth Drops] 1 drops EACHEYE QPM 0 06/22/18 Multivitamin [Theragran] 1 tab PO DAILY 06/22/18 QUEtiapine [SEROquel] 25 mg PO QPM PRN 06/22/18 Timolol 0.5% Ophth Drops [Timoptic 0.5% Ophth Drops] 1 drops EACHEYE BID 06/22/18 Tiotropium [place] [Spiriva] 1 puffs INH QPM 06/22/18 Objective - Vital Signs/Intake & Output Reviewed Vital Signs: Yes Vital Signs: Vital Signs x48h Temp Pulse Pulse Resp BP Pulse Ox 06/25/18 16:00 37.2 C 67 20 149/86 H 97 06/25/18 10:53 36.8 C 94 16 94 06/25/18 10:51 65 16 Intake & Output: Intake & Output 06/22/18 06/23/18 06/24/18 06/25/18 23:59 23:59 23:59 23:59 Intake Total 2351.667 2310 780 1140 Output Total 984 584 9576 625 Balance 3258.697 8243 -315 515 - Objective General Appearance: positive: No acute distress, Alert. negative: Lethargic Eyes Bilateral: positive: Normal inspection, PERRL, No lid inflammation, Conjunctivae nml ENT: positive: ENT inspection nml, Pharynx nml, No signs of dehydration. negative: Purulent nasal drainage, Pharyngeal erythema, Oral lesions Neck: positive: Nml inspection, Thyroid nml, No JVD, Trachea midline. negative: Thyromegaly, Lymphadenopathy (R), Lymphadenopathy (L), Stiff neck, Swelling/bruising, Tracheal deviation Respiratory: positive: Chest non-tender, No respiratory distress, Breath sounds nml. negative: Wheezes, Rales, Rhonchi Cardiovascular: positive: Regular rate & rhythm, No murmur, No gallop. negati ve: Irregularly irregular, Extrasystoles, Tachycardia, Bradycardia, JVD present, Systolic murmur, Diastolic murmur Peripheral Pulses: 2+ Radial (R), 2+ Radial (L), 2+ Dorsalis pedis (R), 2+ Dorsalis pedis (L) Abdomen: positive: Non-tender, No organomegaly, Nml bowel sounds, No distention. negative: Tenderness, Guarding, Rebound Back: positive: Nml inspection. negative: CVA tenderness (R), CVA tenderness (L) Skin: positive: Color nml, No rash, Warm, Dry. negative: Cyanosis, Diaphoresis, Pallor Extremities: positive: Non-tender, Full ROM, Nml appearance. negative: Calf tenderness, Joint swelling, Daya's sign/cords Neurologic/Psychiatric: positive: Mood/affect nml. negative: Weakness, Sensory loss, Facial droop, Slurred/abnml speech, Depressed mood/affect - Lab Results Fish Bones: 06/25/18 06:42 06/25/18 06:42 Other Labs: Lab Results x24hrs 06/25/18 06/25/18 Range/Units 06:42 06:42 WBC 7.9 (4.8-10.8) x10^3/uL RBC 4.54 L (4.70-6.10) 10^6/uL Hgb 13.7 L (14.0-18.0) g/dL Hct 40.1 L (42.0-52.0) % MCV 88.3 (80.0-94.0) fL MCH 30.2 (27.0-31.0) pg MCHC 34.2 (32.0-36.0) g/dL RDW 14.9 (12.0-15.0) % Plt Count 198 (130-450) 10^3/uL MPV 7.6 (7.4-11.4) fL Neut # (Auto) 5.4 (1.5-6.6) 10^3/uL Lymph # (Auto) 1.4 L (1.5-3.5) 10^3/uL [place] # (Auto) 0.7 (0.0-1.0) 10^3/uL Eos # (Auto) 0.3 (0.0-0.7) 10^3/uL Baso # (Auto) 0.1 (0.0-0.1) 10^3/uL Absolute Nucleated RBC 0.00 x10^3/uL Nucleated RBC % 0.0 /100WBC Manual Slide Review Indicated RBC Morph Micro Appear 1+ ANISOCYTOSIS (NORMAL) Sodium 138 (135-145) mmol/L Potassium 3.4 L (3.5-5.0) mmol/L Chloride 103 (101-111) mmol/L Carbon Dioxide 27 (21-32) mmol/L Anion Gap 8.0 (6-13) BUN 11 (6-20) mg/dL Creatinine 0.8 (0.6-1.2) mg/dL Estimated GFR (MDRD) 93 (>89) Glucose 103 H (70-100) mg/dL Calcium 8.6 (8.5-10.3) mg/dL ABX Reporting Has patient been on IV antibiotics over the past 48 hours?: Yes Sepsis Event Note (H) - Evaluation Current Stage of Sepsis: Ruled out Possible source of Sepsis: positive: Pulmonary - Sepsis Criteria Sepsis Criteria: Recorded Heart Rate greater than 90 bpm, WBC count greater than 12,000 or less than 4000 Assessment/Plan - Problem List (1) Pneumonia involving left lung Impression: stable, continue finish antibiotics course (2) Encephalopathy acute resoled, and stable, as pt's baseline, continue monitor, and support (3) Alzheimer disease stable, as pt's baseline (4) COPD (chronic obstructive pulmonary disease) stable, as pt's baseline, continue breath treatment, PRN for O2 supplement (5) BPH loc w urin obs/LUTS stable, continue home meds (6) weakness continue PT/OT evaluation and treatment for pt's d/c safety, plan d/c pt on tomorrow with home caregiver available.
[2018-06-25] MEDS ORDERED: HALOPERIDOL 5 MG/ML VIAL IM ONE (17:39)
[2018-06-25] MEDS ORDERED: HALOPERIDOL 5 MG/ML VIAL ONE (17:47)
[2018-06-25] MEDS: QUEtiapine 25 MG TABLET PO SCH (20:47)
[2018-06-25] MEDS: AZITHROMYCIN 250 MG TABLET PO SCH (20:47)
[2018-06-25] MEDS: LATANOPROST 0.005% OPHTH DROPS EACHEYE SCH (20:49)
[2018-06-26] MEDS: SODIUM CHLORIDE FLUSH 0.9% 10 ML SYRINGE IVP SCH ×4 (00:41→23:41)
[2018-06-26] MEDS: PANTOPRAZOLE 40 MG TABLET PO SCH (06:24)
[2018-06-26] MEDS: BUDESONIDE 0.5 MG/2 ML NEB INH SCH ×2 (07:55→19:46)
[2018-06-26] MEDS ORDERED: POTASSIUM CHLORIDE 20 MEQ TABLET PO SCH (07:56)
[2018-06-26] MEDS: DOCUSATE SODIUM 250 MG CAPSULE PO SCH (09:31)
[2018-06-26] MEDS: SENNA 8.6 MG TABLET PO SCH (09:31)
[2018-06-26] MEDS: LORATADINE 10 MG TABLET PO SCH (09:31)
[2018-06-26] MEDS: FINASTERIDE 5 MG TABLET PO SCH (09:31)
[2018-06-26] MEDS: QUEtiapine 25 MG TABLET PO PRN ×2 (09:31→23:33)
[2018-06-26] MEDS: TAMSULOSIN 0.4 MG CAPSULE PO SCH (09:32)
[2018-06-26] MEDS: ASPIRIN EC 81 MG TABLET PO SCH (09:32)
[2018-06-26] MEDS: POLYETHYLENE GLYCOL 3350 17 GM PACKET PO SCH (09:33)
--- NOTE | 2018-06-26 11:18 | Discharge Plan ---
Discharge Plan Disposition: 06 Home Health Service Condition: Poor Prescriptions: cephALEXin [Keflex] 250 mg PO Q6HR #20 capsule Saccharomyces Boulardii [Florastor] 250 mg PO DAILY #5 capsule Diet: Regular Activity Restrictions: Activity as Tolerated Shower Restrictions: No (fall precaution, caregiver closely monitor) Instruction Topics: Pneumonia, Cephalexin tablets or capsules Additional Instructions or Follow Up instructions: You may followup your PCP in one week. You were found to have pneumonia. You were treated with antibiotics. Keflex is prescribed for continue the antibiotics course. Home health PT/OT were arranged for pt. Should your symptoms return or worsen, you may present ER or call 911, or your PCP for help. Follow-Up Care: Home Health - PT, Home Health - OT No Smoking: If you smoke, Please STOP! Call for help. Follow-up with: Silas Sheets MD [Primary Care Provider] -
--- NOTE | 2018-06-26 11:24 | DISCHARGE SUMMARY ---
Discharge Summary Discharge Date: 06/26/18 Discharging Provider: ROSS Primary Care Provider: Dr. Sheets Condition at Discharge: Poor Discharge Disposition: Home Health Service Discharge Facility Name: home - ALLERGIES Allergies/Adverse Reactions: Allergies Allergy/AdvReac Type Severity Reaction Status Date / Time No Known Drug Allergies Allergy Verified 06/21/18 21:42 - MEDICATIONS Home Medications: Ambulatory Orders Medication Instructions Recorded Confirmed Aspirin [Adult Low Dose Aspirin EC] 81 mg PO DAILY 12/01/16 06/22/18 Fexofenadine HCl 180 mg PO DAILY 12/01/16 06/22/18 Finasteride 5 mg PO DAILY 12/01/16 06/22/18 Fluticasone/Salmeterol [Advair 1 puffs INH BID 12/01/16 06/22/18 500-50 Diskus] Omeprazole 20 mg PO QDAC 12/01/16 06/22/18 Tamsulosin HCl [Flomax] 0.4 mg PO DAILY 12/01/16 06/22/18 Tiotropium [place] [Spiriva] 2 puffs INH DAILY 12/01/16 06/22/18 hydroCHLOROthiazide [Hydrodiuril] 12.5 mg PO DAILY 12/01/16 06/22/18 Cholecalciferol [Vitamin D3] 5,000 units PO DAILY 06/22/18 06/22/18 Latanoprost 0.005% Ophth Drops 1 drops EACHEYE QPM 06/22/18 06/22/18 [Xalatan Ophth Drops] Multivitamin [Theragran] 1 tab PO DAILY 06/22/18 06/22/18 QUEtiapine [SEROquel] 25 mg PO QPM PRN 06/22/18 06/22/18 Timolol 0.5% Ophth Drops [Timoptic 1 drops EACHEYE BID 06/22/18 06/22/18 0.5% Ophth Drops] Tiotropium [place] [Spiriva] 1 puffs INH QPM 06/22/18 06/22/18 Saccharomyces Boulardii [Florastor] 250 mg PO DAILY #5 capsule 06/26/18 cephALEXin [Keflex] 250 mg PO Q6HR #20 capsule 06/26/18 - LABS Result Diagrams: 06/25/18 06:42 06/25/18 06:42 - SEPSIS Current Stage of Sepsis: Ruled out Possible source of Sepsis: Pulmonary Sepsis Criteria: Recorded Heart Rate greater than 90 bpm, WBC count greater than 12,000 or less than 4000
[2018-06-26] MEDS: cephALEXin 250 MG CAPSULE PO SCH ×3 (14:39→23:32)
[2018-06-26] MEDS: TIMOLOL 0.5% OPHTH DROPS EACHEYE SCH ×2 (14:47→22:20)
--- NOTE | 2018-06-26 16:11 | PROVIDER PROGRESS NOTE ---
Subjective - Prog Note Date Prog Note Date: 06/26/18 - Subjective Pt reports feeling: No change Subjective: ERNESTINA Griselda called pt's daughter before discharge. pt's daughter state they will come to hospital to pick pt to home per adoption social worker state. when pt's family come, pt's daughter and complain pt is not better and is unwilling to bring pt go to home. They complain pt have mental status change, less active with family, some difficult to walk, complain of back pain. PT re-evaluated pt again. PT's re-evaluation as "mod. a x 2 out of bed to chair/alarm; pt. not ambulating well." because of pt's reported AMS and back pain, CT of head and lumbar spinal are ordered to R/O acute change. pt has hx of advanced dementia. Both pt's daughter and agreed pt can be transferred to SNF for continuing training if pt is qualified for SNF and needed. Current Medications - Current Medications Current Medications: Active Medications Acetaminophen (Tylenol) 650 mg PO Q4HR PRN PRN Reason: Pain 1 to 4 Last Admin: 06/21/18 23:54 Dose: 650 mg Albuterol/Ipratropium (Duoneb) 3 ml INH Q4HR PRN PRN Reason: Wheezing Last Admin: 06/23/18 07:26 Dose: 3 ml Aspirin (Ecotrin) 81 mg PO DAILY [facility] Last Admin: 06/26/18 09:32 Dose: 81 mg Budesonide (Pulmicort) 0.5 mg INH RTBID [facility] Last Admin: 06/26/18 07:55 Dose: 0.5 mg Cephalexin (Keflex) 250 mg PO Q6HR [facility] Last Admin: 06/26/18 17:17 Dose: 250 mg Docusate Sodium (Colace 250mg Capsule) 250 - 500 mg PO DAILY [facility] Last Admin: 06/26/18 09:31 Dose: Not Given Finasteride (Proscar) 5 mg PO DAILY [facility] Last Admin: 06/26/18 09:31 Dose: 5 mg Latanoprost (Xalatan Ophth Drops) 1 drops EACHEYE QPM [facility] Last Admin: 06/25/18 20:49 Dose: 1 each Lidocaine HCl (Xylocaine Uro-Jet 2%) 2.5 ml UR Q6H PRN PRN Reason: PAIN Loratadine (Claritin) 10 mg PO DAILY [facility] Last Admin: 06/26/18 09:31 Dose: 10 mg Pantoprazole Sodium (Protonix) 40 mg PO QDAC [facility] Last Admin: 06/26/18 06:24 Dose: 40 mg Polyethylene Glycol (Miralax) 17 gm PO DAILY [facility] Last Admin: 06/26/18 09:33 Dose: 17 gm Quetiapine Fumarate (Seroquel) 25 mg PO QPM [facility] Last Admin: 06/25/18 20:47 Dose: 25 mg Quetiapine Fumarate (Seroquel) 25 mg PO QPM PRN PRN Reason: HALLUCINATIONS Quetiapine Fumarate (Seroquel) 25 mg PO Q4H PRN PRN Reason: Anxiety Last Admin: 06/26/18 09:31 Dose: 25 mg Senna (Senokot) 8.6 - 17.2 mg PO DAILY [facility] Last Admin: 06/26/18 09:31 Dose: 8.6 mg Sodium Chloride (Normal Saline Flush 0.9%) 10 ml IVP PRN PRN PRN Reason: NEEDED PER PROVIDER ORDERS Last Admin: 06/24/18 10:25 Dose: 10 ml Sodium Chloride (Normal Saline Flush 0.9%) 10 ml IVP 0100,0900,1700 [facility] Last Admin: 06/26/18 17:17 Dose: Not Given Tamsulosin HCl (Flomax) 0.4 mg PO DAILY [facility] Last Admin: 06/26/18 09:32 Dose: 0.4 mg Timolol Maleate (Timoptic 0.5% Ophth Drops) 1 drops EACHEYE BID [facility] Last Admin: 06/26/18 14:47 Dose: 1 drops Aspirin [Adult Low Dose Aspirin EC] 81 mg PO DAILY 12/01/16 Fexofenadine HCl 180 mg PO DAILY 12/01/16 Finasteride 5 mg PO DAILY 12/01/16 Fluticasone/Salmeterol [Advair 500-50 Diskus] 1 puffs INH BID 12/01/16 Omeprazole 20 mg PO QDAC 12/01/16 Tamsulosin HCl [Flomax] 0.4 mg PO DAILY 12/01/16 Tiotropium [place] [Spiriva] 2 puffs INH DAILY 12/01/16 hydroCHLOROthiazide [Hydrodiuril] 12.5 mg PO DAILY 12/01/16 Cholecalciferol [Vitamin D3] 5,000 units PO DAILY 06/22/18 Latanoprost 0.005% Ophth Drops [Xalatan Ophth Drops] 1 drops EACHEYE QPM 06/22/18 Multivitamin [Theragran] 1 tab PO DAILY 06/22/18 QUEtiapine [SEROquel] 25 mg PO QPM PRN 06/22/18 Timolol 0.5% Ophth Drops [Timoptic 0.5% Ophth Drops] 1 drops EACHEYE BID 06/22/18 Tiotropium [place] [Spiriva] 1 puffs INH QPM 06/22/18 Objective - Vital Signs/Intake & Output Reviewed Vital Signs: Yes Vital Signs: Vital Signs x48h Temp Pulse Resp BP Pulse Ox 06/26/18 15:49 36.5 C 81 20 144/85 H 96 Intake & Output: Intake & Output 06/23/18 06/24/18 06/25/18 06/26/18 23:59 23:59 23:59 23:59 Intake Total 2310 780 1190 270 Output Total 800 1095 1225 300 Balance 1510 -315 -35 -30 - Objective General Appearance: positive: No acute distress, Alert. negative: Lethargic Eyes Bilateral: positive: Normal inspection, PERRL, No lid inflammation, Conjunctivae nml ENT: positive: ENT inspection nml, Pharynx nml, No signs of dehydration. negative: Purulent nasal drainage, Pharyngeal erythema, Oral lesions Neck: positive: Nml inspection, Thyroid nml, No JVD, Trachea midline. negative: Thyromegaly, Lymphadenopathy (R), Lymphadenopathy (L), Stiff neck, Swelling/b ruising, Tracheal deviation Respiratory: positive: Chest non-tender, No respiratory distress, Breath sounds nml. negative: Wheezes, Rales, Rhonchi Cardiovascular: positive: Regular rate & rhythm, No murmur, No gallop. negative: Irregularly irregular, Extrasystoles, Tachycardia, Bradycardia, JVD present, Systolic murmur, Diastolic murmur Peripheral Pulses: 2+ Radial (R), 2+ Radial (L), 2+ Dorsalis pedis (R), 2+ Dorsalis pedis (L) Abdomen: positive: Non-tender, No organomegaly, Nml bowel sounds, No distention. negative: Tenderness, Guarding, Rebound Back: positive: Nml inspection. negative: CVA tenderness (R), CVA tenderness (L) Skin: positive: Color nml, No rash, Warm, Dry. negative: Cyanosis, Diaphoresis, Pallor Extremities: positive: Non-tender, Nml appearance. negative: Calf tenderness, Joint swelling, Daya's sign/cords Neurologic/Psychiatric: positive: Weakness. negative: Sensory loss, Facial droop, Slurred/abnml speech, Depressed mood/affect - Lab Results Fish Bones: 06/25/18 06:42 06/25/18 06:42 ABX Reporting Has patient been on IV antibiotics over the past 48 hours?: Yes Sepsis Event Note (H) - Evaluation Current Stage of Sepsis: Ruled out Possible source of Sepsis: positive: Pulmonary - Sepsis Criteria Sepsis Criteria: Recorded Heart Rate greater than 90 bpm, WBC count greater than 12,000 or less than 4000 Assessment/Plan - Problem List (1) Pneumonia involving left lung Impression: 4/3 pt has 96% sats on 3 liter of o2. pt took 3 liter of O2 at home. Pt's WBC is normal at 7.9 now. pt's lung sound is clear. pt has no SOB, pt has no fever, chill, or cough. change to PO antibiotics Keflex to finish the antibiotics course stable, continue finish antibiotics course (2) Encephalopathy acute 4/3 pt has hx of advanced dementia. nurse report pt did not have sleep on last night. pt did fall sleep easily when I assessed pt at this afternoon again. pt has no focus neurological deficit. PT report pt is not walking well as before. pt is reported to have back pain today order CT of head and lumbar spinal, will followup neur check resoled, and stable, as pt's baseline, continue monitor, and support (3) Alzheimer disease stable, as pt's baseline (4) COPD (chronic obstructive pulmonary disease) stable, as pt's baseline, continue breath treatment, PRN for O2 supplement (5) BPH loc w urin obs/LUTS stable, continue home meds (6) weakness continue PT/OT evaluation and treatment for pt's d/c safety, plan d/c pt on tomorrow with home caregiver available.
--- NOTE | 2018-06-26 16:40 | CT Report ---
Reason: AMS Procedure Date: 06/26/2018 Accession Number: [id number] / [id number] Procedure: CT - HEAD WO CPT Code: FULL RESULT: EXAM: CT HEAD EXAM DATE: 06/26/2018 04:05 PM. CLINICAL HISTORY: Altered mental status. COMPARISON: HEAD W/O 06/21/2018 7:50 PM. TECHNIQUE: Multiaxial CT images were obtained from the foramen magnum to the vertex. Reformats: Sagittal and coronal. IV contrast: None. In accordance with CT protocol optimization, one or more of the following dose reduction techniques were utilized for this exam: automated exposure control, adjustment of mA and/or KV based on patient size, or use of iterative reconstructive technique. FINDINGS: Parenchyma: No intraparenchymal hemorrhage. No evidence of mass, midline shift, or CT findings of acute infarction. Szymanski-white differentiation is distinct. Stable chronic microangiopathic white matter changes are evident. Extraaxial Spaces: Normal for age. No subdural or epidural collections identified. Ventricles: The ventricles and cortical sulci are prominent, consistent with age-related tissue loss. Sinuses and orbits: Opacified inferior mastoid air cells again noted bilaterally, otherwise imaged paranasal sinuses, orbits, and mastoids show no significant abnormality. Bones: No evidence of fracture or calvarial defect. Other: Advanced atherosclerotic calcification noted. IMPRESSION: Stable age-related cortical atrophic changes without evidence of acute intracranial abnormality. RADIA
--- NOTE | 2018-06-26 16:51 | CT Report ---
Reason: back pain Procedure Date: 06/26/2018 Accession Number: [id number] / [id number] Procedure: CT - LUMBAR SPINE WO CPT Code: FULL RESULT: EXAM: CT LUMBAR SPINE WITHOUT CONTRAST EXAM DATE: 06/26/2018 04:07 PM. CLINICAL HISTORY: Back pain. COMPARISONS: None. TECHNIQUE: Thin-section axial images were acquired of the lumbar spine from T12 to S1 without contrast. Post-processing: Coronal and sagittal reformats. Other: None. In accordance with CT protocol optimization, one or more of the following dose reduction techniques were utilized for this exam: automated exposure control, adjustment of mA and/or KV based on patient size, or use of iterative reconstructive technique. FINDINGS: Alignment: No scoliosis or spondylolisthesis. Bones: Five [id number] lumbar vertebral bodies are present. There is diffuse osteopenia which technically limits evaluation for subtle fracture. There is anterior wedging of the T12 vertebral body with less than 20% vertebral body height loss anteriorly. No definite acute fracture seen. No definite suspicious osseous lesion. There are incomplete anterior bridging osteophytes seen spanning T11-T12, T12-L1, L1-L2, and L2-L3. Disk Levels/Facets: T11-T12: Mild endplate degenerative change, Schmorl's node formation, mild loss of disk height, and vacuum disk phenomenon. Bilateral arthritic facet disease. No definite spinal canal stenosis. No definite neural foraminal narrowing. T12-L1: Mild to moderate endplate degenerative change, Schmorl's node formation, mild to moderate loss of disk height, and calcification within the disk space. Slight posterior disk bulge and bilateral arthritic facet disease. No definite spinal canal stenosis. No definite neural foraminal narrowing. L1-L2: Mild endplate degenerative change with mild loss of disk height and vacuum disk phenomenon. Small posterior disk bulge, ligamentum flavum thickening, and arthritic facet disease. Probable mild spinal canal stenosis. Probable mild bilateral neural foraminal narrowing. L2-L3: Mild endplate degenerative change, Schmorl's node formation, mild loss of disk height, and vacuum disk phenomenon. Small posterior disk bulge, ligamentum flavum thickening, prominent epidural fat, and arthritic facet disease. Mild spinal canal stenosis and effacement of the lateral recesses. Mild to moderate bilateral neural foraminal narrowing. L3-L4: Mild endplate degenerative change with mild loss of disk height and calcification within the disk space. Small posterior disk bulge, ligamentum flavum thickening, arthritic facet disease, and prominent epidural fat. Probable moderate spinal canal stenosis. Mild to moderate bilateral neural foraminal narrowing. L4-L5: Mild endplate degenerative change with mild loss of disk height. Small posterior disk bulge, ligamentum flavum thickening, and arthritic facet disease. Mild spinal canal stenosis. Mild bilateral neural foraminal narrowing. L5-S1: Mild endplate degenerative change with mild loss of disk height. Small central to left subarticular disk protrusion. Bilateral arthritic facet disease. Effacement of left lateral recess with potential mass effect on the traversing left S1 nerve root. Moderate bilateral neural foraminal narrowing. Musculature: Fatty atrophy of the posterior spinal musculature. Other: Small to moderate right hiatal hernia. There is a hypodense lesion seen within the right hepatic lobe measuring 24 x 25 mm (series 3, image 12) that likely represents hepatic cyst. Severe aortoiliac atherosclerotic calcifications. Colonic diverticulosis without evidence of diverticulitis. IMPRESSION: 1. Diffuse osteopenia that technically limits evaluation for subtle fracture. 2. There is chronic appearing anterior wedging compression deformity of the T12 vertebral body with less than 20% vertebral body height loss anteriorly. 3. Multilevel degenerative changes. L1-L2: Probable mild spinal canal stenosis. Probable mild bilateral neural foraminal narrowing. L2-L3: Mild spinal canal stenosis and effacement of the lateral recesses. Mild to moderate bilateral neural foraminal narrowing. L3-L4: Probable moderate spinal canal stenosis. Mild to moderate bilateral neural foraminal narrowing. L4-L5: Mild spinal canal stenosis. Mild bilateral neural foraminal narrowing. L5-S1: Effacement of left lateral recess with potential mass effect on the traversing left S1 nerve root. Moderate bilateral neural foraminal narrowing. 4. Small to moderate right hiatal hernia. There is a hypodense lesion seen within the right hepatic lobe measuring 24 x 25 mm (series 3, image 12) that likely represents hepatic cyst. 5. Severe aortoiliac atherosclerotic calcifications. 6. Colonic diverticulosis without evidence of diverticulitis. RADIA
[2018-06-26] MEDS: IPRATROPIUM/ALBUTEROL 3 ML NEB INH PRN (19:46)
[2018-06-26] MEDS: QUEtiapine 25 MG TABLET PO SCH (22:20)
[2018-06-26] MEDS: LATANOPROST 0.005% OPHTH DROPS EACHEYE SCH (22:20)
[2018-06-27] MEDS: cephALEXin 250 MG CAPSULE PO SCH ×4 (05:52→23:43)
[2018-06-27] MEDS: QUEtiapine 25 MG TABLET PO PRN (05:52)
[2018-06-27] MEDS: PANTOPRAZOLE 40 MG TABLET PO SCH (06:12)
[2018-06-27] MEDS: BUDESONIDE 0.5 MG/2 ML NEB INH SCH ×2 (07:20→19:50)
[2018-06-27] MEDS: IPRATROPIUM/ALBUTEROL 3 ML NEB INH PRN (07:20)
[2018-06-27] MEDS: SODIUM CHLORIDE FLUSH 0.9% 10 ML SYRINGE IVP SCH ×2 (07:44→17:14)
[2018-06-27 08:05] LABS: BASOPHILS # (AUTO) 0.1 10^3/uL (0.0-0.1); EOSINOPHILS # (AUTO) 0.2 10^3/uL (0.0-0.7); EOSINOPHILS % (AUTO) 1.9 %; HGB - HEMOGLOBIN 15.2 g/dL (14.0-18.0); LYMPHOCYTES # (AUTO) 1.1 10^3/uL (1.5-3.5); LYMPHOCYTES % (AUTO) 9.9 %; MEAN CORPUSCULAR HEMOGLOBIN 30.5 pg (27.0-31.0); MEAN CORPUSCULAR HGB CONC 34.6 g/dL (32.0-36.0); MEAN CORPUSCULAR VOLUME 88.3 fL (80.0-94.0); MEAN PLATELET VOLUME 7.1 fL (7.4-11.4); MONOCYTES % (AUTO) 9.2 %; NEUTROPHILS # (AUTO) 8.9 10^3/uL (1.5-6.6); PLT - PLATELET COUNT 198 10^3/uL (130-450); RED BLOOD COUNT 4.97 10^6/uL (4.70-6.10); RED CELL DISTRIBUTION WIDTH 14.7 % (12.0-15.0); WHITE BLOOD COUNT 11.4 x10^3/uL (4.8-10.8)
[2018-06-27 08:17] LABS: ALBUMIN 3.7 g/dL (3.2-5.5); ALBUMIN/GLOBULIN RATIO 1.1 (1.0-2.2); BILIRUBIN,TOTAL 1.1 mg/dL (0.2-1.0); CALCIUM 9.2 mg/dL (8.5-10.3); CREATININE 0.8 mg/dL (0.6-1.2)
--- NOTE | 2018-06-27 09:14 | XRAY Report ---
Reason: SOB Procedure Date: 06/27/2018 Accession Number: [id number] / [id number] Procedure: XR - Chest 1 View X-Ray CPT Code: 75224 FULL RESULT: EXAM: CHEST RADIOGRAPHY EXAM DATE: 06/27/2018 08:43 AM. CLINICAL HISTORY: SOB. COMPARISON: 06/21/2018. TECHNIQUE: 1 view. FINDINGS: Lungs/Pleura: Chronic fibrotic change most marked at left base. No focal opacities evident. No pleural effusion. No pneumothorax. Mediastinum: Large heart. Large hiatal hernia. Other: None. IMPRESSION: No acute pulmonary findings. RADIA
[2018-06-27] MEDS: DOCUSATE SODIUM 250 MG CAPSULE PO SCH (09:48)
[2018-06-27] MEDS: FINASTERIDE 5 MG TABLET PO SCH (09:48)
[2018-06-27] MEDS: LORATADINE 10 MG TABLET PO SCH (09:48)
[2018-06-27] MEDS: TAMSULOSIN 0.4 MG CAPSULE PO SCH (09:48)
[2018-06-27] MEDS: SENNA 8.6 MG TABLET PO SCH (09:48)
[2018-06-27] MEDS: ASPIRIN EC 81 MG TABLET PO SCH (09:48)
[2018-06-27] MEDS: POLYETHYLENE GLYCOL 3350 17 GM PACKET PO SCH (09:49)
[2018-06-27] MEDS: TIMOLOL 0.5% OPHTH DROPS EACHEYE SCH ×2 (10:01→21:58)
--- NOTE | 2018-06-27 14:24 | PROVIDER PROGRESS NOTE ---
Subjective - Prog Note Date Prog Note Date: 06/27/18 - Subjective Pt reports feeling: Improved Subjective: clinic pt has improvement today, more active. PT/OT evaluate and treat pt. pt is recommended to SNF. Discussed care plan with pt's family, update the progress, and all image studies with pt's daughter and , answer all their questions and concerns. They agree pt may be d/c to SNF if qualified. Current Medications - Current Medications Current Medications: Active Medications Acetaminophen (Tylenol) 650 mg PO Q4HR PRN PRN Reason: Pain 1 to 4 Last Admin: 06/21/18 23:54 Dose: 650 mg Albuterol/Ipratropium (Duoneb) 3 ml INH Q4HR PRN PRN Reason: Wheezing Last Admin: 06/27/18 07:20 Dose: 3 ml Aspirin (Ecotrin) 81 mg PO DAILY [facility] Last Admin: 06/27/18 09:48 Dose: 81 mg Budesonide (Pulmicort) 0.5 mg INH RTBID [facility] Last Admin: 06/27/18 07:20 Dose: 0.5 mg Cephalexin (Keflex) 250 mg PO Q6HR [facility] Last Admin: 06/27/18 12:11 Dose: 250 mg Docusate Sodium (Colace 250mg Capsule) 250 - 500 mg PO DAILY [facility] Last Admin: 06/27/18 09:48 Dose: Not Given Finasteride (Proscar) 5 mg PO DAILY [facility] Last Admin: 06/27/18 09:48 Dose: 5 mg Latanoprost (Xalatan Ophth Drops) 1 drops EACHEYE QPM [facility] Last Admin: 06/26/18 22:20 Dose: Not Given Lidocaine HCl (Xylocaine Uro-Jet 2%) 2.5 ml UR Q6H PRN PRN Reason: PAIN Loratadine (Claritin) 10 mg PO DAILY [facility] Last Admin: 06/27/18 09:48 Dose: 10 mg Pantoprazole Sodium (Protonix) 40 mg PO QDAC [facility] Last Admin: 06/27/18 06:12 Dose: 40 mg Polyethylene Glycol (Miralax) 17 gm PO DAILY [facility] Last Admin: 06/27/18 09:49 Dose: Not Given Quetiapine Fumarate (Seroquel) 25 mg PO QPM [facility] Last Admin: 06/26/18 22:20 Dose: Not Given Senna (Senokot) 8.6 - 17.2 mg PO DAILY [facility] Last Admin: 06/27/18 09:48 Dose: 8.6 mg Sodium Chloride (Normal Saline Flush 0.9%) 10 ml IVP PRN PRN PRN Reason: NEEDED PER PROVIDER ORDERS Last Admin: 06/24/18 10:25 Dose: 10 ml Sodium Chloride (Normal Saline Flush 0.9%) 10 ml IVP 0100,0900,1700 [facility] Last Admin: 06/27/18 07:44 Dose: Not Given Tamsulosin HCl (Flomax) 0.4 mg PO DAILY [facility] Last Admin: 06/27/18 09:48 Dose: 0.4 mg Timolol Maleate (Timoptic 0.5% Ophth Drops) 1 drops EACHEYE BID [facility] Last Admin: 06/27/18 10:01 Dose: 1 drops Aspirin [Adult Low Dose Aspirin EC] 81 mg PO DAILY 12/01/16 Fexofenadine HCl 180 mg PO DAILY 12/01/16 Finasteride 5 mg PO DAILY 12/01/16 Fluticasone/Salmeterol [Advair 500-50 Diskus] 1 puffs INH BID 12/01/16 Omeprazole 20 mg PO QDAC 12/01/16 Tamsulosin HCl [Flomax] 0.4 mg PO DAILY 12/01/16 Tiotropium [place] [Spiriva] 2 puffs INH DAILY 12/01/16 hydroCHLOROthiazide [Hydrodiuril] 12.5 mg PO DAILY 12/01/16 Cholecalciferol [Vitamin D3] 5,000 units PO DAILY 06/22/18 Latanoprost 0.005% Ophth Drops [Xalatan Ophth Drops] 1 drops EACHEYE QPM 06/22/18 Multivitamin [Theragran] 1 tab PO DAILY 06/22/18 QUEtiapine [SEROquel] 25 mg PO QPM PRN 06/22/18 Timolol 0.5% Ophth Drops [Timoptic 0.5% Ophth Drops] 1 drops EACHEYE BID 06/22/18 Tiotropium [place] [Spiriva] 1 puffs INH QPM 06/22/18 Objective - Vital Signs/Intake & Output Reviewed Vital Signs: Yes Vital Signs: Vital Signs x48h Temp Pulse Pulse Resp BP Pulse Ox 06/27/18 07:43 36.7 C 71 16 135/75 H 96 06/27/18 07:20 68 16 Intake & Output: Intake & Output 06/24/18 06/25/18 06/26/18 06/27/18 23:59 23:59 23:59 23:59 Intake Total 780 1190 320 720 Output Total 1095 1225 300 101 Balance -315 -35 20 619 - Objective General Appearance: positive: No acute distress, Alert. negative: Lethargic Eyes Bilateral: positive: Normal inspection, PERRL, No lid inflammation, Conjunctivae nml ENT: positive: ENT inspection nml, Pharynx nml, No signs of dehydration. negative: Purulent nasal drainage, Pharyngeal erythema, Oral lesions Neck: positive: Nml inspection, Thyroid nml, No JVD, Trachea midline. negative: Thyromegaly, Lymphadenopathy (R), Lymphadenopathy (L), Stiff neck, Swell ing/bruising, Tracheal deviation Respiratory: positive: Chest non-tender, No respiratory distress, Breath sounds nml. negative: Wheezes, Rales, Rhonchi Cardiovascular: positive: Regular rate & rhythm, No murmur, No gallop. negative: Irregularly irregular, Extrasystoles, Tachycardia, Bradycardia, JVD present, Systolic murmur, Diastolic murmur Peripheral Pulses: 2+ Radial (R), 2+ Radial (L), 2+ Dorsalis pedis (R), 2+ Dors johnathan pedis (L) Abdomen: positive: Non-tender, No organomegaly, Nml bowel sounds, No distention. negative: Tenderness, Guarding, Rebound Back: positive: Nml inspection. negative: CVA tenderness (R), CVA tenderness (L) Skin: positive: Color nml, No rash, Warm, Dry. negative: Cyanosis, Diaphoresis, Pallor Extremities: positive: Non-tender, Nml appearance. negative: Calf tenderness, Joint swelling, Daya's sign/cords Neurologic/Psychiatric: negative: Weakness, Sensory loss, Facial droop, Slurred/abnml speech, Depressed mood/affect - Lab Results Fish Bones: 06/27/18 07:51 06/27/18 07:51 Other Labs: Lab Results x24hrs 06/27/18 06/27/18 Range/Units 07:51 07:51 WBC 11.4 H (4.8-10.8) x10^3/uL RBC 4.97 (4.70-6.10) 10^6/uL Hgb 15.2 (14.0-18.0) g/dL Hct 43.9 (42.0-52.0) % MCV 88.3 (80.0-94.0) fL MCH 30.5 (27.0-31.0) pg MCHC 34.6 (32.0-36.0) g/dL RDW 14.7 (12.0-15.0) % Plt Count 198 (130-450) 10^3/uL MPV 7.1 L (7.4-11.4) fL Neut # (Auto) 8.9 H (1.5-6.6) 10^3/uL Lymph # (Auto) 1.1 L (1.5-3.5) 10^3/uL [place] # (Auto) 1.0 (0.0-1.0) 10^3/uL Eos # (Auto) 0.2 (0.0-0.7) 10^3/uL Baso # (Auto) 0.1 (0.0-0.1) 10^3/uL Absolute Nucleated RBC 0.00 x10^3/uL Nucleated RBC % 0.0 /100WBC Sodium 138 (135-145) mmol/L Potassium 3.8 (3.5-5.0) mmol/L Chloride 102 (101-111) mmol/L Carbon Dioxide 26 (21-32) mmol/L Anion Gap 10.0 (6-13) BUN 19 (6-20) mg/dL Creatinine 0.8 (0.6-1.2) mg/dL Estimated GFR (MDRD) 93 (>89) Glucose 131 H (70-100) mg/dL Calcium 9.2 (8.5-10.3) mg/dL Total Bilirubin 1.1 H (0.2-1.0) mg/dL AST 24 (10-42) IU/L ALT 16 (10-60) IU/L Alkaline Phosphatase 63 (42-121) IU/L Total Protein 7.0 (6.7-8.2) g/dL Albumin 3.7 (3.2-5.5) g/dL Globulin 3.3 (2.1-4.2) g/dL Albumin/Globulin Ratio 1.1 (1.0-2.2) ABX Reporting Has patient been on IV antibiotics over the past 48 hours?: Yes Sepsis Event Note (H) - Evaluation Current Stage of Sepsis: Ruled out Possible source of Sepsis: positive: Pulmonary - Sepsis Criteria Sepsis Criteria: Recorded Heart Rate greater than 90 bpm, WBC count greater than 12,000 or less than 4000 Assessment/Plan - Problem List (1) Pneumonia involving left lung Impression: / pt has slight elevate WBC to 11.4, but clinic pt has no cough, no wheezing, lung sound clear, no fever or chill, no SOB. pt did not take steroid CXR reveals unremarkable continue breath treatment PRN continue PO antibiotics to finish the antibiotics course supplement of O2 as needed /3 pt has 96% sats on 3 liter of o2. pt took 3 liter of O2 at home. Pt's WBC is normal at 7.9 now. pt's lung sound is clear. pt has no SOB, pt has no fever, chill, or cough. change to PO antibiotics Keflex to finish the antibiotics course stable, continue finish antibiotics course (2) Encephalopathy acute / pt is better today, pt has more active with nurse, and family, PT/OT. continue neur check 4/3 pt has hx of advanced dementia. nurse report pt did not have sleep on last night. pt did fall sleep easily when I assessed pt at this afternoon again. pt has no focus neurological deficit. PT report pt is not walking well as before. pt is reported to have back pain today order CT of head and lumbar spinal, will followup neur check resoled, and stable, as pt's baseline, continue monitor, and support (3) Alzheimer disease stable, as pt's baseline (4) COPD (chronic obstructive pulmonary disease) stable, as pt's baseline, continue breath treatment, PRN for O2 supplement (5) BPH loc w urin obs/LUTS stable, continue home meds (6) weakness / discuss with pt's family, PT and SW. the plan for pt is d/c to SNF, PT recommend pt to SNF. pt's family, daughter and , agree to be d/c to SNF continue PT/OT evaluation and treatment for pt's d/c safety, plan d/c pt on tomorrow with home caregiver available.
--- NOTE | 2018-06-27 16:55 | CONSULTATION NOTE ---
Palliative Care Follow Up - Referral Referring Provider: ELVA Hunt. Dr Garza is PCP Time of Visit: Micheal 06/27/18. 15:50 - 16:05 Referral setting: Hospitalized patient Referral Reason: Pneumonia / Pal Care - Information Sources Records reviewed: RN notes reviewed, Previous records reviewed History/Review of Systems obtained from: Patient, Family, Nursing, Other (Melter Supervisor) Exam limitations: Clinical condition (Alzheimer's dementia with delirium) - History of Present Illness Update Brief HPI Update: 77-year-old male, frail and thin, has Alzheimer's and is dependent on 24-hour oxygen. He was hospitalized 06/21/18 for pneumonia of left lung. He lives at home with his , Abida, on the property of their only daughter, Jayla and her family. Medical History: Alzheimer's dementia; COPD oxygen dependent 3L day, 5L nighttime; HTN; GERD; BPH; glaucoma; h/o tobacco use disorder; h/o UTIs; h/o pneumonia. Patient's daughter called requesting palliative care support regarding discharge plans and facilities. Palliative Care was able to meet with spouse, Abida, and daughter, Jayla this afternoon. Patient's condition yesterday was such that discharge home was unsafe. PT re-evaluation was performed and discharge to SNF is recommended. Today patient's condition has improved but family reports he is still not back at baseline cognitively and functionally. Etiology likely multifactorial, with seroquel inciting hallucinations, and ongoing infection. WBC had been improving, from high of 17.4 on admission to 7.9 on 06/25, then worsening this mornin.4 at 7:51am. Pt's gait slow and unsure, he is unsteady when standing and ambulating. Confusion, slow processing time, lack of verbal response, impulsively getting out of chair. He has chair alarm. SW has spoken extensively with family and is coordinating [place]. Social History - Living Situation Support System: Patient has been living in a private residence with his , Abida. They lived for 14 years in an independent unit on the property of their only child, daughter Abida, with her and two children, 14 and 12. , Abida, is the sole caregiver for the patient. She has been resistant to bringing in outside caregiver support but understands his condition is such that what is currently required is a higher level of care than she and her daughter can provide. She is agreeable to discharging him to a [place]. Abida, Spouse: [phone] home Jayla, Daughter: [phone] mobile Medications/Allergies - Medications Active Medication List: Active Medications Acetaminophen (Tylenol) 650 mg PO Q4HR PRN PRN Reason: Pain 1 to 4 Last Admin: 06/21/18 23:54 Dose: 650 mg Albuterol/Ipratropium (Duoneb) 3 ml INH Q4HR PRN PRN Reason: Wheezing Last Admin: 06/27/18 07:20 Dose: 3 ml Aspirin (Ecotrin) 81 mg PO DAILY [facility] Last Admin: 06/27/18 09:48 Dose: 81 mg Budesonide (Pulmicort) 0.5 mg INH RTBID [facility] Last Admin: 06/27/18 07:20 Dose: 0.5 mg Cephalexin (Keflex) 250 mg PO Q6HR [facility] Last Admin: 06/27/18 12:11 Dose: 250 mg Docusate Sodium (Colace 250mg Capsule) 250 - 500 mg PO DAILY [facility] Last Admin: 06/27/18 09:48 Dose: Not Given Finasteride (Proscar) 5 mg PO DAILY [facility] Last Admin: 06/27/18 09:48 Dose: 5 mg Latanoprost (Xalatan Ophth Drops) 1 drops EACHEYE QPM [facility] Last Admin: 06/26/18 22:20 Dose: Not Given Lidocaine HCl (Xylocaine Uro-Jet 2%) 2.5 ml UR Q6H PRN PRN Reason: PAIN Loratadine (Claritin) 10 mg PO DAILY [facility] Last Admin: 06/27/18 09:48 Dose: 10 mg Pantoprazole Sodium (Protonix) 40 mg PO QDAC [facility] Last Admin: 06/27/18 06:12 Dose: 40 mg Polyethylene Glycol (Miralax) 17 gm PO DAILY [facility] Last Admin: 06/27/18 09:49 Dose: Not Given Quetiapine Fumarate (Seroquel) 25 mg PO QPM [facility] Last Admin: 06/26/18 22:20 Dose: Not Given Senna (Senokot) 8.6 - 17.2 mg PO DAILY [facility] Last Admin: 06/27/18 09:48 Dose: 8.6 mg Sodium Chloride (Normal Saline Flush 0.9%) 10 ml IVP PRN PRN PRN Reason: NEEDED PER PROVIDER ORDERS Last Admin: 06/24/18 10:25 Dose: 10 ml Sodium Chloride (Normal Saline Flush 0.9%) 10 ml IVP 0100,0900,1700 [facility] Last Admin: 06/27/18 07:44 Dose: Not Given Tamsulosin HCl (Flomax) 0.4 mg PO DAILY [facility] Last Admin: 06/27/18 09:48 Dose: 0.4 mg Timolol Maleate (Timoptic 0.5% Ophth Drops) 1 drops EACHEYE BID [facility] Last Admin: 06/27/18 10:01 Dose: 1 drops Aspirin [Adult Low Dose Aspirin EC] 81 mg PO DAILY 12/01/16 Fexofenadine HCl 180 mg PO DAILY 12/01/16 Finasteride 5 mg PO DAILY 12/01/16 Fluticasone/Salmeterol [Advair 500-50 Diskus] 1 puffs INH BID 12/01/16 Omeprazole 20 mg PO QDAC 12/01/16 Tamsulosin HCl [Flomax] 0.4 mg PO DAILY 12/01/16 Tiotropium [place] [Spiriva] 2 puffs INH DAILY 12/01/16 hydroCHLOROthiazide [Hydrodiuril] 12.5 mg PO DAILY 12/01/16 Cholecalciferol [Vitamin D3] 5,000 units PO DAILY 06/22/18 Latanoprost 0.005% Ophth Drops [Xalatan Ophth Drops] 1 drops EACHEYE QPM 9 Multivitamin [Theragran] 1 tab PO DAILY 06/22/18 QUEtiapine [SEROquel] 25 mg PO QPM PRN 06/22/18 Timolol 0.5% Ophth Drops [Timoptic 0.5% Ophth Drops] 1 drops EACHEYE BID 06/22/18 Tiotropium [place] [Spiriva] 1 puffs INH QPM 06/22/18 - Allergies Allergies/Adverse Reactions: Allergies Allergy/AdvReac Type Severity Reaction Status Date / Time No Known Drug Allergies Allergy Verified 06/21/18 21:42 Review of Systems - Constitutional Constitutional: reports: Weakness - Respiratory Respiratory: reports: Other (24 hour oxygen prior to this admission: 3L daytime, 5L nighttime) - Genitourinary Genitourinary: denies: Incontinence - Musculoskeletal Musculoskeletal: reports: Limited range of motion, Transfer issues (unsteady). denies: Assistive devices (none prior to this hospital admission) - Neurological Neurological: reports: General weakness, Memory problems, Pre-existing deficit, Abnormal gait - Psychiatric Psychiatric: reports: Hallucinations, Aggitation (Improved. Was on Seroquell at home; it's been DC'd during this hospitalization), Behavior disturbances (Improved; initially combative with staff) - Other Findings Other Findings: Limited ROS Physical Exam - Vital Signs Vital Signs: Vital Signs x48h Temp Pulse Resp BP Pulse Ox 06/27/18 16:00 98.1 F 73 16 133/85 H 100 - Physical Exam General Appearance: positive: No acute distress, Cachetic, Other (Cognitively impaired compared to pre-hospitalization per family report; slow/no response to direct questions; blank stare; confusion) ENT: positive: ENT inspection nml Neck: positive: Trachea midline Cardiovascular: positive: Regular rate & rhythm, No murmur Respiratory: positive: Diminished throughout (L Lung). negative: Wheezes, Rales, Rhonchi Skin: positive: Dryness Extremities: positive: No pedal edema Neurologic/Psychiatric: positive: Disoriented to person, Disoriented to place, Disoriented to time, Flat affect Palliative Care - POLST Patient has POLST: No Performance Status: Previous: Carried on conversations, appropriate responses Self aware regarding his memory deficits, complained about forgetting things because of "this Alzheimer's." Ambulatory without assistive devices, balance OK Most ADLs ok: dressed self, fed self, able to draw bath water. Required fine- motor skills help (buttons, etc) Inability to perform IADLs Current: Significant cognitive confusion, slow processing, blank staring at family members and staff Dependent for ADLs Poor balance, very unsteady ambulation, requires standby assist Impulsive Gets up to go to bathroom, forgets that's why he wanted to get up Has lost previous self-awareness and insight into his condition. Lack of decision-making capacity - Palliative Care Discussion: Goals of care meeting with daughter Jayla and spouse Abida. Abida tearful and feeling her life and the patient's life is poor quality, that what he's going through "isn't life" Abida thinks about why God is allowing this to happen. ELVA introduced Palliative Care Truck Spotter service for spiritual and emotional support, when and if she t hinks that may be of benefit. Family is in agreement that prolongation of life isn't the goal, comfort and relief of suffering is. just wants to know what is going to happen, what to expect with his physical and mental condition in the future. Lengthy discussion re prognosis, likely trajectory of disease, likely acute events being respiratory infections or falls. Discussion and education re SNFs, LTC, ALFs, memory care, caregiving. Also introduced and provided education on Hospice. Provided supportive listening and validation for caregiver role and CGr self- care. Spouse and have lived here 14 years, they came from [place]. She regrets now that she hasn't developed friendships here, believes she is over-dependent on her daughter and son-in-law, who are her only support network. Daughter Jayla says that she herself has a support network, which includes her and her friendships. Jayla has provided "respite" for her mother about twice a week. Abida uses that time to get groceries or run errands, then comes right back. Abida admits she doesn't take time for herself. Abida is also in "sticker shock" about caregivers and assisted living/memory care costs, concerned about the finances once patient will discharge from SNF. Encouraged her to speak with the SW services of hospital and SNF. Jayla and Abida understand [facility] will be able to provide services [place] residential environment he is in. Results - Lab Results Fish Bones: 06/27/18 07:51 06/27/18 07:51 Lab and Imaging Results: Lab Results x24hrs 06/27/18 06/27/18 Range/Units 07:51 07:51 WBC 11.4 H (4.8-10.8) x10^3/uL RBC 4.97 (4.70-6.10) 10^6/uL Hgb 15.2 (14.0-18.0) g/dL Hct 43.9 (42.0-52.0) % MCV 88.3 (80.0-94.0) fL MCH 30.5 (27.0-31.0) pg MCHC 34.6 (32.0-36.0) g/dL RDW 14.7 (12.0-15.0) % Plt Count 198 (130-450) 10^3/uL MPV 7.1 L (7.4-11.4) fL Neut # (Auto) 8.9 H (1.5-6.6) 10^3/uL Lymph # (Auto) 1.1 L (1.5-3.5) 10^3/uL [place] # (Auto) 1.0 (0.0-1.0) 10^3/uL Eos # (Auto) 0.2 (0.0-0.7) 10^3/uL Baso # (Auto) 0.1 (0.0-0.1) 10^3/uL Absolute Nucleated RBC 0.00 x10^3/uL Nucleated RBC % 0.0 /100WBC Sodium 138 (135-145) mmol/L Potassium 3.8 (3.5-5.0) mmol/L Chloride 102 (101-111) mmol/L Carbon Dioxide 26 (21-32) mmol/L Anion Gap 10.0 (6-13) BUN 19 (6-20) mg/dL Creatinine 0.8 (0.6-1.2) mg/dL Estimated GFR (MDRD) 93 (>89) Glucose 131 H (70-100) mg/dL Calcium 9.2 (8.5-10.3) mg/dL Total Bilirubin 1.1 H (0.2-1.0) mg/dL AST 24 (10-42) IU/L ALT 16 (10-60) IU/L Alkaline Phosphatase 63 (42-121) IU/L Total Protein 7.0 (6.7-8.2) g/dL Albumin 3.7 (3.2-5.5) g/dL Globulin 3.3 (2.1-4.2) g/dL Albumin/Globulin Ratio 1.1 (1.0-2.2) Impression and Recommendations - Palliative Care Impression: 77-year-old male, frail and thin, has Alzheimer's and is dependent on 24-hour oxygen, hospitalized 06/21/18 for pneumonia of left lung. Discharge plan [place] be [place]; ERNESTINA is in process of coordinating with SNFs and family. Palliative Care will provide support and monitoring when patient returns to [place] after discharge from SNF. Recommendations/Counseling Done: Pneumonia: WBC this morning showed an increase to 11.4, two days ago it was 7.9. Patient remains on continuous oxygen and IV abx. General weakness: New PT evaluation recommends discharge to SNF. SWer is coordinating with [place] facilities and family. Dementia with behaviors: Stabilized. He was on Seroquel at home; it was DC'd in hospital due to hallucinations. Function and cognition are significantly impaired from previous baseline. Advance Care Planning: Family's goals are focused on returning patient to previous funcationality and returning home. At this point it is unclear what level of ongoing caregiving he will need post-SNF. When pt is ready to return to [facility], Palliative Care will work with family and provide support and education re caregiving options. There is no signed POLST currently; family's goals are quality of life, not prolongation of life. Time Spent: 55 minutes were spent with more than 50% of the time spent on education, counseling, providing anticipatory guidance to the family, and coordination of care with nursing and SW.
[2018-06-27] MEDS: LATANOPROST 0.005% OPHTH DROPS EACHEYE SCH (21:57)
[2018-06-27] MEDS: QUEtiapine 25 MG TABLET PO SCH (22:02)
[2018-06-28] MEDS: SODIUM CHLORIDE FLUSH 0.9% 10 ML SYRINGE IVP SCH ×2 (05:05→09:05)
[2018-06-28 05:15] LABS: BASOPHILS % (AUTO) 0.8 %; HGB - HEMOGLOBIN 14.9 g/dL (14.0-18.0)
[2018-06-28 05:21] LABS: ALBUMIN 3.6 g/dL (3.2-5.5); ALBUMIN/GLOBULIN RATIO 1.1 (1.0-2.2); BILIRUBIN,TOTAL 1.1 mg/dL (0.2-1.0); CALCIUM 9.2 mg/dL (8.5-10.3); CREATININE 0.8 mg/dL (0.6-1.2); TOTAL PROTEIN 6.9 g/dL (6.7-8.2)
[2018-06-28 05:23] LABS: LYMPHOCYTES % (AUTO) 14.8 %; MEAN CORPUSCULAR HEMOGLOBIN 30.7 pg (27.0-31.0); MEAN CORPUSCULAR HGB CONC 33.5 g/dL (32.0-36.0); MEAN CORPUSCULAR VOLUME 91.7 fL (80.0-94.0); MEAN PLATELET VOLUME 7.6 fL (7.4-11.4); MONOCYTES % (AUTO) 7.8 %; NEUTROPHILS % (AUTO) 73.6 %; PLT - PLATELET COUNT 196 10^3/uL (130-450); RED BLOOD COUNT 4.86 10^6/uL (4.70-6.10); RED CELL DISTRIBUTION WIDTH 15.2 % (12.0-15.0); WHITE BLOOD COUNT 9.3 x10^3/uL (4.8-10.8)
[2018-06-28 05:27] LABS: ABNORMAL LYMPHS % (MANUAL) 0 %
[2018-06-28] MEDS: cephALEXin 250 MG CAPSULE PO SCH ×2 (05:41→12:51)
[2018-06-28 06:00] LABS: BAND NEUTROPHILS % (MANUAL) 2 %; DIFFERENTIAL COMMENT MANUAL DIFFERENTIAL; LYMPHOCYTES # (MANUAL) 2.4 10^3/uL (1.5-3.5); LYMPHOCYTES % (MANUAL) 26 %; MONOCYTES # (MANUAL) 0.7 10^3/uL (0.0-1.0); NEUTROPHILS # (MANUAL) 6.1 10^3/uL (1.5-6.6); NEUTROPHILS % (MANUAL) 64 %; PLATELET ESTIMATE, MANUAL NORMAL (130-450,000) (NORMAL); RBC MORPHOLOGY (MULTIPLE) NORMAL APPEARANCE (NORMAL)
[2018-06-28] MEDS: PANTOPRAZOLE 40 MG TABLET PO SCH (06:31)
[2018-06-28] MEDS: BUDESONIDE 0.5 MG/2 ML NEB INH SCH (07:22)
[2018-06-28] MEDS: IPRATROPIUM/ALBUTEROL 3 ML NEB INH PRN (07:22)
[2018-06-28] MEDS: DOCUSATE SODIUM 250 MG CAPSULE PO SCH ×2 (08:52→09:03)
[2018-06-28] MEDS: POLYETHYLENE GLYCOL 3350 17 GM PACKET PO SCH (09:02)
[2018-06-28] MEDS: LORATADINE 10 MG TABLET PO SCH (09:03)
[2018-06-28] MEDS: TAMSULOSIN 0.4 MG CAPSULE PO SCH (09:03)
[2018-06-28] MEDS: FINASTERIDE 5 MG TABLET PO SCH (09:03)
[2018-06-28] MEDS: SENNA 8.6 MG TABLET PO SCH (09:04)
[2018-06-28] MEDS: ASPIRIN EC 81 MG TABLET PO SCH (09:05)
[2018-06-28] MEDS: TIMOLOL 0.5% OPHTH DROPS EACHEYE SCH (09:07)
[2018-06-28 14:01] VITALS: BP 134/89
--- NOTE | 2018-06-28 14:06 | Discharge Plan ---
"Discharge Plan for SNF / [facility] - Discharge Plan And Transition Orders Disposition: 03 SNF DC/Xfer Condition: Poor Allergies and Adverse Reactions: Allergies Allergy/AdvReac Type Severity Reaction Status Date / Time No Known Drug Allergies Allergy Verified 06/21/18 21:42 - SNF / [facility] Transition Orders Admit to (Facility): [facility] Under the care of (Name): medical provider of [facility] Discharge Diagnosis: pneumonia, encephalopathy acute, Alzheimer disease, COPD, BPH, weakness Medicare Certification Statement: I certify that Post Hospital shelter care is medically necessary on a continuing basis for any of the conditions for which she/he is receiving care during hospitalization. Notify PCP of admission and forward orders to primary provider for signature. Weight on admission and: Daily Call PCP immediately if weight increases by: 2 kg Other Notification Orders: Call PCP immediately if patient develops dyspnea, chest pain/tightness or edema. House Bowel Program: Yes Additional Bowel Program Orders: If no BM after 2 days, nurse may give M.O.M. 30ml PO PRN and/or ducolax Supp 1 TX and/or [place] 250mg P.O., and/or senna 1-2 tabs PO. On day 3 nurse may give repeat above order until residents constipation is resolved. Annual Influenza Vaccine (between Nov 24 and June 23): Yes Two-step PPD per [facility] [id number] or approved exception documents: Yes Treatments & Other Orders: pt may followup medical provider of [facility] when pt is arrival to the facility. Pt may continue PT/OT Oxygen Orders: 3 liter of O2 Medication Orders: PLEASE REFER TO THE DISCHARGE MEDICATION LIST. Insulin Orders?: No - Medications New Prescriptions: cephALEXin [Keflex] 250 mg PO Q6HR #20 capsule Saccharomyces Boulardii [Florastor] 250 mg PO DAILY #5 capsule - Diet Type: Geriatric Texture: Regular Liquids: Thin May have monthly special meal: Yes - Therapies | Activity Therapy: Evaluation | Treat if indicated: PT, OT, Swallowing / ST Rehabilitation Potential: Maximize functional status Activity: Activity as Tolerated Additional Instructions: You may followup medical provider of [facility] when you are arrival to the facility. You were found to have pneumonia. You were treated with antibiotics. Keflex is prescribed for continue the antibiotics course, continue PT/OT"
--- NOTE | 2018-06-28 14:42 | DISCHARGE SUMMARY ---
Discharge Summary Discharge Date: 06/28/18 Discharging Provider: ROSS Primary Care Provider: Dr. Sheets Condition at Discharge: Poor Discharge Disposition: SNF DC/Xfer Discharge Facility Name: [facility] - DIAGNOSES Admission Diagnoses: (1) Pneumonia (2) Altered mental status (3) COPD (chronic obstructive pulmonary disease) (4) Alzheimer disease (5) Glaucoma (6) GERD (gastroesophageal reflux disease) Discharge Diagnoses with Status of Each Condition: 1) Pneumonia (2) Altered mental status (3) COPD (chronic obstructive pulmonary disease) (4) Alzheimer disease (5) Glaucoma (6) GERD (gastroesophageal reflux disease) - HPI History of Present Illness: refer from Dr. Blake's HPI on 06/21 as the following: Patient is a 77 y/o male with Hx of Alzheimer's who was brought into the ED by family because he was suddenly very weak today, unable to stand on his own or walk. He was also more confused. Normally he recognizes family and can carry out a conversation just fine. He is also able to feed himself at baseline, though his coordination is declining. He is on 3-5L of Oxygen via nasal canula at home. In the ED he was found to have a WBC of 17 and chest xray suggested infiltrates. As a result he is being admitted for further treatment. At the time of my exam he was resting comfortably. He has a chronic cough, productive of white-aye sputum. This history was provided entirely by family. He is not very communicative. - HOSPITAL COURSE Hospital Course: 1) Pneumonia pt has 98% sat on 3 liter of O2. pt is home O2 dependent. pt's WBC is normal, no fever, chill, cough. pt is prescribed Keflex to continue the antibiotics course. (2) Altered mental status stable. pt 's report pt take seroquel QPM daily, and she request pt has Seroquel QPM daily, not PRN. (3) COPD (chronic obstructive pulmonary disease) stable (4) Alzheimer disease stable (5) Glaucoma stable, followup home regimen (6) GERD (gastroesophageal reflux disease) stable (7) weakness PT/OT recommend pt to SNF. pt is d/c to [facility] - ALLERGIES Allergies/Adverse Reactions: Allergies Allergy/AdvReac Type Severity Reaction Status Date / Time No Known Drug Allergies Allergy Verified 06/21/18 21:42 - MEDICATIONS Home Medications: Ambulatory Orders Medication Instructions Recorded Confirmed Aspirin [Adult Low Dose Aspirin EC] 81 mg PO DAILY 12/01/16 06/22/18 Fexofenadine HCl 180 mg PO DAILY 12/01/16 06/22/18 Finasteride 5 mg PO DAILY 12/01/16 06/22/18 Fluticasone/Salmeterol [Advair 1 puffs INH BID 12/01/16 06/22/18 500-50 Diskus] Omeprazole 20 mg PO QDAC 12/01/16 06/22/18 Tamsulosin HCl [Flomax] 0.4 mg PO DAILY 12/01/16 06/22/18 Tiotropium [place] [Spiriva] 2 puffs INH DAILY 12/01/16 06/22/18 hydroCHLOROthiazide [Hydrodiuril] 12.5 mg PO DAILY 12/01/16 06/22/18 Cholecalciferol [Vitamin D3] 5,000 units PO DAILY 06/22/18 06/22/18 Latanoprost 0.005% Ophth Drops 1 drops EACHEYE QPM 06/22/18 06/22/18 [Xalatan Ophth Drops] Multivitamin [Theragran] 1 tab PO DAILY 06/22/18 06/22/18 Timolol 0.5% Ophth Drops [Timoptic 1 drops EACHEYE BID 06/22/18 06/22/18 0.5% Ophth Drops] Tiotropium [place] [Spiriva] 1 puffs INH QPM 06/22/18 06/22/18 Saccharomyces Boulardii [Florastor] 250 mg PO DAILY #5 capsule 06/26/18 cephALEXin [Keflex] 250 mg PO Q6HR #20 capsule 06/26/18 QUEtiapine [SEROquel] 25 mg PO QPM #5 /08/1106/22/18 - PHYSICAL EXAM AT DISCHARGE General Appearance: positive: No acute distress, Alert. negative: Lethargic Eyes Bilateral: positive: Normal inspection, PERRL, No lid inflammation, Conjunctivae nml ENT: positive: ENT inspection nml, Pharynx nml, No signs of dehydration. negative: Purulent nasal drainage, Pharyngeal erythema, Oral lesions Neck: positive: Thyroid nml, No JVD, Trachea midline. negative: Thyromegaly, Lymphadenopathy (R), Lymphadenopathy (L), Stiff neck, Swelling/bruising, Tracheal deviation Respiratory: positive: Chest non-tender, No respiratory distress, Breath sounds nml. negative: Wheezes, Rales, Rhonchi Cardiovascular: positive: Regular rate & rhythm, No murmur, No gallop. negative: Irregularly irregular, Extrasystoles, Tachycardia, Bradycardia, JVD present, Systolic murmur, Diastolic murmur Peripheral Pulses: positive: 2+ Abdomen: positive: Non-tender, No organomegaly, Nml bowel sounds, No distention. negative: Tenderness, Guarding, Rebound Back: positive: Nml inspection. negative: CVA tenderness (R), CVA tenderness (L) Skin: positive: Color nml, No rash, Warm, Dry. negative: Cyanosis, Diaphoresis, Pallor Extremities: positive: Non-tender, Nml appearance. negative: Calf tenderness, Joint swelling, Daya's sign/cords Neurologic/Psychiatric: positive: Sensation nml. negative: Weakness, Sensory loss, Facial droop, Slurred/abnml speech, Depressed mood/affect - LABS Result Diagrams: 06/28/18 04:35 06/28/18 04:35 - SEPSIS Current Stage of Sepsis: Ruled out Possible source of Sepsis: Pulmonary Sepsis Criteria: Recorded Heart Rate greater than 90 bpm, WBC count greater than 12,000 or less than 4000 - FOLLOW UP Follow Up: You may followup medical provider of [facility] when you are arrival to the facility. You were found to have pneumonia. You were treated with antibiotics. Keflex is prescribed for continue the antibiotics course, continue PT/OT - TIME SPENT Time Spent in Discharge (Minutes): 55
== END 2018-06-28 14:45 | DRG 194 ==
LOC: ED 17:58 → MS3 21:44
PROVIDERS: ADMIT Internal Medicine; ATTEND Nurse Practitioner Gerontology
DX: J18.9 Pneumonia, unspecified organism (principal); R09.02 Hypoxemia; J18.1 Lobar pneumonia, unspecified organism; G93.40 Encephalopathy, unspecified; F02.81 Dementia in other diseases classified elsewhere, unspecified severity, with behavioral disturbance; F02.80 Dementia in other diseases classified elsewhere, unspecified severity, without behavioral disturbance, psychotic disturbance, mood disturbance, and anxiety; N40.0 Benign prostatic hyperplasia without lower urinary tract symptoms; N13.8 Other obstructive and reflux uropathy; I10 Essential (primary) hypertension; J44.9 Chronic obstructive pulmonary disease, unspecified; Z87.891 Personal history of nicotine dependence; R41.82 Altered mental status, unspecified; K21.9 Gastro-esophageal reflux disease without esophagitis; H54.7 Unspecified visual loss; Z79.82 Long term (current) use of aspirin; H40.9 Unspecified glaucoma; Z66 Do not resuscitate; Z99.81 Dependence on supplemental oxygen; Z51.5 Encounter for palliative care; G30.9 Alzheimer's disease, unspecified; N40.1 Benign prostatic hyperplasia with lower urinary tract symptoms
CPT/HCPCS: 36415; 70450; 71045; 72131; 80048; 80053; 81003; 83605; 83690; 83735; 83880; 85025; 92526; 92610; 93005; 94640; 96365; 96375; 97116; 97162; 97165; 97530; 99221; 99231; 99284; A9270; J2060; J7626; 81001; 87086; 99285

== ENCOUNTER 2018-07-01 13:00 | Outpatient (CLI) | payer MEDICARE, BC ==
--- NOTE | 2018-07-01 15:30 | CONSULTATION NOTE ---
Palliative Care Follow Up - Referral Referring Provider: Dr Sheets Time of Visit: 07/01/2018. Referral setting: Home Referral Reason: Debility - Information Sources History/Review of Systems obtained from: Patient, Family Exam limitations: Clinical condition (Advancing dementia; confusion) - History of Present Illness Update Brief HPI Update: Thank you, Dr. Sheets, for asking the palliative care consult service to be involved in the care of your patient. I am asked to provide support regarding a recent decline in functional status, symptom management, and goals of care. [facility] to [facility] for Home Health PT, OT, and Health Aid Patient was recently discharged to [facility] on 06/28/18 after one week of hospitalization for acute respiratory exacerbation secondary to pneumonia and Advanced COPD. Family moved him from the facility back home due to poor tolerance and increased confusion. Patient is still not back to his previous baseline prior to hospitalization from 06/21/18 - 06/28/18. He would benefit from Home Physical Therapy for evaluation and treatment to increase his strength and safety for ambulation. He would benefit from Home Occupational Therapy for evaluation and treatment related in increased weakness and new difficulty in feeding himself and increased cognitive decline, and assessment of living quarters. He would benefit from Home Health aid for help with personal care. I recommend home PT, OT and health aid for this patient. 77-year-old male, frail and thin, has Alzheimer's and is dependent on 24-hour oxygen. Hospitalized 06/21/18 - 06/28/18 for pneumonia of left lung. He was discharged to [facility], but his family brought him home the next day because of his high level of confusion and they felt he "was lost" and wasn't adjusting to being in the SNF, he didn't understand what he was doing there. The staff agreed with the family that he wasn't adjusting there. So they brought him home where he lives with his , Abida, on the property of their daughter, Jayla, and her family. Medical History: Alzheimer's dementia; COPD oxygen dependent 3L day, 5L nighttim e; HTN; GERD; BPH; glaucoma; h/o tobacco use disorder; h/o UTIs; h/o pneumonia. Patient was discharged to [facility] on Sunday, and family took him out of [facility] and brought him home on Sunday. Today's visit is on Sunday afternoon, and his and daughter both note he is doing better since returning home. His confusion is less, though to me it appears about the same as it was in the hospital. He is unable to answer most questions, appears confused or unsure, and looks toward his daughter for assistance. He is much surer on his feet than in the hospital, where he was very unsteady. He gets up from the couch without difficulty, and walks slowly but without wobbling. The patient and his share a bed which is very tall; the patient gets into it without problem. He does prefer baths, and their tub has a high wall, not safe for him to step over. Their walk-in shower would be more appropriate, though it too has a step up. There is a built-in seat in the shower. Social History - Living Situation Living arrangement: At home Living Situation: With spouse/s.o. Support System: Patient has been living in a private residence with his , Abida. They lived for 14 years in an independent unit on the property of their only child, daughter Abida, with her and two children, 14 and 12. , Abida, is the sole caregiver for the patient. At this time they have no outside caregiving support. They are interested in having Home Health PT, OT for strengthening and increasing his mobility. They would like bath aid for help with hygiene. Abida, Spouse: [phone] home Jayla, Daughter: [phone] mobile Medications/Allergies - Medications Home Medications: Ambulatory Orders Medication Instructions Recorded Confirmed Aspirin [Adult Low Dose Aspirin EC] 81 mg PO DAILY 12/01/16 07/01/18 Fexofenadine HCl 180 mg PO DAILY 12/01/16 07/01/18 Finasteride 5 mg PO DAILY 12/01/16 07/01/18 Fluticasone/Salmeterol [Advair 1 puffs INH BID 12/01/16 07/01/18 500-50 Diskus] Omeprazole 20 mg PO QDAC 12/01/16 07/01/18 Tamsulosin HCl [Flomax] 0.4 mg PO DAILY 12/01/16 07/01/18 hydroCHLOROthiazide [Hydrodiuril] 12.5 mg PO DAILY 12/01/16 07/01/18 Cholecalciferol [Vitamin D3] 5,000 units PO DAILY 06/22/18 07/01/18 Latanoprost 0.005% Ophth Drops 1 drops EACHEYE QPM 06/22/18 07/01/18 [Xalatan Ophth Drops] Multivitamin [Theragran] 1 tab PO DAILY 06/22/18 07/01/18 Timolol 0.5% Ophth Drops [Timoptic 1 drops EACHEYE BID 06/22/18 07/01/18 0.5% Ophth Drops] Tiotropium [place] [Spiriva] 1 puffs INH QPM 06/22/18 07/01/18 Saccharomyces Boulardii [Florastor] 250 mg PO DAILY #5 capsule 06/26/18 07/01/18 cephALEXin [Keflex] 250 mg PO Q6HR #20 capsule 06/26/18 07/01/18 QUEtiapine [SEROquel] 25 mg PO QPM #5 06/28/18 07/01/18 - Allergies Allergies/Adverse Reactions: Allergies Allergy/AdvReac Type Severity Reaction Status Date / Time No Known Drug Allergies Allergy Verified 06/21/18 21:42 Review of Systems - Constitutional Constitutional: reports: Fatigue, Weakness, Weight loss (134.2 lbs on 06/21/18 (61kg, BMI 18.8). Previous weight in ED recorded 74.8kg / 164.7 lbs / BMI 23 in 2014 - 2016, a 30-lb weight loss over 4 years.) - Ears, Nose & Throat Ears, Nose & Throat: reports: Hearing loss - Cardiovascular Cardiovascular: reports: Decr. exercise tolerance. denies: Chest pain - Respiratory Respiratory: reports: Cough (chronic) - Gastrointestinal Gastrointestinal: reports: Other (low BMI 18.8) - Genitourinary Genitourinary: denies: Incontinence - Musculoskeletal Musculoskeletal: reports: Stiffness. denies: Assistive devices, Transfer issues - Integumentary Integumentary: reports: Dryness, Pigment changes (dorsal aspect of hands) - Neurological Neurological: reports: General weakness, Memory problems - Endocrine Endocrine: reports: Intolerance to cold Physical Exam - Vital Signs Temperature: 96.1 F Pulse Rate: 80 O2 Saturation: 99 (3L oxygen) Blood Pressure: 131/74 (wrist cuff) - Physical Exam General Appearance: positive: No acute distress, Alert Eyes Bilateral: positive: Normal inspection ENT: positive: No signs of dehydration Neck: positive: Trachea midline Cardiovascular: positive: Regular rate & rhythm Respiratory: positive: Chest non-tender, No respiratory distress, Diminished throughout, Rhonchi (expiratory) Skin: positive: Bruising (hemosiderin staining back of hands) Extremities: positive: No pedal edema Neurologic/Psychiatric: positive: Disoriented to time, Flat affect Palliative Care - POLST Patient has POLST: No Performance Status: ambulatory, steadier gait in his own house continuous oxygen, 3L daytime, 5L nighttime confusion improved since hospitalization still weak, family would like PT for strength, mobility he is uncertain/unsteady going up and down the front porch steps [place] - Palliative Care Discussion: Family brought him home from SNF after only one day there because he appeared lost and confused, not understanding why he was there. He was to have done rehabilitation there, and they would like to proceed with rehabilitation at home. They note he is hesitant and unsteady on the front porch steps. They would also like an OT safety evaluation of the premises. Patient doesn't have a POLST; will discuss at the follow up visit. Impression and Recommendations - Palliative Care Impression: 77-year-old male, frail and thin, has Alzheimer's and is dependent on 24-hour oxygen, hospitalized at [facility] 06/21/18 - 06/28/18 for pneumonia of left lung. He was initially DC'd to SNF for rehab, but family quickly decided to bring him home due to his confusion and feeling "lost" at the SNF. Patient would benefit from Home Health PT, OT for strengthening and mobility, and bath aid for help with hygiene. Patient and family will benefit from ongoing Palliative Care monitoring and support at home. Recommendations/Counseling Done: Pneumonia: Resolving. Now on 5-day regimen of oral cephalexin 250mg QID. Also has probiotics and recommended yogurt, both to be given while he's taking oral abx and for at least one week afterward. COPD exacerbation: Resolving. On his regular oxygen levels of 3L daytime, 5L nighttime. Continue Adviar, Spiriva inhalers. General weakness: Patient would benefit from Home Physical Therapy for evaluation and treatment to increase his strength and safety for ambulation. He would benefit from Home Occupational Therapy for evaluation and treatment related in increased weakness and new difficulty in feeding himself and increased cognitive decline, and assessment of living quarters. He would benefit from Home Health aid for help with personal care. I recommend Home Health PT, OT and health aid for bathing aid for this patient. Dementia with behaviors: Stabilized. He is back on Seroquel 25mg nightly at home,which was DC'd in hospital due to hallucinations. Function and cognition not back at baseline, but improved since hospitalization. Advance Care Planning: Family's goals are focused on hopefully restoring patient to his previous functional baseline and they would like Home Health therapy. At this point, his spouse is handling his caregiving needs, and monitoring is needed to determine what level of ongoing caregiving he will require. There is no signed POLST; family's goals are quality of life, not prolongation of life. Palliative care is referring patient to Home Health for PT, OT, bath aid. Palliative Care will follow up at next visit on goals of care, POLST, caregiving needs. Follow up in 2-3 weeks and as needed. Time Spent: 40 minutes were spent with more than 50% of the time spent on education, counseling, providing anticipatory guidance, and coordination of care.
== END 2018-07-01 13:01 | disposition home or self-care (01) ==
LOC: PC 13:00
PROVIDERS: ATTEND Nurse Practitioner
DX: Z51.5 Encounter for palliative care (principal); G30.9 Alzheimer's disease, unspecified; F02.81 Dementia in other diseases classified elsewhere, unspecified severity, with behavioral disturbance; Z99.81 Dependence on supplemental oxygen; J44.9 Chronic obstructive pulmonary disease, unspecified; R53.1 Weakness; H40.9 Unspecified glaucoma; H91.90 Unspecified hearing loss, unspecified ear; I10 Essential (primary) hypertension; K21.9 Gastro-esophageal reflux disease without esophagitis; N40.0 Benign prostatic hyperplasia without lower urinary tract symptoms; Z87.891 Personal history of nicotine dependence; Z87.440 Personal history of urinary (tract) infections; Z87.01 Personal history of pneumonia (recurrent); Z79.82 Long term (current) use of aspirin; Z79.51 Long term (current) use of inhaled steroids
CPT/HCPCS: 99349

== ENCOUNTER 2018-08-01 10:04 | Inpatient (IN) | payer MEDICARE, BC ==
--- NOTE | 2018-08-01 10:54 | XRAY Report ---
Reason: sepsis screening, fever, weakness Procedure Date: 08/01/2018 Accession Number: [id number] / [id number] Procedure: XR - Chest 2 View X-Ray CPT Code: 19551 FULL RESULT: EXAM: CHEST RADIOGRAPHY EXAM DATE: 08/01/2018 10:40 AM. CLINICAL HISTORY: Sepsis screening, fever, weakness. COMPARISON: CHEST 1 VIEW 06/27/2018 8:43 AM. TECHNIQUE: 2 views. FINDINGS: The examination is limited by patient positioning. Lungs/Pleura: There are new airspace opacities at the left lung concerning for acute airspace disease. No sizable pleural effusion or pneumothorax. Mediastinum: The aorta is markedly tortuous and calcified and there is a moderate to large hiatal hernia. Other: None. IMPRESSION: New left lower lung airspace disease. RADIA
[2018-08-01 11:14] LABS: BASOPHILS % (AUTO) 0.6 %; EOSINOPHILS % (AUTO) 0.2 %; HGB - HEMOGLOBIN 14.8 g/dL (14.0-18.0); LYMPHOCYTES % (AUTO) 7.3 %; MEAN CORPUSCULAR HEMOGLOBIN 29.8 pg (27.0-31.0); MEAN CORPUSCULAR HGB CONC 33.6 g/dL (32.0-36.0); MEAN CORPUSCULAR VOLUME 88.7 fL (80.0-94.0); NEUTROPHILS % (AUTO) 82.9 %; PLT - PLATELET COUNT 210 10^3/uL (130-450); RED BLOOD COUNT 4.96 10^6/uL (4.70-6.10); WHITE BLOOD COUNT 16.9 x10^3/uL (4.8-10.8)
[2018-08-01 11:18] LABS: INR 1.2 (0.8-1.2); PT - PROTHROMBIN TIME 13.1 secs (9.9-12.6)
[2018-08-01 11:23] LABS: BILIRUBIN,URINE NEGATIVE (NEGATIVE); GLUCOSE, URINE (UA) NEGATIVE (NEGATIVE); KETONES,URINE (UA) NEGATIVE (NEGATIVE); LEUKOCYTE ESTERASE, URINE TRACE (NEGATIVE); NITRITE,URINE NEGATIVE (NEGATIVE); OCCULT BLOOD,URINE NEGATIVE (NEGATIVE); PH,URINE 7.5 PH (5.0-7.5); PROTEIN,URINE NEGATIVE (NEGATIVE); UROBILINOGEN,URINE 4 E.U./dL (NORMAL)
[2018-08-01] MEDS ORDERED: SODIUM CHLORIDE 0.9% 1,000 ML IV ONE (11:23)
[2018-08-01] MEDS ORDERED: cefTRIAXone 1 GM in SODIUM CHLORIDE 0.9% MINIBAG 100 ML IV STA (11:24)
[2018-08-01 11:25] LABS: ALBUMIN 3.8 g/dL (3.2-5.5); BILIRUBIN,TOTAL 1.3 mg/dL (0.2-1.0); CALCIUM 9.3 mg/dL (8.5-10.3); CREATININE 0.8 mg/dL (0.6-1.2); PARTIAL THROMBOPLASTIN TIME 31.4 secs (24.9-33.3); TOTAL PROTEIN 7.5 g/dL (6.7-8.2)
[2018-08-01 11:26] LABS: CLARITY,URINE CLEAR (CLEAR)
--- NOTE | 2018-08-01 11:27 | ED Physician Documentation ---
History of Present Illness - Stated complaint Stated Complaint: MALE /SIDE PX - Chief complaint Chief Complaint: General - History obtained from History obtained from: Family - History of Present Illness Timing: Last night - Additonal information Additional information: 77-year-old male with advanced dementia and COPD has developed increased urination frequency throughout the night and weakness. His indicates that last night he tried to get up to go to the bathroom at least 8 times and he progressively became more and more weak. He is not able to help himself in and out of bed. He has a history of COPD and was most recently admitted to the hospital for pneumonia about 1 month ago. Review of Systems Constitutional: reports: Fever, Chills, Fatigue Eyes: denies: Decreased vision Ears: denies: Ear pain Nose: denies: Rhinorrhea / runny nose, Congestion Throat: denies: Sore throat Cardiac: denies: Chest pain / pressure, Palpitations Respiratory: reports: Cough GI: denies: Vomiting, Diarrhea : reports: Dysuria, Frequency, Incontinent PD PAST MEDICAL HISTORY - Past Medical History Cardiovascular: Hypertension Respiratory: COPD Neuro: Alzhiemer's, Dementia Endocrine/Autoimmune: None GI: GERD : Benign prostate hypertrophy, Other HEENT: Chronic vision loss Psych: None Musculoskeletal: None Derm: None - Past Surgical History Past Surgical History: Yes General: Other HEENT: Cataracts - Present Medications Home Medications: Ambulatory Orders Medication Instructions Recorded Confirmed Aspirin [Adult Low Dose Aspirin EC] 81 mg PO DAILY 12/01/16 07/01/18 Fexofenadine HCl 180 mg PO DAILY 12/01/16 07/01/18 Finasteride 5 mg PO DAILY 12/01/16 07/01/18 Fluticasone/Salmeterol [Advair 1 puffs INH BID 12/01/16 07/01/18 500-50 Diskus] Omeprazole 20 mg PO QDAC 12/01/16 07/01/18 Tamsulosin HCl [Flomax] 0.4 mg PO DAILY 12/01/16 07/01/18 hydroCHLOROthiazide [Hydrodiuril] 12.5 mg PO DAILY 12/01/16 07/01/18 Cholecalciferol [Vitamin D3] 5,000 units PO DAILY 06/22/18 07/01/18 Latanoprost 0.005% Ophth Drops 1 drops EACHEYE QPM 06/22/18 07/01/18 [Xalatan Ophth Drops] Multivitamin [Theragran] 1 tab PO DAILY 06/22/18 07/01/18 Timolol 0.5% Ophth Drops [Timoptic 1 drops EACHEYE BID 06/22/18 07/01/18 0.5% Ophth Drops] Tiotropium [place] [Spiriva] 1 puffs INH QPM 06/22/18 07/01/18 Saccharomyces Boulardii [Florastor] 250 mg PO DAILY #5 capsule 06/26/18 07/01/18 cephALEXin [Keflex] 250 mg PO Q6HR #20 capsule 06/26/18 07/01/18 QUEtiapine [SEROquel] 25 mg PO QPM #5 06/28/18 07/01/18 - Allergies Allergies/Adverse Reactions: Allergies Allergy/AdvReac Type Severity Reaction Status Date / Time No Known Drug Allergies Allergy Verified 08/01/18 10:16 - Social History Does the pt smoke?: No Smoking Status: Former smoker Does the pt drink ETOH?: No Does the pt have substance abuse?: No - Immunizations Immunizations are current?: Yes - POLST Patient has POLST: No PD ED PE NORMAL - Vitals Vital signs reviewed: Yes (hypertensive ) - General General: No acute distress, Well developed/nourished, Other ("washed out" appearing 77y/o male) - HEENT HEENT: Atraumatic, PERRL, EOMI - Neck Neck: Supple, no meningeal sign - Cardiac Cardiac: RRR, No murmur - Respiratory Respiratory: No respiratory distress, Other (diminished breath sounds with left basilar rhonchi. There is some tendeness to the lower rib cage bilat) - Abdomen Abdomen: Soft, Non tender - Back Back: No CVA TTP, No spinal TTP - Derm Derm: Normal color, No rash - Extremities Extremities: No deformity, No edema - Neuro Neuro: No motor deficit, No sensory deficit, Normal speech Eye Opening: Spontaneous Motor: Obeys Commands Verbal: Confused GCS Score: 14 - Psych Psych: Normal mood, Normal affect Results - Vitals Vitals: Vital Signs - 24 hr 08/01/18 08/01/18 08/01/18 10:11 12:27 13:00 Temperature 37.1 C Heart Rate 94 88 91 Heart Rate [ Sitting] Heart Rate [ Standing] Heart Rate [ Supine] Respiratory 20 18 22 Rate Blood Pressure 147/91 H 156/100 H 149/108 H Blood Pressure [Sitting] Blood Pressure [Standing] Blood Pressure [Supine] O2 Saturation 98 96 95 08/01/18 08/01/18 14:58 15:00 Temperature Heart Rate 91 Heart Rate [ 91 Sitting] Heart Rate [ 0 L Standing] Heart Rate [ 87 Supine] Respiratory 20 Rate Blood Pressure 160/102 H Blood Pressure 160/102 H [Sitting] Blood Pressure 0/0 L [Standing] Blood Pressure 173/104 H [Supine] O2 Saturation 97 Oxygen O2 Source [With Activity] Nasal cannula O2 Source Nasal cannula Oxygen Flow Rate 3 - Labs Labs: Laboratory Tests 08/01/18 08/01/18 08/01/18 10:56 11:09 11:09 WBC 16.9 H RBC 4.96 Hgb 14.8 Hct 44.0 MCV 88.7 MCH 29.8 MCHC 33.6 RDW 15.0 Plt Count 210 MPV 7.0 L Neut # (Auto) Not Reportable Lymph # (Auto) Not Reportable [place] # (Auto) Not Reportable Eos # (Auto) Not Reportable Baso # (Auto) Not Reportable Absolute Nucleated RBC Not Reportable Total Counted 100 Band Neuts % (Manual) 4 Reactive Lymphs % (Man) 8 Abnorm Lymph % (Manual) 0 Myelocytes % 1 H Nucleated RBC % Not Reportable Neutrophils # (Manual) 13.9 H Lymphocytes # (Manual) 2.0 Monocytes # (Manual) 0.8 Eosinophils # (Manual) 0.0 Basophils # (Manual) 0.0 Differential Comment MANUAL DIFFERENTIAL Manual Slide Review Indicated RBC Morph Micro Appear 1+ ANISOCYTOSIS PT 13.1 H INR 1.2 APTT 31.4 Sodium Potassium Chloride Carbon Dioxide Anion Gap BUN Creatinine Estimated GFR (MDRD) Glucose Lactic Acid Calcium Total Bilirubin AST ALT Alkaline Phosphatase Total Protein Albumin Globulin Albumin/Globulin Ratio Lipase Urine Color DARK YELLOW Urine Clarity CLEAR Urine pH 7.5 Ur Specific [place] 1.020 Urine Protein NEGATIVE Urine Glucose (UA) NEGATIVE Urine Ketones NEGATIVE Urine Occult Blood NEGATIVE Urine Nitrite NEGATIVE Urine Bilirubin NEGATIVE Urine Urobilinogen 4 H Ur Leukocyte Esterase TRACE H Urine RBC 0-5 Urine WBC 11-25 H Ur Squamous Epith Cells RARE Squamous Urine Bacteria Rare Ur Microscopic Review INDICATED Urine Culture Comments INDICATED 08/01/18 08/01/18 11:09 11:09 WBC RBC Hgb Hct MCV MCH MCHC RDW Plt Count MPV Neut # (Auto) Lymph # (Auto) [place] # (Auto) Eos # (Auto) Baso # (Auto) Absolute Nucleated RBC Total Counted Band Neuts % (Manual) Reactive Lymphs % (Man) Abnorm Lymph % (Manual) Myelocytes % Nucleated RBC % Neutrophils # (Manual) Lymphocytes # (Manual) Monocytes # (Manual) Eosinophils # (Manual) Basophils # (Manual) Differential Comment Manual Slide Review RBC Morph Micro Appear PT INR APTT Sodium 138 Potassium 3.8 Chloride 97 L Carbon Dioxide 30 Anion Gap 11.0 BUN 17 Creatinine 0.8 Estimated GFR (MDRD) 93 Glucose 126 H Lactic Acid 1.1 Calcium 9.3 Total Bilirubin 1.3 H AST 20 ALT 16 Alkaline Phosphatase 76 Total Protein 7.5 Albumin 3.8 Globulin 3.7 Albumin/Globulin Ratio 1.0 Lipase 23 Urine Color Urine Clarity Urine pH Ur Specific [place] Urine Protein Urine Glucose (UA) Urine Ketones Urine Occult Blood Urine Nitrite Urine Bilirubin Urine Urobilinogen Ur Leukocyte Esterase Urine RBC Urine WBC Ur Squamous Epith Cells Urine Bacteria Ur Microscopic Review Urine Culture Comments - Rads (name of study) chest Radiology: Prelim report reviewed (IMPRESSION: New left lower lung airspace diseas), EMP read indepedently, See rad report Procedures - IVC sono (time) 1100 Bedside IVC sono: IVC measures (cm) (1.17), IVC collapsed c insp (cm) (complete), Dehydration (est 1-2 liter deficit) PD MEDICAL DECISION MAKING - ED course Complexity details: reviewed old records, reviewed results, re-evaluated patient, considered differential, d/w patient, d/w family ED course: 77-year-old male with advanced dementia and COPD has had a recent admission to the hospital for pneumonia he fever and chills and urinary urgency and frequency and incontinence last night. He is weak and unable to get in and out of bed to go to the bathroom. IV is begun he is given intravenous saline and Rocephin. Dr. Lozoya is consulted in the case and requests we provide saline and follow up with orthostatic blood pressure measurements with anticipation of a trial at home. The remainder of saline is infused but the patient remains weak. He is weak enough that he is unable to participate in standing for orthostatic blood pressures. He is not safe for discharge to home. Departure - Departure Disposition: 66 [facility] DC/Xfer Clinical Impression: General weakness Pneumonia Qualifiers: Pneumonia type: due to unspecified organism Laterality: left Lung location: lower lobe of lung Qualified Code(s): J18.1 - Lobar pneumonia, unspecified organism Urinary tract infection Qualifiers: Urinary tract infection type: acute cystitis Hematuria presence: without hematuria Qualified Code(s): N30.00 - Acute cystitis without hematuria
[2018-08-01 11:52] LABS: BACTERIA,URINE Rare /HPF (None Seen); RBC,URINE 0-5 /HPF (0-5); SQUAMOUS EPITHELIAL CELL,UR RARE Squamous (<= Few)
[2018-08-01 12:11] LABS: ABNORMAL LYMPHS % (MANUAL) 0 %
[2018-08-01 12:14] LABS: BAND NEUTROPHILS % (MANUAL) 4 %; DIFFERENTIAL COMMENT MANUAL DIFFERENTIAL; LYMPHOCYTES % (MANUAL) 4 %; MONOCYTES # (MANUAL) 0.8 10^3/uL (0.0-1.0); MYELOCYTES % (MANUAL) 1 %; NEUTROPHILS # (MANUAL) 13.9 10^3/uL (1.5-6.6); NEUTROPHILS % (MANUAL) 78 %; RBC MORPHOLOGY (MULTIPLE) 1+ ANISOCYTOSIS (NORMAL)
[2018-08-01] MEDS ORDERED: QUEtiapine 25 MG TABLET PO STA (13:03)
[2018-08-01] MEDS ORDERED: SODIUM CHLORIDE FLUSH 0.9% 10 ML SYRINGE IVP PRN (16:04)
--- NOTE | 2018-08-01 16:16 | HISTORY & PHYSICAL EXAMINATION ---
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 from [facility] w/ many years ago / now with advanced dementia. He lives with who per recent palliative are note feels it is her obligation to care for him, andhad been resistant to help. (daughters house is right next door, so she is available to help) . He has been doing well at home for past month, following a 1 week admit 06/21-06/28 for possible pneumonia. felt he was at his baseline til just last night when he was resteless with urinary frequency. Normally he gets up to urinate 2-3 x/ nite, but last night he got up like 8 x. She states he did void each time. Not clear he had any complaints of dysuria. Has known BPH and is on Flomax, and Finasteride. He was increasingly weak this morning. Temperature 99.7, no rigors, maybe chills. Has chronic cough from COPD unchanged, Has had no increased oxygen requirement., is on 3L NC chronically (used to be on ""3-5L" but was told to stick to 3L. C/o RUQ pain, no exacerrbation w/ eating, no belching. CXR suggestive of Left lower lung airspace diseae but as noted no change in respiratory status. UA concentrated 1.020, Trace LE, 11-25 WBC, rare bacteria. WBC 16.9 H/H 14.8/44, 210 k no bands. IN the ED he received dose of ceftriaxone 1 gram Has had mild urinary retention in past, never needed catheter. reports pt has been getting HHPT and HHOT via palliative care with a meg almendarez RN visit. He was discharged from to [facility] , but toook him home after 1 day "didnt like it". VEry similar admit 1 week admission 06/21-06/28 to [facility] 06/28/18 HOWEVER, family moved him from [facility] back home due to poor tolerance/increased confusion; HHPT, Home OT recommended 07/01 on that presentation ; abrupt weakness, unable to stand, increased confusion, Leukocytosis, ? infiltrate (was not noted on repeat Xray just a few days later. Recent chest X rays CXR today New air space opaities Left lung, suggestive of acute airspace disease Impression new Left lowr lung airspace diseaee Moderate to large hiatal hernia CXR; 06/27 Chronic fibrotic change most marked left base, no focal opacities CXR 06/21 vague nodular density/ patchy density mid left midlung/ Possible patchy infection, ateletasis or assymetric edema From Palliative Care consult; early june Chey Hemmen/ Palliative Care consult met w/ Abida on June 25 and before discharge 06/28 "Abida was resistant to the idea of more support, did not want to be involved in Caregiver Support Groups/trainings, feels it is her duty to be caring for him, Often refuses help, even from daughter. "i'll take careof it" Not interested in placement or memory unit" (but since then Palliative Care is involved) History - Past Medical History Cardiovascular: reports: Hypertension Respiratory: reports: COPD (on hme o2 3-5 liters), Emphysema (emphysema per prior CT imaging) Neuro: reports: Alzhiemer's (Normally feeds self, helps dress/bathe him, he tries to use Razor. ), Dementia Endocrine/Autoimmune: reports: None GI: reports: GERD : reports: Benign prostate hypertrophy, Other HEENT: reports: Chronic vision loss Psych: reports: None Musculoskeletal: reports: None Derm: reports: None MRSA Hx?: No - Past Surgical History General: reports: Other HEENT: reports: Cataracts - POLST Patient has POLST: No Meds/Allgy - Home Medications Home Medications: Ambulatory Orders Medication Instructions Recorded Confirmed Aspirin [Adult Low Dose Aspirin EC] 81 mg PO DAILY 12/01/16 08/01/18 Fexofenadine HCl 180 mg PO DAILY 12/01/16 08/01/18 Finasteride 5 mg PO DAILY 12/01/16 08/01/18 Fluticasone/Salmeterol [Advair 1 puffs INH BID 12/01/16 08/01/18 500-50 Diskus] Omeprazole 20 mg PO QDAC 12/01/16 08/01/18 Tamsulosin HCl [Flomax] 0.4 mg PO DAILY 12/01/16 08/01/18 hydroCHLOROthiazide [Hydrodiuril] 12.5 mg PO DAILY 12/01/16 08/01/18 Cholecalciferol [Vitamin D3] 5,000 units PO DAILY 06/22/18 08/01/18 Latanoprost 0.005% Ophth Drops 1 drops EACHEYE QPM 06/22/18 08/01/18 [Xalatan Ophth Drops] Multivitamin [Theragran] 1 tab PO DAILY 06/22/18 08/01/18 Timolol 0.5% Ophth Drops [Timoptic 1 drops EACHEYE BID 06/22/18 08/01/18 0.5% Ophth Drops] Tiotropium [place] [Spiriva] 1 puffs INH QPM 06/22/18 07/01/18 QUEtiapine [SEROquel] 25 mg PO BID 08/01/18 08/01/18 - Allergies Allergies/Adverse Reactions: Allergies Allergy/AdvReac Type Severity Reaction Status Date / Time No Known Drug Allergies Allergy Verified 08/01/18 10:16 Review of Systems - Constitutional Constitutional: reports: Fever (low grade at home 99.7), Weight loss (unsure how much wt loss, but per is losing wt), Other (ROS obtained from , States he snacks from "snack table "athome frequently) - Eyes Eyes: reports: Other (gets eye drops for glaucoma) - Cardiovascular Cariovascular: denies: Chest pain, Syncope - Respiratory Respiratory: reports: Cough. denies: Hemoptysis, Orthopnea, SOB at rest - Gastrointestinal Gastrointestinal: reports: Constipation (she gave him dulcolax 2 days ago). denies: Diarrhea - Genitourinary Genitourinary: reports: Frequency (as per HPI), Other (has had urinary retention in past). denies: Dysuria, Hematuria - Musculoskeletal Musculoskeletal: reports: Muscle weakness - Integumentary Integumentary: reports: Dryness (reports dry flakiy skin, no edema), Other - Neurological Neurological: reports: Memory problems (sometimes he says "youre not my " but mostly knows her) Exam - Vital Signs Reviewed Vital Signs: Yes Vital Signs: Vital Signs x48h Temp Pulse Pulse Pulse Pulse Resp BP 08/01/18 15:00 91 20 160/102 H 08/01/18 14:58 91 0 L 87 08/01/18 13:00 91 22 149/108 H 08/01/18 12:27 88 18 156/100 H 08/01/18 10:11 37.1 C 94 20 147/91 H BP BP BP Pulse Ox 08/01/18 15:00 97 08/01/18 14:58 160/102 H 0/0 L 173/104 H 08/01/18 13:00 95 08/01/18 12:27 96 08/01/18 10:11 98 - Physical Exam General Appearance: positive: Anxious, Other (very restless elderly confused gentleman lying sideways in bed, "need to pee") Eyes Bilateral: positive: PERRL, EOMI (eyes track evenly), Other (sunken orbits) ENT: positive: Dry mucous membranes, Other (upper dentures) Neck: positive: Other (did not assess carotids , talking,). negative: Stiff neck Respiratory: positive: No respiratory distress (wearing 3L NC 94% on 3L, occas loose cough ( denies different), no evident SOB, no accessory muscle use, distant breath sounds, not cooperating w/ request to take deep breath, no wheezing, no rhonchi, no appreciable crackles), Other (prominent ribs, no lesions R rib cge) Cardiovascular: positive: Regular rate & rhythm (distant heart sounds). negative: Systolic murmur Peripheral Pulses: positive: 2+ Abdomen: positive: No organomegaly, Nml bowel sounds, No distention (slightly protuberant, not really distended), Other (protuberant abd, + BS, nontender, Adult pad, 700cc on strait cath). negative: Tenderness, Guarding, Rebound Rectal: positive: Other (not assessed) Back: negative: CVA tenderness (R), CVA tenderness (L) Skin: positive: Warm, Dry, Other (dry flaky skin). negative: Skin rash Extremities: negative: Pedal edema Neurologic/Psychiatric: positive: Disoriented to person (oriented to , doesnt respond to whrere he is (or where from), symmetric face, no droop, able to swallow, Bilat Extremiteis full strengh, muscle wasting bilat LE's, reflexes not assessed) Conclusion/Plan - Problem List (1) Urinary tract infection Conclusion/Plan: UA not entirely convincing ; mild pyuria, nominal bacturia, but + symptoms and urinary retention will treat as UTI, continue ceftriaxone In and out straight cath now for retention and agitation>>>700cc f/u blood cultures f/u urine cx's ; deescalate once cx results recheck WBC in am cont Flomax/ proscar for BPH ,hopefully can avoid indwelling (Urinary retention and volume depletion could cause acute delerium and leukocyt osis respectively) Qualifiers: Urinary tract infection type: acute cystitis Hematuria presence: without hematuria Qualified Code(s): N30.00 - Acute cystitis without hematuria (2) Dementia Conclusion/Plan: Dementia with owning per , and also geriatric frailty syndrome Loosing weight, increased hospital presentations, had been resistant to placement, or outside help Did recently accept HHPT/OT via Palliative Care Plan Contact palliative care Sunday to let them know he is here for ongoing discussion Hopefully acute delerium improeves Delerium likely multifactorial w/ retention, ? UTI >>Check if really getting bid seroqel (vs bid PRN so as not to overdo it w/ seroquel) PT eval/ ongoing PT (3) Frailty syndrome in geriatric patient Conclusion/Plan: above under Dementia Admitted for similar presentation just 1 month ago/ family pulled him from [facility] 1 day after admit -as above ongoing discussion w/palliative care re: goals of care, ? repeat admissions (4) Metabolic alkalosis Conclusion/Plan: suspect r/t some volume depletion and possibly C02 retainer/ compensated No indication for ABG Reeval C02 on labs tomorrow after volume repletion (got 1 liter in ED) trying to get new IV in to continue IVF (5) BPH (benign prostatic hyperplasia) Conclusion/Plan: BPH with urinary retention on Flomax, and Finasteride 400 cc on bladder scan on admit/ and agitated in and out straight cath, hopefully dont need indwelling (has pulled out IV) (6) Leukocytosis Conclusion/Plan: No bandemia could be related to volume depletion, as noted, urine not grossly convincing for UTI (treating as such) with the mild pyuria above, treating as UTI Reeval in am (will reflect Ceftriaxone and IVF) Clincial picture not c/w pneumonia, if change in resp status after volume repletion, consider recheck Xray/ 2 view to better delineate if infiltrate vs chornic chnge Qualifiers: Leukocytosis type: unspecified Qualified Code(s): D72.829 - Elevated white blood cell count, unspecified (7) DNR (do not resuscitate) Conclusion/Plan: confirmed w/ (8) Hypertension Conclusion/Plan: Elevated blood pressure on presentation including i ED 140's- 160's / 100 Resolved after bladder decompresion 700cc Risk/benefit of antihypertensive/acute BP lowering in this elderly man w/ dementia, frailty syndrome Holding HCTZ due to volume depletio consider d/c HCTZ on d/c (no associated hypoNa, or HypoK (9) COPD (chronic obstructive pulmonary disease) Conclusion/Plan: stable, no exacerbation prn duoneb on Advair at home , pulmicort here continue home 02 3L (for Sa02 92% On spiriva at home too (w/ dementia is he even using inhalers appropriately any more? consider RT eval if able to use MDI's appropraiately (10) Glaucoma Conclusion/Plan: continue home drops latanoprost, and timolol - Lab Results Lab results reviewed: Yes Fish Bones: 08/01/18 11:09 08/01/18 11:09 Other Lab Results: Urinalysis today 1.020, Trace LE, 11-25 WBC, RARE bactereia - Diagnostic Imaging Results Diagnostic Imaging Results: positive: Critical result Diagnostic Imaging Results Comments: CXR today New air space opaities Left lung, suggstive of acute airspace disease Impression rufus Left lowr lung airspace diseaee Moderate to large hiatal hernia CXR; 4/4 Chronic fibrotic change most marked left base, no focal opacities CXR 06/21 vague nodular density/ patchy density mid left midlung/ Possible patchy infection, ateletasis or assymetric edema 04/08/16 Chest X ray; Mild bibasilar atelectasis or infiltrate Chest cT 10/2015; Extensive emphysema on Chest CT.
[2018-08-01] MEDS: SODIUM CHLORIDE 0.9% 1,000 ML IV SCH (20:30)
[2018-08-01] MEDS: SODIUM CHLORIDE FLUSH 0.9% 10 ML SYRINGE IVP SCH ×2 (20:31→23:24)
[2018-08-01] MEDS ORDERED: QUEtiapine 25 MG TABLET PO SCH (21:00)
[2018-08-01] MEDS: TIMOLOL 0.5% OPHTH DROPS EACHEYE SCH (22:39)
[2018-08-01] MEDS: LATANOPROST 0.005% OPHTH DROPS EACHEYE SCH (22:39)
[2018-08-01] MEDS: QUEtiapine 25 MG TABLET PO SCH (22:39)
[2018-08-02 05:38] LABS: HGB - HEMOGLOBIN 14.7 g/dL (14.0-18.0); MEAN CORPUSCULAR HGB CONC 33.9 g/dL (32.0-36.0); MEAN CORPUSCULAR VOLUME 88.7 fL (80.0-94.0); MEAN PLATELET VOLUME 7.5 fL (7.4-11.4); RED BLOOD COUNT 4.9 10^6/uL (4.70-6.10); RED CELL DISTRIBUTION WIDTH 15.1 % (12.0-15.0); WHITE BLOOD COUNT 20.6 x10^3/uL (4.8-10.8)
[2018-08-02 05:52] LABS: CALCIUM 8.7 mg/dL (8.5-10.3); CREATININE 0.8 mg/dL (0.6-1.2)
[2018-08-02] MEDS: PANTOPRAZOLE 40 MG TABLET PO SCH (06:22)
[2018-08-02] MEDS: ASPIRIN EC 81 MG TABLET PO SCH (08:29)
[2018-08-02] MEDS: FINASTERIDE 5 MG TABLET PO SCH (08:29)
[2018-08-02] MEDS: TAMSULOSIN 0.4 MG CAPSULE PO SCH (08:29)
[2018-08-02] MEDS: QUEtiapine 25 MG TABLET PO SCH ×2 (08:29→21:50)
[2018-08-02] MEDS: POLYETHYLENE GLYCOL 3350 17 GM PACKET PO SCH (08:29)
[2018-08-02] MEDS: MULTIVITAMIN TABLET PO SCH (08:29)
[2018-08-02] MEDS: ENOXAPARIN 40 MG/0.4 ML SYRINGE SUBQ SCH (08:30)
[2018-08-02] MEDS: SODIUM CHLORIDE FLUSH 0.9% 10 ML SYRINGE IVP SCH ×2 (08:31→21:33)
[2018-08-02] MEDS: TIMOLOL 0.5% OPHTH DROPS EACHEYE SCH ×2 (08:31→21:50)
[2018-08-02] MEDS ORDERED: cefTRIAXone 1 GM in SODIUM CHLORIDE 0.9% MINIBAG 100 ML IV SCH (09:00)
[2018-08-02] MEDS ORDERED: LIDOCAINE 2% URO-JET 5 ML SYRINGE UR PRN (09:00)
[2018-08-02] MEDS: IPRATROPIUM/ALBUTEROL 3 ML NEB INH PRN ×3 (10:28→19:20)
[2018-08-02] MEDS: BUDESONIDE 0.5 MG/2 ML NEB INH SCH ×2 (10:29→19:19)
[2018-08-02] MEDS: SODIUM CHLORIDE 0.9% 1,000 ML IV SCH (11:16)
[2018-08-02 11:33] LABS: BASOPHILS # (AUTO) 0.1 10^3/uL (0.0-0.1); BASOPHILS % (AUTO) 0.4 %; HGB - HEMOGLOBIN 14.5 g/dL (14.0-18.0); LYMPHOCYTES # (AUTO) 0.9 10^3/uL (1.5-3.5); LYMPHOCYTES % (AUTO) 4.3 %; MEAN CORPUSCULAR HEMOGLOBIN 29.8 pg (27.0-31.0); MEAN CORPUSCULAR HGB CONC 33.7 g/dL (32.0-36.0); MEAN CORPUSCULAR VOLUME 88.3 fL (80.0-94.0); MEAN PLATELET VOLUME 7.2 fL (7.4-11.4); MONOCYTES # (AUTO) 1.5 10^3/uL (0.0-1.0); MONOCYTES % (AUTO) 7.3 %; NEUTROPHILS # (AUTO) 18.5 10^3/uL (1.5-6.6); PLT - PLATELET COUNT 199 10^3/uL (130-450); RED BLOOD COUNT 4.88 10^6/uL (4.70-6.10); RED CELL DISTRIBUTION WIDTH 15.4 % (12.0-15.0); WHITE BLOOD COUNT 21.1 x10^3/uL (4.8-10.8)
[2018-08-02 11:35] LABS: VBG PCO2 35.5 mmHg (41-51); VBG PH 7.429 (7.31-7.41); VBG PO2 41.2 mmHg (25-47); VBG TOTAL CO2 24.1 mmol/L (24-29)
[2018-08-02 11:36] LABS: VBG BASE EXCESS -0.7 mmol/L (-2 - +2)
[2018-08-02 11:52] LABS: PLATELET ESTIMATE, MANUAL NORMAL (130-450,000) (NORMAL); PLATELET MORPHOLOGY NORMAL APPEARANCE (NORMAL)
[2018-08-02 11:53] LABS: RBC MORPHOLOGY (MULTIPLE) NORMAL APPEARANCE (NORMAL)
--- NOTE | 2018-08-02 13:12 | PROVIDER PROGRESS NOTE ---
Subjective - Prog Note Date Prog Note Date: 08/02/18 Prog Note Time: 08:00 - Subjective Pt reports feeling: Worse Subjective: Anjum is very agitated today and his states that his tongue is not positioned correctly in his mouth. She also notes that he has more "gurgling" while breathing that his new today. She has concerns that he is more sedated today, although has not had any sedatives. He appears uncomfortable, restless, and will not follow instructions on exam. Current Medications - Current Medications Current Medications: Active Medications: Acetaminophen (Tylenol) 650 mg PO Q6HR PRN Albuterol/Ipratropium (Duoneb) 3 ml INH Q4HR PRN Aspirin (Ecotrin) 81 mg PO DAILY [facility] Budesonide (Pulmicort) 0.5 mg INH RTBID [facility] Enoxaparin Sodium (Lovenox) 40 mg SUBQ DAILY [facility] Finasteride (Proscar) 5 mg PO DAILY [facility] Sodium Chloride (Normal Saline 0.9%) 1,000 mls @ 75 mls/hr IV .[id number] [facility] Piperacillin Sod/Tazobactam (Sod 3.375 gm/ Sodium Chloride) 100 mls @ 25 mls/hr IV Q8H [facility] Lactulose (Enulose) 10 gm PO DAILY [facility] Latanoprost (Xalatan Ophth Drops) 1 drops EACHEYE QPM [facility] Lidocaine HCl (Xylocaine Uro-Jet 2%) 2.5 ml UR Q6H PRN Multivitamins (Theragran) 1 tab PO DAILY [facility] Pantoprazole Sodium (Protonix) 40 mg PO QDAC [facility] Polyethylene Glycol (Miralax) 17 gm PO DAILY [facility] Quetiapine Fumarate (Seroquel) 25 mg PO BID [facility] Tamsulosin HCl (Flomax) 0.4 mg PO DAILY [facility] Timolol Maleate (Timoptic 0.5% Ophth Drops) 1 drops EACHEYE BID [facility] HOME meds: Aspirin [Adult Low Dose Aspirin EC] 81 mg PO DAILY 12/01/16 Fexofenadine HCl 180 mg PO DAILY 12/01/16 Finasteride 5 mg PO DAILY 12/01/16 Fluticasone/Salmeterol [Advair 500-50 Diskus] 1 puffs INH BID 12/01/16 Omeprazole 20 mg PO QDAC 09/08/17 Tamsulosin HCl [Flomax] 0.4 mg PO DAILY 12/01/16 hydroCHLOROthiazide [Hydrodiuril] 12.5 mg PO DAILY 12/01/16 Cholecalciferol [Vitamin D3] 5,000 units PO DAILY 06/22/18 Latanoprost 0.005% Ophth Drops [Xalatan Ophth Drops] 1 drops EACHEYE QPM 06/22/18 Multivitamin [Theragran] 1 tab PO DAILY 06/22/18 Timolol 0.5% Ophth Drops [Timoptic 0.5% Ophth Drops] 1 drops EACHEYE BID 06/22/18 Tiotropium [place] [Spiriva] 1 puffs INH QPM 06/22/18 QUEtiapine [SEROquel] 25 mg PO BID 08/01/18 Objective - Vital Signs/Intake & Output Reviewed Vital Signs: Yes Vital Signs: Vital Signs x48h Temp Pulse Pulse Resp BP Pulse Ox 08/02/18 12:48 36.8 C 97 22 118/82 H 95 08/02/18 10:28 98 26 H 08/02/18 08:15 37.1 C 96 24 163/97 H 92 08/02/18 06:29 133/85 H 08/02/18 05:57 37.3 C 98 24 95 Intake & Output: Intake & Output 07/30/18 07/31/18 08/01/18 08/02/18 23:59 23:59 23:59 23:59 Intake Total 1240 1220 Output Total 1400 2100 Balance -160 -880 - Objective General Appearance: positive: Alert, Moderate distress, Anxious Eyes Bilateral: positive: PERRL Eyes: OU Lid inflammation ENT: positive: Pharyngeal erythema, Dry mucous membranes Neck: positive: Thyroid nml, No JVD, Lymphadenopathy (R), Lymphadenopathy (L) Respiratory: positive: Chest non-tender, No respiratory distress, Rhonchi Cardiovascular: positive: No gallop, Systolic murmur, Decreased pulse(s) Peripheral Pulses: 1+ Radial (R), 1+ Radial (L) Abdomen: positive: Nml bowel sounds, Tenderness, Guarding Back: positive: Nml inspection Skin: positive: No rash, Warm, Dry, Other (bronze toned skin) Extremities: positive: Non-tender, Full ROM, Joint swelling, Other (contractures d/t advanced dementia) Neurologic/Psychiatric: positive: Disoriented to person, Disoriented to place, Disoriented to time, Weakness, Sensory loss, Slurred/abnml speech (slow speech, poor response), Depressed mood/affect, Other Reflexes: Bicep (R): 2+, Bicep (L): 2+ - Lab Results Fish Bones: 08/02/18 11:24 08/02/18 05:13 Other Labs: Lab Results x24hrs 08/02/18 08/02/18 08/02/18 Range/Units 11:24 11:24 11:24 WBC (4.8-10.8) x10^3/uL RBC (4.70-6.10) 10^6/uL Hgb (14.0-18.0) g/dL Hct (42.0-52.0) % MCV (80.0-94.0) fL MCH (27.0-31.0) pg MCHC (32.0-36.0) g/dL RDW (12.0-15.0) % Plt Count (130-450) 10^3/uL MPV (7.4-11.4) fL Neut # (Auto) (1.5-6.6) 10^3/uL Lymph # (Auto) (1.5-3.5) 10^3/uL [place] # (Auto) (0.0-1.0) 10^3/uL Eos # (Auto) (0.0-0.7) 10^3/uL Baso # (Auto) (0.0-0.1) 10^3/uL Absolute Nucleated RBC x10^3/uL Nucleated RBC % /100WBC Manual Slide Review WBC Morphology (NORMAL) Platelet Estimate (NORMAL) Platelet Morphology (NORMAL) RBC Morph Micro Appear (NORMAL) VBG pH (7.31-7.41) VBG pCO2 (41-51) mmHg VBG pO2 (25-47) mmHg VBG HCO3 (23-28) mmol/L VBG Total CO2 (24-29) mmol/L VBG O2 Saturation (60-80) % VBG Base Excess (-2 - +2) mmol/L Sodium (135-145) mmol/L Potassium (3.5-5.0) mmol/L Chloride (101-111) mmol/L Carbon Dioxide (21-32) mmol/L Anion Gap (6-13) BUN (6-20) mg/dL Creatinine (0.6-1.2) mg/dL Estimated GFR (MDRD) (>89) Glucose (70-100) mg/dL Lactic Acid (0.5-2.2) mmol/L Calcium (8.5-10.3) mg/dL Magnesium 1.7 (1.7-2.8) mg/dL Direct Bilirubin 0.2 (0.1-0.5) mg/dL Ammonia (7-35) umol/L Troponin I (<0.49) ng/mL C-Reactive Protein 18.7 H (0-1.0) mg/dL Lipase (22-51) U/L 08/02/18 08/02/18 08/02/18 Range/Units 11:24 11:24 11:24 WBC (4.8-10.8) x10^3/uL RBC (4.70-6.10) 10^6/uL Hgb (14.0-18.0) g/dL Hct (42.0-52.0) % MCV (80.0-94.0) fL MCH (27.0-31.0) pg MCHC (32.0-36.0) g/dL RDW (12.0-15.0) % Plt Count (130-450) 10^3/uL MPV (7.4-11.4) fL Neut # (Auto) (1.5-6.6) 10^3/uL Lymph # (Auto) (1.5-3.5) 10^3/uL [place] # (Auto) (0.0-1.0) 10^3/uL Eos # (Auto) (0.0-0.7) 10^3/uL Baso # (Auto) (0.0-0.1) 10^3/uL Absolute Nucleated RBC x10^3/uL Nucleated RBC % /100WBC Manual Slide Review WBC Morphology (NORMAL) Platelet Estimate (NORMAL) Platelet Morphology (NORMAL) RBC Morph Micro Appear (NORMAL) VBG pH 7.429 H (7.31-7.41) VBG pCO2 35.5 L (41-51) mmHg VBG pO2 41.2 (25-47) mmHg VBG HCO3 23.0 (23-28) mmol/L VBG Total CO2 24.1 (24-29) mmol/L VBG O2 Saturation 80.9 H (60-80) % VBG Base Excess -0.7 (-2 - +2) mmol/L Sodium (135-145) mmol/L Potassium (3.5-5.0) mmol/L Chloride (101-111) mmol/L Carbon Dioxide (21-32) mmol/L Anion Gap (6-13) BUN (6-20) mg/dL Creatinine (0.6-1.2) mg/dL Estimated GFR (MDRD) (>89) Glucose (70-100) mg/dL Lactic Acid 1.5 (0.5-2.2) mmol/L Calcium (8.5-10.3) mg/dL Magnesium (1.7-2.8) mg/dL Direct Bilirubin (0.1-0.5) mg/dL Ammonia (7-35) umol/L Troponin I (<0.49) ng/mL C-Reactive Protein (0-1.0) mg/dL Lipase 20 L (22-51) U/L 08/02/18 08/02/18 08/02/18 Range/Units 11:24 11:24 11:24 WBC 21.1 H (4.8-10.8) x10^3/uL RBC 4.88 (4.70-6.10) 10^6/uL Hgb 14.5 (14.0-18.0) g/dL Hct 43.1 (42.0-52.0) % MCV 88.3 (80.0-94.0) fL MCH 29.8 (27.0-31.0) pg MCHC 33.7 (32.0-36.0) g/dL RDW 15.4 H (12.0-15.0) % Plt Count 199 (130-450) 10^3/uL MPV 7.2 L (7.4-11.4) fL Neut # (Auto) 18.5 H (1.5-6.6) 10^3/uL Lymph # (Auto) 0.9 L (1.5-3.5) 10^3/uL [place] # (Auto) 1.5 H (0.0-1.0) 10^3/uL Eos # (Auto) 0.0 (0.0-0.7) 10^3/uL Baso # (Auto) 0.1 (0.0-0.1) 10^3/uL Absolute Nucleated RBC 0.01 x10^3/uL Nucleated RBC % 0.0 /100WBC Manual Slide Review Indicated WBC Morphology (NORMAL) Platelet Estimate NORMAL (130-450,000) (NORMAL) Platelet Morphology NORMAL APPEARANCE (NORMAL) RBC Morph Micro Appear NORMAL APPEARANCE (NORMAL) VBG pH (7.31-7.41) VBG pCO2 (41-51) mmHg VBG pO2 (25-47) mmHg VBG HCO3 (23-28) mmol/L VBG Total CO2 (24-29) mmol/L VBG O2 Saturation (60-80) % VBG Base Excess (-2 - +2) mmol/L Sodium (135-145) mmol/L Potassium (3.5-5.0) mmol/L Chloride (101-111) mmol/L Carbon Dioxide (21-32) mmol/L Anion Gap (6-13) BUN (6-20) mg/dL Creatinine (0.6-1.2) mg/dL Estimated GFR (MDRD) (>89) Glucose (70-100) mg/dL Lactic Acid (0.5-2.2) mmol/L Calcium (8.5-10.3) mg/dL Magnesium (1.7-2.8) mg/dL Direct Bilirubin (0.1-0.5) mg/dL Ammonia 17.1 (7-35) umol/L Troponin I 0.05 (<0.49) ng/mL C-Reactive Protein (0-1.0) mg/dL Lipase (22-51) U/L 08/02/18 08/02/18 Range/Units 05:13 05:13 WBC 20.6 H (4.8-10.8) x10^3/uL RBC 4.90 (4.70-6.10) 10^6/uL Hgb 14.7 (14.0-18.0) g/dL Hct 43.5 (42.0-52.0) % MCV 88.7 (80.0-94.0) fL MCH 30.0 (27.0-31.0) pg MCHC 33.9 (32.0-36.0) g/dL RDW 15.1 H (12.0-15.0) % Plt Count 202 (130-450) 10^3/uL MPV 7.5 (7.4-11.4) fL Neut # (Auto) (1.5-6.6) 10^3/uL Lymph # (Auto) (1.5-3.5) 10^3/uL [place] # (Auto) (0.0-1.0) 10^3/uL Eos # (Auto) (0.0-0.7) 10^3/uL Baso # (Auto) (0.0-0.1) 10^3/uL Absolute Nucleated RBC x10^3/uL Nucleated RBC % /100WBC Manual Slide Review WBC Morphology (NORMAL) Platelet Estimate (NORMAL) Platelet Morphology (NORMAL) RBC Morph Micro Appear (NORMAL) VBG pH (7.31-7.41) VBG pCO2 (41-51) mmHg VBG pO2 (25-47) mmHg VBG HCO3 (23-28) mmol/L VBG Total CO2 (24-29) mmol/L VBG O2 Saturation (60-80) % VBG Base Excess (-2 - +2) mmol/L Sodium 139 (135-145) mmol/L Potassium 3.5 (3.5-5.0) mmol/L Chloride 103 (101-111) mmol/L Carbon Dioxide 23 (21-32) mmol/L Anion Gap 13.0 (6-13) BUN 14 (6-20) mg/dL Creatinine 0.8 (0.6-1.2) mg/dL Estimated GFR (MDRD) 93 (>89) Glucose 133 H (70-100) mg/dL Lactic Acid (0.5-2.2) mmol/L Calcium 8.7 (8.5-10.3) mg/dL Magnesium (1.7-2.8) mg/dL Direct Bilirubin (0.1-0.5) mg/dL Ammonia (7-35) umol/L Troponin I (<0.49) ng/mL C-Reactive Protein (0-1.0) mg/dL Lipase (22-51) U/L ABX Reporting Has patient been on IV antibiotics over the past 48 hours?: Yes Sepsis Event Note (H) - Evaluation Current Stage of Sepsis: Sepsis Possible source of Sepsis: positive: Genitourinary - Sepsis Criteria Sepsis Criteria: Recorded Heart Rate greater than 90 bpm, Recorded Respiratory Rate greater than 20, Respiratory: Increasing oxygen requirements, WBC count greater than 12,000 or less than 4000, [employer]: altered consciousness (unrelated to primary neuro pathology), Hematologic: platelets < 100,000; INR > 1.5, or a PTT>60 seconds Assessment/Plan - Problem List (1) Complicated UTI (urinary tract infection) Impression: - Preliminary cx results are pending - Gross hematuria after de leon placement, despite using a uro-jet prior - mild and intermittent complaints of abdominal discomfort - WBC count 20, now 21.9 - Changed Rocephin to Zosyn with increasing WBC count and lack of improvement - NGTD of blood cultures Plan: Continue Zosyn (2) Metabolic encephalopathy Impression: - Head CT w/ contrast is pending - Neuro changes from baseline as increased difficulty swallowing, difference in tongue placement, and agitation - Most likely a consequence of this acute infection Plan: Continue to monitor, at the bedside, bed alarms, frequent nursing rounding (3) Alzheimer's dementia with behavioral disturbance Impression: - Long standing disease - Not on dementia meds - Poor level of functioning at baseline Plan: Continue fall precautions, treat acute illness, and await head CT Qualifiers: Alzheimer's disease onset: other onset Qualified Code(s): G30.8 - Other Alzheimer's disease; F02.81 - Dementia in other diseases classified elsewhere with behavioral disturbance (4) BPH (benign prostatic hyperplasia) Impression: - Multiple episodes of urine retention - Now with an indwelling de leon that was dark blood, caroline urine, now clearing up later today Plan: Continue Flomax and finasteride, de leon and monitor for improvement in acute illness (5) General weakness Impression: - recent falls at home, leading to minor injury - No recent head imaging- now pending - Expected weakness related to progressive dementia - Now with worsening weakness d/t acute illness Plan: PT evaluation, fall precautions
[2018-08-02] MEDS ORDERED: MORPHINE 2 MG/ML SYRINGE IVP ONE (13:32)
[2018-08-02] MEDS ORDERED: PIPERACILLIN/TAZOBACTAM 3.375 GM in SODIUM CHLORIDE 0.9% MINIBAG 100 ML IV ONE (14:00)
[2018-08-02] MEDS: LACTULOSE 10 GM /15 ML UDC PO SCH (14:12)
[2018-08-02] MEDS: ACETAMINOPHEN 325 MG TABLET PO PRN (14:49)
--- NOTE | 2018-08-02 14:52 | CT Report ---
Reason: AMS Procedure Date: 08/02/2018 Accession Number: [id number] / [id number] Procedure: CT - HEAD WO CPT Code: FULL RESULT: EXAM: CT HEAD EXAM DATE: 08/02/2018 02:34 PM. CLINICAL HISTORY: Altered mental status. COMPARISON: HEAD W/O 06/26/2018 4:05 PM. BRAIN W/WO 05/03/2015 8:11 AM. TECHNIQUE: Multiaxial CT images were obtained from the foramen magnum to the vertex. Reformats: Sagittal and coronal. IV contrast: None. In accordance with CT protocol optimization, one or more of the following dose reduction techniques were utilized for this exam: automated exposure control, adjustment of mA and/or KV based on patient size, or use of iterative reconstructive technique. FINDINGS: Parenchyma: No intraparenchymal hemorrhage. No evidence of mass, midline shift. Szymanski-white differentiation is distinct. Extraaxial Spaces: There is prominence of the ventricular system in keeping with age related cerebral remodeling. No subdural or epidural collections identified. Ventricles: Stable ventricular configuration compared to 06/26/2018 and similar to a 2016 MRI. Sinuses and Orbits: Appearance of the bilateral mastoid air cells is similar to before, mild effusion inferiorly. Imaged paranasal sinuses and orbits are within normal limits. Bones: No evidence of fracture or calvarial defect. Other: None. IMPRESSION: No acute intracranial abnormality is detected. [facility]
--- NOTE | 2018-08-02 16:34 | CONSULTATION NOTE ---
Palliative Care Follow Up - Referral Referring Provider: Dr Sheets, PCP. Originally ELVA Nataliia Garcia Time of Visit: Sun08.02.18. 14:30 - 15:05 Referral setting: Hospitalized patient Referral Reason: Advance Care Planning - Information Sources Records reviewed: Previous records reviewed History/Review of Systems obtained from: Family, Other (hospitalist) - History of Present Illness Update Brief HPI Update: 77-year-old male, frail and thin, with Alzheimer's and dependent on 24-hour oxygen. Hospitalized today for pneumonia, UTI, and metabolic encephalopathy. He was hospitalized a little over a month ago for pneumonia. He was discharged to [facility] for rehab, but family pulled him out after the first day and took him home. He has been on Home Health PT and RN since then. He was discharged from PT this week, and RN services are to discharge next week. Medical History: Alzheimer's dementia; COPD oxygen dependent 3L day, 5L nighttime; HTN; GERD; BPH; glaucoma; h/o tobacco use disorder; h/o UTIs; h/o pneumonia. Patient is in bed, alert and restless, with a nebulizer treatment in progress. It is not clear if he recognizes me, he is able to weakly greet me Long discussion with spouse on goals of care and advance care planning. See Palliative Care Discussion for details. Social History - Living Situation Living Situation: With spouse/s.o. Support System: Patient has been living in a private residence with his , Abida. They lived for 14 years in an independent unit on the property of their only child, daughter Abida, with her and two children, 14 and 12. , Abida, is the sole caregiver for the patient. At this time they have no outside caregiving support. Abida, Spouse: [phone] home Jayla, Daughter: [phone] mobile Medications/Allergies - Medications Active Medication List: Active Medications Acetaminophen (Tylenol) 650 mg PO Q6HR PRN PRN Reason: Pain or Fever > 38C (100.4F) Last Admin: 08/02/18 14:49 Dose: 650 mg Albuterol/Ipratropium (Duoneb) 3 ml INH Q4HR PRN PRN Reason: Wheezing Last Admin: 08/02/18 14:50 Dose: 3 ml Aspirin (Ecotrin) 81 mg PO DAILY [facility] Last Admin: 08/02/18 08:29 Dose: 81 mg Budesonide (Pulmicort) 0.5 mg INH RTBID [facility] Last Admin: 08/02/18 10:29 Dose: 0.5 mg Enoxaparin Sodium (Lovenox) 40 mg SUBQ DAILY [facility] Last Admin: 08/02/18 08:30 Dose: 40 mg Finasteride (Proscar) 5 mg PO DAILY [facility] Last Admin: 08/02/18 08:29 Dose: 5 mg Sodium Chloride (Normal Saline 0.9%) 1,000 mls @ 75 mls/hr IV .[id number] [facility] Last Admin: 08/02/18 11:16 Dose: 75 mls/hr Piperacillin Sod/Tazobactam (Sod 3.375 gm/ Sodium Chloride) 100 mls @ 25 mls/hr IV Q8H [facility] Lactulose (Enulose) 10 gm PO DAILY [facility] Last Admin: 08/02/18 14:12 Dose: 10 gm Latanoprost (Xalatan Ophth Drops) 1 drops EACHEYE QPM [facility] Last Admin: 08/01/18 22:39 Dose: Not Given Lidocaine HCl (Xylocaine Uro-Jet 2%) 2.5 ml UR Q6H PRN PRN Reason: PAIN Multivitamins (Theragran) 1 tab PO DAILY [facility] Last Admin: 08/02/18 08:29 Dose: 1 tab Pantoprazole Sodium (Protonix) 40 mg PO QDAC [facility] Last Admin: 08/02/18 06:22 Dose: 40 mg Polyethylene Glycol (Miralax) 17 gm PO DAILY [facility] Last Admin: 08/02/18 08:29 Dose: 17 gm Quetiapine Fumarate (Seroquel) 25 mg PO BID [facility] Last Admin: 08/02/18 08:29 Dose: 25 mg Sodium Chloride (Normal Saline Flush 0.9%) 10 ml IVP PRN PRN PRN Reason: NEEDED PER PROVIDER ORDERS Sodium Chloride (Normal Saline Flush 0.9%) 10 ml IVP 0100,0900,1700 [facility] Last Admin: 08/02/18 08:31 Dose: Not Given Tamsulosin HCl (Flomax) 0.4 mg PO DAILY [facility] Last Admin: 08/02/18 08:29 Dose: 0.4 mg Timolol Maleate (Timoptic 0.5% Ophth Drops) 1 drops EACHEYE BID [facility] Last Admin: 08/02/18 08:31 Dose: 1 drops Aspirin [Adult Low Dose Aspirin EC] 81 mg PO DAILY 12/01/16 Fexofenadine HCl 180 mg PO DAILY 12/01/16 Finasteride 5 mg PO DAILY 12/01/16 Fluticasone/Salmeterol [Advair 500-50 Diskus] 1 puffs INH BID 12/01/16 Omeprazole 20 mg PO QDAC 12/01/16 Tamsulosin HCl [Flomax] 0.4 mg PO DAILY 12/01/16 hydroCHLOROthiazide [Hydrodiuril] 12.5 mg PO DAILY 12/01/16 Cholecalciferol [Vitamin D3] 5,000 units PO DAILY 06/22/18 Latanoprost 0.005% Ophth Drops [Xalatan Ophth Drops] 1 drops EACHEYE QPM 06/22/18 Multivitamin [Theragran] 1 tab PO DAILY 06/22/18 Timolol 0.5% Ophth Drops [Timoptic 0.5% Ophth Drops] 1 drops EACHEYE BID 06/22/18 Tiotropium [place] [Spiriva] 1 puffs INH QPM 06/22/18 QUEtiapine [SEROquel] 25 mg PO BID 08/01/18 - Allergies Allergies/Adverse Reactions: Allergies Allergy/AdvReac Type Severity Reaction Status Date / Time No Known Drug Allergies Allergy Verified 08/01/18 10:16 Review of Systems - Constitutional Constitutional: reports: Fatigue, Weakness, Weight stable (134 lbs currently and during last month's hospitalization. He weighed 164 lbs [id number], 30 lbs loss over 4 years.) - Ears, Nose & Throat Ears, Nose & Throat: reports: Hearing loss - Cardiovascular Cardiovascular: reports: Decr. exercise tolerance - Respiratory Respiratory: reports: SOB at rest, SOB with exertion - Musculoskeletal Musculoskeletal: reports: Muscle weakness - Neurological Neurological: reports: Memory problems - Other Findings Other Findings: Limited ROS Physical Exam - Vital Signs Vital Signs: Vital Signs x48h Temp Pulse Pulse Resp BP Pulse Ox 08/02/18 14:50 88 26 H 08/02/18 12:48 98.2 F 97 22 118/82 H 95 08/02/18 10:28 98 26 H - Physical Exam General Appearance: positive: Alert, Anxious Eyes Bilateral: positive: No lid inflammation, Conjunctivae nml, No scleral icterus ENT: positive: Dry mucous membranes Respiratory: positive: Other (on oxygen) Skin: positive: Pallor, Dryness Extremities: positive: No pedal edema, Other (muscle wasting) Neurologic/Psychiatric: positive: Disoriented to place, Disoriented to time, Other (anxious, restless) Palliative Care - POLST Patient has POLST: Yes POLST Status: DNR, Comfort Measures - Palliative Care Discussion: Long discussion with Abida, , who has been present at bedside with the patient all day today, and yesterday too. This visit was conducted in the patient's hospital room. She did go home to sleep last night, said it helped a lot. Abida feels he is declining and suffering. "Why are we doing all this? Why can't we just let him go? He is never going to get better." She wants him to be treated here and now, while he's in the hospital, but if he qualified medically for Hospice, she would support transitioning him, and having him on comfort care. Of concern to him is that he is not discharged too soon, before he is strong toy ugh. She is no longer able to take care of him if his care needs increase. She doesn't have outside help presently, but realizes she will need to bring someone in, at least a few days a week. Provided information on possible discharge scenarios, depending on how the patient responds to treatment. Last month, when he was discharged from [facility] to [facility], the family removed him from [facility] after only one day. She didn't like it there, felt he was too confused and lost. They brought him home and Home Health PT and RN came. She states he was doing well until the sudden acute change two nights ago. We did discuss the goals of care, and she really just wants him to be kept comfortable. She wonders why we're doing "all of this." POLST was filled out and signed by spouse and GENERAL FOREMAN from Palliative Care: DNR, comfort care, comfort abx, no TF. At this time she would be supportive of transitioning the patient to Hospice if he met medical criteria. She did want confirmation that if she changed her mind, she could. I did confirm that. Results - Lab Results Lab results reviewed: Yes Fish Bones: 08/02/18 11:24 08/02/18 05:13 Lab and Imaging Results: Lab Results x24hrs 08/02/18 08/02/18 08/02/18 Range/Units 11:24 11:24 11:24 WBC (4.8-10.8) x10^3/uL RBC (4.70-6.10) 10^6/uL Hgb (14.0-18.0) g/dL Hct (42.0-52.0) % MCV (80.0-94.0) fL MCH (27.0-31.0) pg MCHC (32.0-36.0) g/dL RDW (12.0-15.0) % Plt Count (130-450) 10^3/uL MPV (7.4-11.4) fL Neut # (Auto) (1.5-6.6) 10^3/uL Lymph # (Auto) (1.5-3.5) 10^3/uL [place] # (Auto) (0.0-1.0) 10^3/uL Eos # (Auto) (0.0-0.7) 10^3/uL Baso # (Auto) (0.0-0.1) 10^3/uL Absolute Nucleated RBC x10^3/uL Nucleated RBC % /100WBC Manual Slide Review WBC Morphology (NORMAL) Platelet Estimate (NORMAL) Platelet Morphology (NORMAL) RBC Morph Micro Appear (NORMAL) VBG pH (7.31-7.41) VBG pCO2 (41-51) mmHg VBG pO2 (25-47) mmHg VBG HCO3 (23-28) mmol/L VBG Total CO2 (24-29) mmol/L VBG O2 Saturation (60-80) % VBG Base Excess (-2 - +2) mmol/L Sodium (135-145) mmol/L Potassium (3.5-5.0) mmol/L Chloride (101-111) mmol/L Carbon Dioxide (21-32) mmol/L Anion Gap (6-13) BUN (6-20) mg/dL Creatinine (0.6-1.2) mg/dL Estimated GFR (MDRD) (>89) Glucose (70-100) mg/dL Lactic Acid (0.5-2.2) mmol/L Calcium (8.5-10.3) mg/dL Magnesium 1.7 (1.7-2.8) mg/dL Direct Bilirubin 0.2 (0.1-0.5) mg/dL Ammonia (7-35) umol/L Troponin I (<0.49) ng/mL C-Reactive Protein 18.7 H (0-1.0) mg/dL Lipase (22-51) U/L 08/02/18 08/02/18 08/02/18 Range/Units 11:24 11:24 11:24 WBC (4.8-10.8) x10^3/uL RBC (4.70-6.10) 10^6/uL Hgb (14.0-18.0) g/dL Hct (42.0-52.0) % MCV (80.0-94.0) fL MCH (27.0-31.0) pg MCHC (32.0-36.0) g/dL RDW (12.0-15.0) % Plt Count (130-450) 10^3/uL MPV (7.4-11.4) fL Neut # (Auto) (1.5-6.6) 10^3/uL Lymph # (Auto) (1.5-3.5) 10^3/uL [place] # (Auto) (0.0-1.0) 10^3/uL Eos # (Auto) (0.0-0.7) 10^3/uL Baso # (Auto) (0.0-0.1) 10^3/uL Absolute Nucleated RBC x10^3/uL Nucleated RBC % /100WBC Manual Slide Review WBC Morphology (NORMAL) Platelet Estimate (NORMAL) Platelet Morphology (NORMAL) RBC Morph Micro Appear (NORMAL) VBG pH 7.429 H (7.31-7.41) VBG pCO2 35.5 L (41-51) mmHg VBG pO2 41.2 (25-47) mmHg VBG HCO3 23.0 (23-28) mmol/L VBG Total CO2 24.1 (24-29) mmol/L VBG O2 Saturation 80.9 H (60-80) % VBG Base Excess -0.7 (-2 - +2) mmol/L Sodium (135-145) mmol/L Potassium (3.5-5.0) mmol/L Chloride (101-111) mmol/L Carbon Dioxide (21-32) mmol/L Anion Gap (6-13) BUN (6-20) mg/dL Creatinine (0.6-1.2) mg/dL Estimated GFR (MDRD) (>89) Glucose (70-100) mg/dL Lactic Acid 1.5 (0.5-2.2) mmol/L Calcium (8.5-10.3) mg/dL Magnesium (1.7-2.8) mg/dL Direct Bilirubin (0.1-0.5) mg/dL Ammonia (7-35) umol/L Troponin I (<0.49) ng/mL C-Reactive Protein (0-1.0) mg/dL Lipase 20 L (22-51) U/L 08/02/18 08/02/18 08/02/18 Range/Units 11:24 11:24 11:24 WBC 21.1 H (4.8-10.8) x10^3/uL RBC 4.88 (4.70-6.10) 10^6/uL Hgb 14.5 (14.0-18.0) g/dL Hct 43.1 (42.0-52.0) % MCV 88.3 (80.0-94.0) fL MCH 29.8 (27.0-31.0) pg MCHC 33.7 (32.0-36.0) g/dL RDW 15.4 H (12.0-15.0) % Plt Count 199 (130-450) 10^3/uL MPV 7.2 L (7.4-11.4) fL Neut # (Auto) 18.5 H (1.5-6.6) 10^3/uL Lymph # (Auto) 0.9 L (1.5-3.5) 10^3/uL [place] # (Auto) 1.5 H (0.0-1.0) 10^3/uL Eos # (Auto) 0.0 (0.0-0.7) 10^3/uL Baso # (Auto) 0.1 (0.0-0.1) 10^3/uL Absolute Nucleated RBC 0.01 x10^3/uL Nucleated RBC % 0.0 /100WBC Manual Slide Review Indicated WBC Morphology (NORMAL) Platelet Estimate NORMAL (130-450,000) (NORMAL) Platelet Morphology NORMAL APPEARANCE (NORMAL) RBC Morph Micro Appear NORMAL APPEARANCE (NORMAL) VBG pH (7.31-7.41) VBG pCO2 (41-51) mmHg VBG pO2 (25-47) mmHg VBG HCO3 (23-28) mmol/L VBG Total CO2 (24-29) mmol/L VBG O2 Saturation (60-80) % VBG Base Excess (-2 - +2) mmol/L Sodium (135-145) mmol/L Potassium (3.5-5.0) mmol/L Chloride (101-111) mmol/L Carbon Dioxide (21-32) mmol/L Anion Gap (6-13) BUN (6-20) mg/dL Creatinine (0.6-1.2) mg/dL Estimated GFR (MDRD) (>89) Glucose (70-100) mg/dL Lactic Acid (0.5-2.2) mmol/L Calcium (8.5-10.3) mg/dL Magnesium (1.7-2.8) mg/dL Direct Bilirubin (0.1-0.5) mg/dL Ammonia 17.1 (7-35) umol/L Troponin I 0.05 (<0.49) ng/mL C-Reactive Protein (0-1.0) mg/dL Lipase (22-51) U/L 08/02/18 08/02/18 Range/Units 05:13 05:13 WBC 20.6 H (4.8-10.8) x10^3/uL RBC 4.90 (4.70-6.10) 10^6/uL Hgb 14.7 (14.0-18.0) g/dL Hct 43.5 (42.0-52.0) % MCV 88.7 (80.0-94.0) fL MCH 30.0 (27.0-31.0) pg MCHC 33.9 (32.0-36.0) g/dL RDW 15.1 H (12.0-15.0) % Plt Count 202 (130-450) 10^3/uL MPV 7.5 (7.4-11.4) fL Neut # (Auto) (1.5-6.6) 10^3/uL Lymph # (Auto) (1.5-3.5) 10^3/uL [place] # (Auto) (0.0-1.0) 10^3/uL Eos # (Auto) (0.0-0.7) 10^3/uL Baso # (Auto) (0.0-0.1) 10^3/uL Absolute Nucleated RBC x10^3/uL Nucleated RBC % /100WBC Manual Slide Review WBC Morphology (NORMAL) Platelet Estimate (NORMAL) Platelet Morphology (NORMAL) RBC Morph Micro Appear (NORMAL) VBG pH (7.31-7.41) VBG pCO2 (41-51) mmHg VBG pO2 (25-47) mmHg VBG HCO3 (23-28) mmol/L VBG Total CO2 (24-29) mmol/L VBG O2 Saturation (60-80) % VBG Base Excess (-2 - +2) mmol/L Sodium 139 (135-145) mmol/L Potassium 3.5 (3.5-5.0) mmol/L Chloride 103 (101-111) mmol/L Carbon Dioxide 23 (21-32) mmol/L Anion Gap 13.0 (6-13) BUN 14 (6-20) mg/dL Creatinine 0.8 (0.6-1.2) mg/dL Estimated GFR (MDRD) 93 (>89) Glucose 133 H (70-100) mg/dL Lactic Acid (0.5-2.2) mmol/L Calcium 8.7 (8.5-10.3) mg/dL Magnesium (1.7-2.8) mg/dL Direct Bilirubin (0.1-0.5) mg/dL Ammonia (7-35) umol/L Troponin I (<0.49) ng/mL C-Reactive Protein (0-1.0) mg/dL Lipase (22-51) U/L Impression and Recommendations - Palliative Care Impression: 77-year-old male with Alzheimer's dementia and COPD, thin, frail, and dependent on 24-hour oxygen. Hospitalized today for pneumonia, UTI, and metabolic encephalopathy. He had a similar hospitalization about a month ago for pneumoni a. At that time was DC'd to [facility] for rehab, but family pulled him out after the first day and took him home. He has been on Home Health PT and RN. PT was discharged this week, and RN services are to discharge next week. Spouse wants him treated and stable enough to return home, realizes she will need outside caregiver help if he returns home. Recommendations/Counseling Done: Advance care planning: Long discussion with spouse about goals of care. She wants to continue treatment and not "murphy him out the door." Her great concern is that he be strong and stable enough to discharge, whether home or elsewhere. She would not have him transferred to [facility] again. We signed a POLST for comfort care (not now, but after discharge). If treatment fails and he doesn't improve/stabilize, she would consider transitioning him to Hospice. The goal is to avoid suffering,and not prolong life at the expense of comfort and quality of life. Palliative Care will follow up on Sunday. Time Spent: 35 minutes were spent with more than 50% of the time spent on education, counseling, providing anticipatory guidance, and coordination of care with family and hospitalist.
[2018-08-02] MEDS: PIPERACILLIN/TAZOBACTAM 3.375 GM in SODIUM CHLORIDE 0.9% MINIBAG 100 ML IV SCH (17:29)
[2018-08-02] MEDS: LATANOPROST 0.005% OPHTH DROPS EACHEYE SCH (21:51)
[2018-08-03] MEDS: SODIUM CHLORIDE 0.9% 1,000 ML IV SCH ×2 (00:18→13:26)
[2018-08-03] MEDS: PIPERACILLIN/TAZOBACTAM 3.375 GM in SODIUM CHLORIDE 0.9% MINIBAG 100 ML IV SCH ×3 (00:58→17:13)
[2018-08-03] MEDS: SODIUM CHLORIDE FLUSH 0.9% 10 ML SYRINGE IVP SCH ×2 (01:03→08:11)
[2018-08-03] MEDS: PANTOPRAZOLE 40 MG TABLET PO SCH (06:05)
[2018-08-03 06:47] LABS: HGB - HEMOGLOBIN 13.3 g/dL (14.0-18.0); MEAN PLATELET VOLUME 7.5 fL (7.4-11.4); PLT - PLATELET COUNT 194 10^3/uL (130-450)
[2018-08-03 07:00] LABS: ALBUMIN 2.9 g/dL (3.2-5.5); ALBUMIN/GLOBULIN RATIO 0.9 (1.0-2.2); BILIRUBIN,TOTAL 1.2 mg/dL (0.2-1.0); CALCIUM 8.7 mg/dL (8.5-10.3); CREATININE 0.8 mg/dL (0.6-1.2); PHOSPHORUS 3.2 mg/dL (2.5-4.6); TOTAL PROTEIN 6.2 g/dL (6.7-8.2)
[2018-08-03 07:01] LABS: BASOPHILS % (AUTO) 0.4 %; EOSINOPHILS % (AUTO) 0.8 %; LYMPHOCYTES % (AUTO) 8.8 %; MEAN CORPUSCULAR HGB CONC 33.8 g/dL (32.0-36.0); MEAN CORPUSCULAR VOLUME 88.9 fL (80.0-94.0); MONOCYTES % (AUTO) 8.1 %; NEUTROPHILS % (AUTO) 81.9 %; RED BLOOD COUNT 4.45 10^6/uL (4.70-6.10); RED CELL DISTRIBUTION WIDTH 15.1 % (12.0-15.0); WHITE BLOOD COUNT 13.2 x10^3/uL (4.8-10.8)
[2018-08-03 07:04] LABS: ABNORMAL LYMPHS % (MANUAL) 0 %
[2018-08-03 07:20] LABS: BAND NEUTROPHILS % (MANUAL) 2 %; DIFFERENTIAL COMMENT MANUAL DIFFERENTIAL; LYMPHOCYTES # (MANUAL) 2.1 10^3/uL (1.5-3.5); LYMPHOCYTES % (MANUAL) 16 %; MONOCYTES # (MANUAL) 0.8 10^3/uL (0.0-1.0); MYELOCYTES % (MANUAL) 1 %; NEUTROPHILS # (MANUAL) 10.2 10^3/uL (1.5-6.6); NEUTROPHILS % (MANUAL) 75 %; PLATELET ESTIMATE, MANUAL NORMAL (130-450,000) (NORMAL); RBC MORPHOLOGY (MULTIPLE) NORMAL APPEARANCE (NORMAL)
[2018-08-03] MEDS: BUDESONIDE 0.5 MG/2 ML NEB INH SCH ×2 (07:30→19:54)
[2018-08-03] MEDS: IPRATROPIUM/ALBUTEROL 3 ML NEB INH PRN ×2 (07:30→19:54)
[2018-08-03] MEDS: QUEtiapine 25 MG TABLET PO SCH ×2 (08:09→21:40)
[2018-08-03] MEDS: ENOXAPARIN 40 MG/0.4 ML SYRINGE SUBQ SCH (08:09)
[2018-08-03] MEDS: MULTIVITAMIN TABLET PO SCH (08:09)
[2018-08-03] MEDS: TAMSULOSIN 0.4 MG CAPSULE PO SCH (08:09)
[2018-08-03] MEDS: LACTULOSE 10 GM /15 ML UDC PO SCH (08:09)
[2018-08-03] MEDS: TIMOLOL 0.5% OPHTH DROPS EACHEYE SCH ×2 (08:09→21:41)
[2018-08-03] MEDS: ASPIRIN EC 81 MG TABLET PO SCH (08:09)
[2018-08-03] MEDS: FINASTERIDE 5 MG TABLET PO SCH (08:09)
[2018-08-03] MEDS: POLYETHYLENE GLYCOL 3350 17 GM PACKET PO SCH (08:10)
[2018-08-03] MEDS: ACETAMINOPHEN 325 MG TABLET PO PRN ×2 (12:24→21:40)
--- NOTE | 2018-08-03 18:47 | PROVIDER PROGRESS NOTE ---
Subjective - Prog Note Date Prog Note Date: 08/03/18 Prog Note Time: 18:45 - Subjective Pt reports feeling: Improved Subjective: Anjum appears comfortable and is in bed being fed dinner by his . Cristela, the patient's does not believe that her was in pain today, but worries about his tearfulness that is new today. Current Medications - Current Medications Current Medications: Active Medications: Acetaminophen (Tylenol) 650 mg PO Q6HR PRN Albuterol/Ipratropium (Duoneb) 3 ml INH Q4HR PRN Aspirin (Ecotrin) 81 mg PO DAILY [facility] Budesonide (Pulmicort) 0.5 mg INH RTBID [facility] Enoxaparin Sodium (Lovenox) 40 mg SUBQ DAILY [facility] Finasteride (Proscar) 5 mg PO DAILY [facility] Sodium Chloride (Normal Saline 0.9%) 1,000 mls @ 75 mls/hr IV .[id number] [facility] Piperacillin Sod/Tazobactam (Sod 3.375 gm/ Sodium Chloride) 100 mls @ 25 mls/hr IV Q8H [facility] Lactulose (Enulose) 10 gm PO DAILY [facility] Latanoprost (Xalatan Ophth Drops) 1 drops EACHEYE QPM [facility] Lidocaine HCl (Xylocaine Uro-Jet 2%) 2.5 ml UR Q6H PRN Multivitamins (Theragran) 1 tab PO DAILY [facility] Pantoprazole Sodium (Protonix) 40 mg PO QDAC [facility] Polyethylene Glycol (Miralax) 17 gm PO DAILY [facility] Quetiapine Fumarate (Seroquel) 25 mg PO BID [facility] Tamsulosin HCl (Flomax) 0.4 mg PO DAILY [facility] Timolol Maleate (Timoptic 0.5% Ophth Drops) 1 drops EACHEYE BID [facility] HOME meds: Aspirin [Adult Low Dose Aspirin EC] 81 mg PO DAILY 12/01/16 Fexofenadine HCl 180 mg PO DAILY 12/01/16 Finasteride 5 mg PO DAILY 12/01/16 Fluticasone/Salmeterol [Advair 500-50 Diskus] 1 puffs INH BID 12/01/16 Omeprazole 20 mg PO QDAC 12/01/16 Tamsulosin HCl [Flomax] 0.4 mg PO DAILY 12/01/16 hydroCHLOROthiazide [Hydrodiuril] 12.5 mg PO DAILY 12/01/16 Cholecalciferol [Vitamin D3] 5,000 units PO DAILY 06/22/18 Latanoprost 0.005% Ophth Drops [Xalatan Ophth Drops] 1 drops EACHEYE QPM 06/22/18 Multivitamin [Theragran] 1 tab PO DAILY 06/22/18 Timolol 0.5% Ophth Drops [Timoptic 0.5% Ophth Drops] 1 drops EACHEYE BID 06/22/18 Tiotropium [place] [Spiriva] 1 puffs INH QPM 06/22/18 QUEtiapine [SEROquel] 25 mg PO BID 08/01/18 Objective - Vital Signs/Intake & Output Reviewed Vital Signs: Yes Vital Signs: Vital Signs x48h Temp Pulse Resp BP Pulse Ox 08/03/18 16:25 36.5 C 71 142/76 H 95 08/03/18 13:00 36.4 C L 72 16 119/77 97 Intake & Output: Intake & Output 07/31/18 08/01/18 08/02/18 08/03/18 23:59 23:59 23:59 23:59 Intake Total 1240 1510 2245.0 Output Total 1400 2650 600 Balance -160 -1140 1645.0 - Objective General Appearance: positive: No acute distress, Alert Eyes Bilateral: positive: PERRL Eyes: OU Conjunctivae pale ENT: positive: Pharynx nml, No signs of dehydration Neck: positive: Thyroid nml, No JVD, Trachea midline Respiratory: positive: Chest non-tender, No respiratory distress, Breath sounds nml, Rhonchi Cardiovascular: positive: Regular rate & rhythm, No gallop, Systolic murmur Peripheral Pulses: 1+ Radial (R), 1+ Radial (L) Abdomen: positive: Non-tender, Nml bowel sounds Back: positive: Nml inspection Skin: positive: No rash, Warm, Dry Extremities: positive: Non-tender, Full ROM, No pedal edema Neurologic/Psychiatric: positive: Disoriented to place, Disoriented to time, Weakness, Sensory loss, Slurred/abnml speech, Depressed mood/affect, Other (baseline advanced dementia) Reflexes: Bicep (R): 2+, Bicep (L): 2+ - Lab Results Fish Bones: 08/03/18 06:39 08/03/18 06:39 Other Labs: Lab Results x24hrs 08/03/18 08/03/18 08/03/18 Range/Units 06:39 06:39 06:39 WBC 13.2 H (4.8-10.8) x10^3/uL RBC 4.45 L (4.70-6.10) 10^6/uL Hgb 13.3 L (14.0-18.0) g/dL Hct 39.5 L (42.0-52.0) % MCV 88.9 (80.0-94.0) fL MCH 30.0 (27.0-31.0) pg MCHC 33.8 (32.0-36.0) g/dL RDW 15.1 H (12.0-15.0) % Plt Count 194 (130-450) 10^3/uL MPV 7.5 (7.4-11.4) fL Neut # (Auto) Not Reportable Lymph # (Auto) Not Reportable [place] # (Auto) Not Reportable Eos # (Auto) Not Reportable Baso # (Auto) Not Reportable Absolute Nucleated RBC Not Reportable Total Counted 100 Band Neuts % (Manual) 2 (0 - 10) % Abnorm Lymph % (Manual) 0 % Myelocytes % 1 H ( - 0) % Nucleated RBC % Not Reportable Neutrophils # (Manual) 10.2 H (1.5-6.6) 10^3/uL Lymphocytes # (Manual) 2.1 (1.5-3.5) 10^3/uL Monocytes # (Manual) 0.8 (0.0-1.0) 10^3/uL Eosinophils # (Manual) 0.0 (0-0.7) 10^3/uL Basophils # (Manual) 0.0 (0-0.1) 10^3/uL Differential Comment MANUAL DIFFERENTIAL Platelet Estimate NORMAL (130-450,000) (NORMAL) RBC Morph Micro Appear NORMAL APPEARANCE (NORMAL) Sodium 144 (135-145) mmol/L Potassium 3.8 (3.5-5.0) mmol/L Chloride 105 (101-111) mmol/L Carbon Dioxide 27 (21-32) mmol/L Anion Gap 12.0 (6-13) BUN 25 H (6-20) mg/dL Creatinine 0.8 (0.6-1.2) mg/dL Estimated GFR (MDRD) 93 (>89) Glucose 105 H (70-100) mg/dL Lactic Acid 1.2 (0.5-2.2) mmol/L Calcium 8.7 (8.5-10.3) mg/dL Phosphorus 3.2 (2.5-4.6) mg/dL Magnesium 2.0 (1.7-2.8) mg/dL Total Bilirubin 1.2 H (0.2-1.0) mg/dL AST 29 (10-42) IU/L ALT 18 (10-60) IU/L Alkaline Phosphatase 63 (42-121) IU/L Total Protein 6.2 L (6.7-8.2) g/dL Albumin 2.9 L (3.2-5.5) g/dL Globulin 3.3 (2.1-4.2) g/dL Albumin/Globulin Ratio 0.9 L (1.0-2.2) ABX Reporting Has patient been on IV antibiotics over the past 48 hours?: Yes Sepsis Event Note (H) - Evaluation Current Stage of Sepsis: Ruled out Assessment/Plan - Problem List (1) Complicated UTI (urinary tract infection) Impression: - Cultures are NGTD, both urine and BC - Gross hematuria after de leon placement is resolved today - mild and intermittent complaints of abdominal discomfort - WBC count 21.9, now 13.2 - Changed Rocephin to Zosyn with increasing WBC count and lack of improvement Plan: Continue Zosyn (2) Metabolic encephalopathy Impression: - Head CT w/ contrast is pending - Neuro changes from baseline as increased difficulty swallowing, difference in tongue placement, and agitation - Most likely a consequence of this acute infection Plan: Continue to monitor, at the bedside, bed alarms, frequent nursing rounding (3) Alzheimer's dementia with behavioral disturbance Impression: - Long standing disease - Not on dementia meds - Poor level of functioning at baseline Plan: Continue fall precautions, treat acute illness, and await head CT Qualifiers: Alzheimer's disease onset: other onset Qualified Code(s): G30.8 - Other Alzheimer's disease; F02.81 - Dementia in other diseases classified elsewhere with behavioral disturbance (4) BPH (benign prostatic hyperplasia) Impression: - Multiple episodes of urine retention - Initial indwelling de leon that was dark blood, caroline urine, now clear Plan: Continue Flomax and finasteride, de leon and monitor for improvement in acute illness Qualifiers: Lower urinary tract symptom presence: symptoms present (5) General weakness Impression: - recent falls at home, leading to minor injury - No recent head imaging- now pending - Expected weakness related to progressive dementia - Now with worsening weakness d/t acute illness Plan: PT evaluation, fall precautions
[2018-08-03] MEDS: LATANOPROST 0.005% OPHTH DROPS EACHEYE SCH (21:41)
[2018-08-04] MEDS: PIPERACILLIN/TAZOBACTAM 3.375 GM in SODIUM CHLORIDE 0.9% MINIBAG 100 ML IV SCH ×3 (00:54→17:16)
[2018-08-04] MEDS: SODIUM CHLORIDE FLUSH 0.9% 10 ML SYRINGE IVP SCH ×4 (01:01→20:48)
[2018-08-04] MEDS: SODIUM CHLORIDE 0.9% 1,000 ML IV SCH ×2 (02:19→15:03)
[2018-08-04] MEDS: PANTOPRAZOLE 40 MG TABLET PO SCH (06:41)
[2018-08-04] MEDS: BUDESONIDE 0.5 MG/2 ML NEB INH SCH ×2 (07:30→19:44)
[2018-08-04] MEDS: IPRATROPIUM/ALBUTEROL 3 ML NEB INH PRN ×2 (07:30→19:44)
[2018-08-04] MEDS: ENOXAPARIN 40 MG/0.4 ML SYRINGE SUBQ SCH (08:07)
[2018-08-04] MEDS: POLYETHYLENE GLYCOL 3350 17 GM PACKET PO SCH (08:07)
[2018-08-04] MEDS: ACETAMINOPHEN 325 MG TABLET PO PRN (08:08)
[2018-08-04] MEDS: TAMSULOSIN 0.4 MG CAPSULE PO SCH (08:08)
[2018-08-04] MEDS: MULTIVITAMIN TABLET PO SCH (08:08)
[2018-08-04] MEDS: FINASTERIDE 5 MG TABLET PO SCH (08:08)
[2018-08-04] MEDS: QUEtiapine 25 MG TABLET PO SCH ×2 (08:08→18:26)
[2018-08-04] MEDS: ASPIRIN EC 81 MG TABLET PO SCH (08:09)
[2018-08-04] MEDS: TIMOLOL 0.5% OPHTH DROPS EACHEYE SCH ×2 (08:12→20:47)
[2018-08-04] MEDS: guaiFENesin/CODEINE 5 ML UDC PO PRN ×2 (10:44→18:27)
[2018-08-04] MEDS: LACTULOSE 10 GM /15 ML UDC PO SCH (13:41)
--- NOTE | 2018-08-04 17:25 | PROVIDER PROGRESS NOTE ---
Subjective - Prog Note Date Prog Note Date: 08/04/18 Prog Note Time: 17:33 - Subjective Pt reports feeling: No change Subjective: Anjum appears calm and is having no problems with breathing. His is at the bedside and has been presented with what to do from the hospital as to Hospice or a higher level of care due to her 's increased physical needs. Current Medications - Current Medications Current Medications: Active Medications: Acetaminophen (Tylenol) 650 mg PO Q6HR PRN Albuterol/Ipratropium (Duoneb) 3 ml INH Q4HR PRN Aspirin (Ecotrin) 81 mg PO DAILY [facility] Budesonide (Pulmicort) 0.5 mg INH RTBID [facility] Docusate Sodium (Colace 250mg Capsule) 250 - 500 mg PO DAILY [facility] Enoxaparin Sodium (Lovenox) 40 mg SUBQ DAILY [facility] Finasteride (Proscar) 5 mg PO DAILY [facility] Guaifenesin/Codeine Phosphate (Robitussin Ac) 5 ml PO Q6HR PRN Piperacillin Sod/Tazobactam (Sod 3.375 gm/ Sodium Chloride) 100 mls @ 25 mls/hr IV Q8H [facility] Lactulose (Enulose) 10 gm PO DAILY [facility] Latanoprost (Xalatan Ophth Drops) 1 drops EACHEYE QPM [facility] Lidocaine HCl (Xylocaine Uro-Jet 2%) 2.5 ml UR Q6H PRN Multivitamins (Theragran) 1 tab PO DAILY [facility] Pantoprazole Sodium (Protonix) 40 mg PO QDAC [facility] Polyethylene Glycol (Miralax) 17 gm PO DAILY [facility] Quetiapine Fumarate (Seroquel) 25 mg PO BID [facility] Senna (Senokot) 8.6 - 17.2 mg PO DAILY [facility] Tamsulosin HCl (Flomax) 0.4 mg PO DAILY [facility] Timolol Maleate (Timoptic 0.5% Ophth Drops) 1 drops EACHEYE BID [facility] HOME meds: Aspirin [Adult Low Dose Aspirin EC] 81 mg PO DAILY 12/01/16 Fexofenadine HCl 180 mg PO DAILY 12/01/16 Finasteride 5 mg PO DAILY 12/01/16 Fluticasone/Salmeterol [Advair 500-50 Diskus] 1 puffs INH BID 12/01/16 Omeprazole 20 mg PO QDAC 09/08/17 Tamsulosin HCl [Flomax] 0.4 mg PO DAILY 12/01/16 hydroCHLOROthiazide [Hydrodiuril] 12.5 mg PO DAILY 12/01/16 Cholecalciferol [Vitamin D3] 5,000 units PO DAILY 06/22/18 Latanoprost 0.005% Ophth Drops [Xalatan Ophth Drops] 1 drops E[facility]HE[facility] QPM 06/22/18 Multivitamin [Theragran] 1 tab PO DAILY 06/22/18 Timolol 0.5% Ophth Drops [Timoptic 0.5% Ophth Drops] 1 drops EACHEYE BID 06/22/18 Tiotropium [place] [Spiriva] 1 puffs INH QPM 06/22/18 QUEtiapine [SEROquel] 25 mg PO BID 08/01/18 Objective - Vital Signs/Intake & Output Reviewed Vital Signs: Yes Vital Signs: Vital Signs x48h Temp Pulse Pulse Resp BP Pulse Ox 08/04/18 16:00 36.4 C L 65 18 147/86 H 97 08/04/18 14:07 36.4 C L 67 18 99 Intake & Output: Intake & Output 08/01/18 08/02/18 08/03/18 08/04/18 23:59 23:59 23:59 23:59 Intake Total 1240 1510 2345.0 2595 Output Total 1400 2650 900 800 Balance -160 -1140 1445.0 1795 - Objective General Appearance: positive: Mild distress, Anxious, Lethargic Eyes Bilateral: positive: Normal inspection Eyes: OU Lid inflammation ENT: positive: Pharynx nml, Dry mucous membranes Neck: positive: Thyroid nml, No JVD, Trachea midline Respiratory: positive: Chest non-tender, No respiratory distress, Wheezes, Rhonchi Cardiovascular: positive: No gallop, Irregularly irregular, Systolic murmur, Decreased pulse(s) Peripheral Pulses: 1+ Radial (R), 1+ Radial (L) Abdomen: positive: Non-tender, Nml bowel sounds Back: positive: Nml inspection Skin: positive: No rash, Warm, Dry, Other (bronze toned) Extremities: positive: Non-tender, No pedal edema, Other (chronic contractures d/t dementia) Neurologic/Psychiatric: positive: Disoriented to place, Disoriented to time, Weakness, Sensory loss, Slurred/abnml speech, Depressed mood/affect, Other (advanced dementia, no meaningful conversations, no evidence of comprehension) Reflexes: Bicep (R): 2+, Bicep (L): 2+ - Lab Results Fish Bones: 08/03/18 06:39 08/03/18 06:39 ABX Reporting Has patient been on IV antibiotics over the past 48 hours?: Yes Sepsis Event Note (H) - Evaluation Current Stage of Sepsis: Ruled out Assessment/Plan - Problem List (1) Left lower lobe pneumonia Impression: - Based on urine cultures being NGTD - WBC count is trending down - Continues to have a coarse cough, especially after consuming food or drinks, and during - Requires oxygen- unchanged from baseline - Aspiration likely due to advanced dementia Plan: Continue to offer Hospice, swallow study on Sunday, continue IV zosyn Qualifiers: Pneumonia type: aspiration pneumonia (2) Complicated UTI (urinary tract infection) Impression: - Cultures are NGTD, both urine and BC - Gross hematuria after de leon placement- resolved - mild and intermittent complaints of abdominal discomfort- now resolved - WBC count 21.9, yesterday 13.2 - Changed Rocephin to Zosyn with increasing WBC count and lack of improvement Plan: Continue Zosyn (3) Metabolic encephalopathy Impression: - Head CT w/ contrast showed no acute abnormalities - Neuro changes from baseline as increased difficulty swallowing, difference in tongue placement, and agitation - Most likely a consequence of this acute infection - PT reports today that the patient performed worse than yesterday in regards to endurance and willingness Plan: Continue to monitor, at the bedside, bed alarms, frequent nursing rounding (4) Alzheimer's dementia with behavioral disturbance Impression: - Long standing disease - Not on dementia meds - Poor level of functioning at baseline - Ambulation becoming worse each day - Also a suspicion of possible aspiration with eating, coarse coughing during mealtimes and afterwards Plan: Continue fall precautions, treat acute illness, and await head CT Qualifiers: Alzheimer's disease onset: other onset Qualified Code(s): G30.8 - Other Alzheimer's disease; F02.81 - Dementia in other diseases classified elsewhere with behavioral disturbance (5) BPH (benign prostatic hyperplasia) Impression: - Multiple episodes of urine retention - Initial indwelling de leon that was dark blood, caroline urine, now clear to cloudy Plan: Continue Flomax and finasteride, de leon and monitor for improvement in acute illness Qualifiers: Lower urinary tract symptom presence: symptoms present (6) General weakness Impression: - recent falls at home, leading to minor injury - No recent head imaging- now pending - Expected weakness related to progressive dementia - Now with worsening weakness d/t acute illness - PT notes even worse mobility today as compared to yesterday Plan: PT evaluation, fall precautions
[2018-08-04] MEDS: LATANOPROST 0.005% OPHTH DROPS EACHEYE SCH (20:47)
[2018-08-05] MEDS: PIPERACILLIN/TAZOBACTAM 3.375 GM in SODIUM CHLORIDE 0.9% MINIBAG 100 ML IV SCH ×2 (00:52→08:59)
[2018-08-05] MEDS: guaiFENesin/CODEINE 5 ML UDC PO PRN ×2 (00:58→18:28)
[2018-08-05] MEDS: SODIUM CHLORIDE 0.9% 1,000 ML IV SCH (03:55)
[2018-08-05] MEDS: SODIUM CHLORIDE FLUSH 0.9% 10 ML SYRINGE IVP SCH ×3 (05:06→16:38)
[2018-08-05] MEDS: PANTOPRAZOLE 40 MG TABLET PO SCH (06:34)
[2018-08-05 07:52] LABS: BASOPHILS # (AUTO) 0.1 10^3/uL (0.0-0.1); BASOPHILS % (AUTO) 1.1 %; EOSINOPHILS # (AUTO) 0.4 10^3/uL (0.0-0.7); EOSINOPHILS % (AUTO) 4.2 %; HGB - HEMOGLOBIN 12.8 g/dL (14.0-18.0); LYMPHOCYTES # (AUTO) 1.1 10^3/uL (1.5-3.5); LYMPHOCYTES % (AUTO) 12.1 %; MEAN CORPUSCULAR HEMOGLOBIN 30.3 pg (27.0-31.0); MEAN CORPUSCULAR HGB CONC 34.3 g/dL (32.0-36.0); MEAN CORPUSCULAR VOLUME 88.4 fL (80.0-94.0); MEAN PLATELET VOLUME 6.9 fL (7.4-11.4); MONOCYTES # (AUTO) 0.6 10^3/uL (0.0-1.0); MONOCYTES % (AUTO) 6.9 %; NEUTROPHILS % (AUTO) 75.7 %; PLT - PLATELET COUNT 224 10^3/uL (130-450); RED BLOOD COUNT 4.22 10^6/uL (4.70-6.10); RED CELL DISTRIBUTION WIDTH 15.2 % (12.0-15.0); WHITE BLOOD COUNT 9.2 x10^3/uL (4.8-10.8)
[2018-08-05 07:56] LABS: ALBUMIN 2.7 g/dL (3.2-5.5); ALBUMIN/GLOBULIN RATIO 0.9 (1.0-2.2); BILIRUBIN,TOTAL 0.9 mg/dL (0.2-1.0); CREATININE 0.7 mg/dL (0.6-1.2); MAGNESIUM 1.8 mg/dL (1.7-2.8); TOTAL PROTEIN 5.6 g/dL (6.7-8.2)
[2018-08-05] MEDS: hydroCHLOROthiazide 12.5 MG CAPSULE PO SCH (09:00)
[2018-08-05] MEDS: ENOXAPARIN 40 MG/0.4 ML SYRINGE SUBQ SCH (09:00)
[2018-08-05] MEDS: FEXOFENADINE 60 MG TABLET PO SCH (09:00)
[2018-08-05] MEDS: SENNA 8.6 MG TABLET PO SCH (09:00)
[2018-08-05] MEDS: TAMSULOSIN 0.4 MG CAPSULE PO SCH (09:00)
[2018-08-05] MEDS: FINASTERIDE 5 MG TABLET PO SCH (09:01)
[2018-08-05] MEDS: QUEtiapine 25 MG TABLET PO SCH ×4 (09:01→22:29)
[2018-08-05] MEDS: CHOLECALCIFEROL 5,000 UNIT CAPSULE PO SCH (09:01)
[2018-08-05] MEDS: ASPIRIN EC 81 MG TABLET PO SCH (09:01)
[2018-08-05] MEDS: POLYETHYLENE GLYCOL 3350 17 GM PACKET PO SCH (09:01)
[2018-08-05] MEDS: MULTIVITAMIN TABLET PO SCH (09:01)
[2018-08-05] MEDS: DOCUSATE SODIUM 250 MG CAPSULE PO SCH (09:02)
[2018-08-05] MEDS: TIMOLOL 0.5% OPHTH DROPS EACHEYE SCH ×2 (09:08→22:01)
[2018-08-05] MEDS: ACETAMINOPHEN 325 MG TABLET PO PRN (09:15)
[2018-08-05] MEDS: LACTULOSE 10 GM /15 ML UDC PO SCH (09:15)
[2018-08-05] MEDS: BUDESONIDE 0.5 MG/2 ML NEB INH SCH ×2 (09:25→19:26)
[2018-08-05] MEDS: IPRATROPIUM/ALBUTEROL 3 ML NEB INH PRN (09:25)
[2018-08-05 09:43] LABS: PLATELET ESTIMATE, MANUAL NORMAL (130-450,000) (NORMAL); PLATELET MORPHOLOGY NORMAL APPEARANCE (NORMAL); RBC MORPHOLOGY (MULTIPLE) OVALOCYTES (NORMAL)
[2018-08-05] MEDS: FUROSEMIDE 40 MG/4 ML VIAL IVP SCH (10:48)
[2018-08-05] MEDS: cefUROXime axetil 250 MG TABLET PO SCH ×3 (10:48→22:29)
--- NOTE | 2018-08-05 15:36 | CONSULTATION NOTE ---
Palliative Care Follow Up - Referral Referring Provider: Dr Sheets, PCP. Originally [facility] Natali[facility] Garcia Time of Visit: Sunday08/05/2018. 9:20 - 9:35. 13:55 - 14:25 Referral Reason: Advance Care Planning - Information Sources Records reviewed: RN notes reviewed, Previous records reviewed History/Review of Systems obtained from: Patient, Family, Other (Social Work, Physics Instructor, Transit Manager) Exam limitations: Clinical condition (Dementia, delirium) - History of Present Illness Update Brief HPI Update: 77-year-old male, frail and thin, with Alzheimer's and dependent on 24-hour oxygen. Hospitalized since 08/01/18 for pneumonia, UTI, and metabolic encephalopathy. He was hospitalized a little over a month ago for pneumonia. Medical History: Alzheimer's dementia; COPD oxygen dependent 3L day, 5L nig httime; HTN; GERD; BPH; glaucoma; h/o tobacco use disorder; h/o UTIs; h/o pneumonia. and daughter are present at the morning visit; only is present at afternoon visit. Patient has a DuoNeb nebulilzer treatment in progress. His is confused and restless, daugther is reassuring him throughout the course of the treatment Family has decided for admission to Hospice. Discharge plans are still pending. His family had previously pulled him out of [facility] last month after the first day; they weren't comfortable with him there, felt he was confused and lost. They took him home. [facility] is not accepting new patients. At this time it appears family wants to take him home and hire outside caregiving as needed. Palliative Care Discussion has more details. Social History - Living Situation Living arrangement: At home Living Situation: With spouse/s.o., With family Support System: Patient has been living in a private residence with his , Abida. They have lived for 14 years in an independent unit on the property of their only child, daughter Abida, with her and two children, 14 and 12. , Abida, is the sole caregiver for the patient. At this time they have no outside caregiving support. Palliative Care provided list of home care agencies that operate on [facility] Abida, Spouse: [phone] home Jayla, Daughter: [phone] mobile Medications/Allergies - Medications Active Medication List: Active Medications Acetaminophen (Tylenol) 650 mg PO Q6HR PRN PRN Reason: Pain or Fever > 38C (100.4F) Last Admin: 08/05/18 09:15 Dose: 650 mg Albuterol/Ipratropium (Duoneb) 3 ml INH Q4HR PRN PRN Reason: Wheezing Last Admin: 08/05/18 09:25 Dose: 3 ml Aspirin (Ecotrin) 81 mg PO DAILY [facility] Last Admin: 08/05/18 09:01 Dose: 81 mg Budesonide (Pulmicort) 0.5 mg INH RTBID [facility] Last Admin: 08/05/18 09:25 Dose: 0.5 mg Cefuroxime Axetil (Ceftin) 250 mg PO BID [facility] Last Admin: 08/05/18 10:48 Dose: 250 mg Cholecalciferol (Vitamin D3) 5,000 unit PO DAILY [facility] Last Admin: 08/05/18 09:01 Dose: 5,000 unit Docusate Sodium (Colace 250mg Capsule) 250 - 500 mg PO DAILY [facility] Last Admin: 08/05/18 09:02 Dose: 250 mg Enoxaparin Sodium (Lovenox) 40 mg SUBQ DAILY [facility] Last Admin: 08/05/18 09:00 Dose: 40 mg Fexofenadine HCl (Aylin) 180 mg PO DAILY [facility] Last Admin: 08/05/18 09:00 Dose: 180 mg Finasteride (Proscar) 5 mg PO DAILY [facility] Last Admin: 08/05/18 09:01 Dose: 5 mg Furosemide (Lasix Inj 40 Mg Vial) 40 mg IVP DAILY [facility] Last Admin: 08/05/18 10:48 Dose: 40 mg Guaifenesin/Codeine Phosphate (Robitussin Ac) 5 ml PO Q6HR PRN PRN Reason: Cough Last Admin: 08/05/18 00:58 Dose: 5 ml Hydrochlorothiazide (Hydrodiuril) 12.5 mg PO DAILY [facility] Last Admin: 08/05/18 09:00 Dose: 12.5 mg Lactulose (Enulose) 10 gm PO DAILY [facility] Last Admin: 08/05/18 09:15 Dose: 10 gm Latanoprost (Xalatan Ophth Drops) 1 drops EACHEYE QPM [facility] Last Admin: 08/04/18 20:47 Dose: 1 drops Lidocaine HCl (Xylocaine Uro-Jet 2%) 2.5 ml UR Q6H PRN PRN Reason: PAIN Multivitamins (Theragran) 1 tab PO DAILY [facility] Last Admin: 08/05/18 09:01 Dose: 1 tab Pantoprazole Sodium (Protonix) 40 mg PO QDAC [facility] Last Admin: 08/05/18 06:34 Dose: 40 mg Polyethylene Glycol (Miralax) 17 gm PO DAILY [facility] Last Admin: 08/05/18 09:01 Dose: 17 gm Quetiapine Fumarate (Seroquel) 25 mg PO BID [facility] Last Admin: 08/05/18 09:01 Dose: 25 mg Senna (Senokot) 8.6 - 17.2 mg PO DAILY [facility] Last Admin: 08/05/18 09:00 Dose: 8.6 mg Sodium Chloride (Normal Saline Flush 0.9%) 10 ml IVP PRN PRN PRN Reason: NEEDED PER PROVIDER ORDERS Sodium Chloride (Normal Saline Flush 0.9%) 10 ml IVP 0100,0900,1700 [facility] Last Admin: 08/05/18 09:07 Dose: 10 ml Tamsulosin HCl (Flomax) 0.4 mg PO DAILY [facility] Last Admin: 08/05/18 09:00 Dose: 0.4 mg Timolol Maleate (Timoptic 0.5% Ophth Drops) 1 drops EACHEYE BID [facility] Last Admin: 08/05/18 09:08 Dose: 1 drops Aspirin [Adult Low Dose Aspirin EC] 81 mg PO DAILY 12/01/16 Fexofenadine HCl 180 mg PO DAILY 12/01/16 Finasteride 5 mg PO DAILY 12/01/16 Fluticasone/Salmeterol [Advair 500-50 Diskus] 1 puffs INH BID 12/01/16 Omeprazole 20 mg PO QDAC 12/01/16 Tamsulosin HCl [Flomax] 0.4 mg PO DAILY 12/01/16 hydroCHLOROthiazide [Hydrodiuril] 12.5 mg PO DAILY 12/01/16 Cholecalciferol [Vitamin D3] 5,000 units PO DAILY 06/22/18 Latanoprost 0.005% Ophth Drops [Xalatan Ophth Drops] 1 drops EACHEYE QPM Multivitamin [Theragran] 1 tab PO DAILY 06/22/18 Timolol 0.5% Ophth Drops [Timoptic 0.5% Ophth Drops] 1 drops EACHEYE BID 06/22/18 Tiotropium [place] [Spiriva] 1 puffs INH QPM 06/22/18 QUEtiapine [SEROquel] 25 mg PO BID 08/01/18 - Allergies Allergies/Adverse Reactions: Allergies Allergy/AdvReac Type Severity Reaction Status Date / Time No Known Drug Allergies Allergy Verified 08/01/18 10:16 Review of Systems - Constitutional Constitutional: reports: Fatigue, Weakness, Other (134 lbs at admission; same weight at previous admission last month) - Ears, Nose & Throat Ears, Nose & Throat: reports: Hearing aids - Respiratory Respiratory: reports: SOB at rest (3L O2 NC), SOB with exertion - Genitourinary Genitourinary: reports: Incontinence - Musculoskeletal Musculoskeletal: reports: Muscle weakness - Integumentary Integumentary: reports: Pigment changes (bruising) - Neurological Neurological: reports: Memory problems - Psychiatric Psychiatric: reports: Aggitation - Other Findings Other Findings: Limited ROS Physical Exam - Vital Signs Vital Signs: Vital Signs x48h Temp Pulse Pulse Resp BP Pulse Ox 08/05/18 09:29 66 16 08/05/18 08:11 98.6 F 61 24 156/84 H 99 - Physical Exam General Appearance: positive: Alert, Anxious, Other (Alert in a.m., sleeping in afternoon; anxious when awake) Eyes Bilateral: positive: Normal inspection ENT: positive: Dry mucous membranes Neck: positive: Trachea midline, Other (O2 3L NC) Respiratory: positive: No respiratory distress, Diminished throughout. negative: Wheezes, Rales, Rhonchi Skin: positive: Pallor, Dryness Neurologic/Psychiatric: positive: Disoriented to place, Disoriented to time, Oth er (restless, confused when awake) Palliative Care - POLST Patient has POLST: Yes POLST Status: DNR, Comfort Measures Performance Status: unsteady, requires assist with ambulation full assist with eating confused, restless - Palliative Care Discussion: is concerned she cannot provide level of care he requires at home, [place]. Long discussion with Palliative Care regarding family needing to provide or hire fpc care if he is discharged home on Hospice. Spouse is concerned about the cost. Long discussion regarding paid caregiving; provided information and list of agencies that operate on [facility], and directed her toward [facility] for engaging private caregivers. She's hesitant because she doesn't know how much or what level of care will be needed. But [place], also SW indicates unavailability at the usual, nearby facilities. She doesn't have insight to what will be involved in caregiving at home, particularly if he is no longer able transfer/ambulate to toilet. Suggested she could reach out to a few of them to start the process, get an idea of what is available. The patient and his spouse live on daughter's property, so daughter could be available at certain times to help with some caregiving. She has her on family obligations and schedules, with two school-age children. Spouse is feeling overwhelmed, "They say the Lord doesn't give you want you can't handle, but how much does the Lord think I can take?" Palliative care provided normalization of feelings, active listening and support. Patient was raised Congregational, does not attend holiness currently. She becomes emotional speaking of how sweet her was all their life, and now she doesn't recognize him. Provided a safe environment for her to release emotions and verbalize feelings. Coordinated with airport duty manager; DME is scheduled for home delivery tomorrow 08/06/18; admission to Hospice on Sun08/07/18. Results - Lab Results Fish Bones: 08/05/18 07:21 08/05/18 07:21 Lab and Imaging Results: Lab Results x24hrs 08/05/18 08/05/18 08/05/18 Range/Units 07:21 07:21 07:21 WBC 9.2 (4.8-10.8) x10^3/uL RBC 4.22 L (4.70-6.10) 10^6/uL Hgb 12.8 L (14.0-18.0) g/dL Hct 37.3 L (42.0-52.0) % MCV 88.4 (80.0-94.0) fL MCH 30.3 (27.0-31.0) pg MCHC 34.3 (32.0-36.0) g/dL RDW 15.2 H (12.0-15.0) % Plt Count 224 (130-450) 10^3/uL MPV 6.9 L (7.4-11.4) fL Neut # (Auto) 7.0 H (1.5-6.6) 10^3/uL Lymph # (Auto) 1.1 L (1.5-3.5) 10^3/uL [place]ick # (Auto) 0.6 (0.0-1.0) 10^3/uL Eos # (Auto) 0.4 (0.0-0.7) 10^3/uL Baso # (Auto) 0.1 (0.0-0.1) 10^3/uL Absolute Nucleated RBC 0.00 x10^3/uL Nucleated RBC % 0.0 /100WBC WBC Morphology NORMAL APPEARANCE (NORMAL) Platelet Estimate NORMAL (130-450,000) (NORMAL) Platelet Morphology NORMAL APPEARANCE (NORMAL) RBC Morph Micro Appear OVALOCYTES (NORMAL) Sodium 139 (135-145) mmol/L Potassium 3.5 (3.5-5.0) mmol/L Chloride 103 (101-111) mmol/L Carbon Dioxide 28 (21-32) mmol/L Anion Gap 8.0 (6-13) BUN 12 (6-20) mg/dL Creatinine 0.7 (0.6-1.2) mg/dL Estimated GFR (MDRD) 109 (>89) Glucose 95 (70-100) mg/dL Calcium 8.0 L (8.5-10.3) mg/dL Magnesium 1.8 (1.7-2.8) mg/dL Total Bilirubin 0.9 (0.2-1.0) mg/dL AST 26 (10-42) IU/L ALT 21 (10-60) IU/L Alkaline Phosphatase 56 (42-121) IU/L B-Natriuretic Peptide 321 H (5-100) pg/mL Total Protein 5.6 L (6.7-8.2) g/dL Albumin 2.7 L (3.2-5.5) g/dL Globulin 2.9 (2.1-4.2) g/dL Albumin/Globulin Ratio 0.9 L (1.0-2.2) Impression and Recommendations - Palliative Care Impression: 77-year-old male with Alzheimer's dementia and COPD, thin, frail, and dependent on 24-hour oxygen. In hospital for pneumonia, UTI, and metabolic encephalopathy. He had a similar hospitalization about a month ago for pneumonia. He has a poor level of functioning at baseline, plan is to stabilize and transition to Hospice. Hospice admission scheduled for 08/07/18, current plan is to discharge him home. Spouse has been provided written information on caregiver agencies and private caregivers on [place], encouraged to start reaching out to them while he is still hospitalized. Recommendations/Counseling Done: Advance care planning: Provided emotional support and presence for spouse. Cont inued discussion with spouse about goals of care, transitioning to hospice, necessity of having adequate caregiver coveragefor a discharge to home, which is the present plan. Provided spouse information on Caregiver agencies [place] the [place], and to contact [facility] for private caregiver. Coordinated with Hospice and family: durable medical equipment to be delivered to the home tomorrow. Hospice admission planned for 08/07/18. Spouse would benefit from Hospice SW for psychosocial support, and [employer] support too, if she will accept it. Time Spent: 45 minutes were spent with more than 50% of the time spent on education, counseling, providing emotional support and anticipatory guidance, and coordination of care with family, SW, Hospice.
--- NOTE | 2018-08-05 17:59 | PROVIDER PROGRESS NOTE ---
Subjective - Prog Note Date Prog Note Date: 08/05/18 Prog Note Time: 10:00 - Subjective Pt reports feeling: Improved Subjective: Anjum appears agitated today, less sleepy. His and daughter are at the bedside. He is medically cleared for discharge, other than his new agitation. Current Medications - Current Medications Current Medications: Active Medications Acetaminophen (Tylenol) 650 mg PO Q6HR PRN PRN Reason: Pain or Fever > 38C (100.4F) Last Admin: 08/05/18 09:15 Dose: 650 mg Albuterol/Ipratropium (Duoneb) 3 ml INH Q4HR PRN PRN Reason: Wheezing Last Admin: 08/05/18 09:25 Dose: 3 ml Aspirin (Ecotrin) 81 mg PO DAILY [facility] Last Admin: 08/05/18 09:01 Dose: 81 mg Budesonide (Pulmicort) 0.5 mg INH RTBID [facility] Last Admin: 08/05/18 09:25 Dose: 0.5 mg Cefuroxime Axetil (Ceftin) 250 mg PO BID [facility] Last Admin: 08/05/18 10:48 Dose: 250 mg Cholecalciferol (Vitamin D3) 5,000 unit PO DAILY [facility] Last Admin: 08/05/18 09:01 Dose: 5,000 unit Docusate Sodium (Colace 250mg Capsule) 250 - 500 mg PO DAILY [facility] Last Admin: 08/05/18 09:02 Dose: 250 mg Enoxaparin Sodium (Lovenox) 40 mg SUBQ DAILY [facility] Last Admin: 08/05/18 09:00 Dose: 40 mg Fexofenadine HCl (Aylin) 180 mg PO DAILY [facility] Last Admin: 08/05/18 09:00 Dose: 180 mg Finasteride (Proscar) 5 mg PO DAILY [facility] Last Admin: 08/05/18 09:01 Dose: 5 mg Furosemide (Lasix Inj 40 Mg Vial) 40 mg IVP DAILY [facility] Last Admin: 08/05/18 10:48 Dose: 40 mg Guaifenesin/Codeine Phosphate (Robitussin Ac) 5 ml PO Q6HR PRN PRN Reason: Cough Last Admin: 08/05/18 00:58 Dose: 5 ml Hydrochlorothiazide (Hydrodiuril) 12.5 mg PO DAILY [facility] Last Admin: 08/05/18 09:00 Dose: 12.5 mg Lactulose (Enulose) 10 gm PO DAILY [facility] Last Admin: 08/05/18 09:15 Dose: 10 gm Latanoprost (Xalatan Ophth Drops) 1 drops EACHEYE QPM [facility] Last Admin: 08/04/18 20:47 Dose: 1 drops Lidocaine HCl (Xylocaine Uro-Jet 2%) 2.5 ml UR Q6H PRN PRN Reason: PAIN Multivitamins (Theragran) 1 tab PO DAILY [facility] Last Admin: 08/05/18 09:01 Dose: 1 tab Pantoprazole Sodium (Protonix) 40 mg PO QDAC [facility] Last Admin: 08/05/18 06:34 Dose: 40 mg Polyethylene Glycol (Miralax) 17 gm PO DAILY [facility] Last Admin: 08/05/18 09:01 Dose: 17 gm Quetiapine Fumarate (Seroquel) 25 mg PO TID [facility] Senna (Senokot) 8.6 - 17.2 mg PO DAILY [facility] Last Admin: 08/05/18 09:00 Dose: 8.6 mg Sodium Chloride (Normal Saline Flush 0.9%) 10 ml IVP PRN PRN PRN Reason: NEEDED PER PROVIDER ORDERS Sodium Chloride (Normal Saline Flush 0.9%) 10 ml IVP 0100,0900,1700 [facility] Last Admin: 08/05/18 16:38 Dose: 10 ml Tamsulosin HCl (Flomax) 0.4 mg PO DAILY [facility] Last Admin: 08/05/18 09:00 Dose: 0.4 mg Timolol Maleate (Timoptic 0.5% Ophth Drops) 1 drops EACHEYE BID [facility] Last Admin: 08/05/18 09:08 Dose: 1 drops Aspirin [Adult Low Dose Aspirin EC] 81 mg PO DAILY 12/01/16 Fexofenadine HCl 180 mg PO DAILY 12/01/16 Finasteride 5 mg PO DAILY 12/01/16 Fluticasone/Salmeterol [Advair 500-50 Diskus] 1 puffs INH BID 12/01/16 Omeprazole 20 mg PO QDAC 12/01/16 Tamsulosin HCl [Flomax] 0.4 mg PO DAILY 12/01/16 hydroCHLOROthiazide [Hydrodiuril] 12.5 mg PO DAILY 12/01/16 Cholecalciferol [Vitamin D3] 5,000 units PO DAILY 06/22/18 Latanoprost 0.005% Ophth Drops [Xalatan Ophth Drops] 1 drops EACHEYE QPM 06/22/18 Multivitamin [Theragran] 1 tab PO DAILY 06/22/18 Timolol 0.5% Ophth Drops [Timoptic 0.5% Ophth Drops] 1 drops EACHEYE BID 06/22/18 Tiotropium Nemo [Spiriva] 1 puffs INH QPM 06/22/18 QUEtiapine [SEROquel] 25 mg PO BID 08/01/18 Objective - Vital Signs/Intake & Output Reviewed Vital Signs: Yes Vital Signs: Vital Signs x48h Temp Pulse Resp BP Pulse Ox 08/05/18 15:38 36.7 C 75 18 122/97 H 96 Intake & Output: Intake & Output 08/02/18 08/03/18 08/04/18 08/05/18 23:59 23:59 23:59 23:59 Intake Total 1510 2345.0 3235 2151 Output Total 2650 900 1100 5250 Balance -1140 1445.0 2135 -3099 - Objective General Appearance: positive: Alert, Moderate distress, Anxious Eyes Bilateral: positive: PERRL Eyes: OU Conjunctivae pale ENT: positive: Pharynx nml, Dry mucous membranes Neck: positive: Thyroid nml, No JVD, Trachea midline Respiratory: positive: Chest non-tender, Wheezes, Rhonchi Cardiovascular: positive: Tachycardia, Systolic murmur, Gallop/S3, Decreased pu lse(s) Peripheral Pulses: 1+ Radial (R), 1+ Radial (L) Abdomen: positive: Non-tender, Nml bowel sounds Back: positive: Nml inspection, Other (profound kyphosis) Skin: positive: No rash, Warm, Dry, Embolic lesions, Other (bronze toned) Extremities: positive: Non-tender, Full ROM, Pedal edema (slight dependent edema) Neurologic/Psychiatric: positive: Disoriented to place, Disoriented to time, Weakness, Sensory loss, Slurred/abnml speech, Depressed mood/affect, Other (contracted joints, baseline profound Alzheimer's dementia. Poor level of cognition) Reflexes: Bicep (R): 2+, Bicep (L): 2+ - Lab Results Fish Bones: 08/05/18 07:21 08/05/18 07:21 Other Labs: Lab Results x24hrs 08/05/18 08/05/18 08/05/18 Range/Units 07:21 07:21 07:21 WBC 9.2 (4.8-10.8) x10^3/uL RBC 4.22 L (4.70-6.10) 10^6/uL Hgb 12.8 L (14.0-18.0) g/dL Hct 37.3 L (42.0-52.0) % MCV 88.4 (80.0-94.0) fL MCH 30.3 (27.0-31.0) pg MCHC 34.3 (32.0-36.0) g/dL RDW 15.2 H (12.0-15.0) % Plt Count 224 (130-450) 10^3/uL MPV 6.9 L (7.4-11.4) fL Neut # (Auto) 7.0 H (1.5-6.6) 10^3/uL Lymph # (Auto) 1.1 L (1.5-3.5) 10^3/uL [place] # (Auto) 0.6 (0.0-1.0) 10^3/uL Eos # (Auto) 0.4 (0.0-0.7) 10^3/uL Baso # (Auto) 0.1 (0.0-0.1) 10^3/uL Absolute Nucleated RBC 0.00 x10^3/uL Nucleated RBC % 0.0 /100WBC WBC Morphology NORMAL APPEARANCE (NORMAL) Platelet Estimate NORMAL (130-450,000) (NORMAL) Platelet Morphology NORMAL APPEARANCE (NORMAL) RBC Morph Micro Appear OVALOCYTES (NORMAL) Sodium 139 (135-145) mmol/L Potassium 3.5 (3.5-5.0) mmol/L Chloride 103 (101-111) mmol/L Carbon Dioxide 28 (21-32) mmol/L Anion Gap 8.0 (6-13) BUN 12 (6-20) mg/dL Creatinine 0.7 (0.6-1.2) mg/dL Estimated GFR (MDRD) 109 (>89) Glucose 95 (70-100) mg/dL Calcium 8.0 L (8.5-10.3) mg/dL Magnesium 1.8 (1.7-2.8) mg/dL Total Bilirubin 0.9 (0.2-1.0) mg/dL AST 26 (10-42) IU/L ALT 21 (10-60) IU/L Alkaline Phosphatase 56 (42-121) IU/L B-Natriuretic Peptide 321 H (5-100) pg/mL Total Protein 5.6 L (6.7-8.2) g/dL Albumin 2.7 L (3.2-5.5) g/dL Globulin 2.9 (2.1-4.2) g/dL Albumin/Globulin Ratio 0.9 L (1.0-2.2) ABX Reporting Has patient been on IV antibiotics over the past 48 hours?: Yes Assessment/Plan - Problem List (1) Agitation Impression: - Somewhat worse since treating acute infection - Takes Seroquel - Now increased to TID - Would recommend liquid morphine in preparation for Hospice care Plan: continue to monitor, remove de leon (2) Left lower lobe pneumonia Impression: -Based on exam findings, coarse cough - WBC count is normal today - Continues to have a coarse cough, especially after consuming food or drinks, and during - Requires oxygen- unchanged from baseline - Aspiration likely due to advanced dementia Plan: Continue to treat illness using Cefuroximine PO, await speech evaluation results Qualifiers: Pneumonia type: aspiration pneumonia (3) Complicated UTI (urinary tract infection) Impression: - Cultures are NGTD, both urine and BC - Gross hematuria after de leon placement- resolved - mild and intermittent complaints of abdominal discomfort- now resolved - WBC count normal - S/p Rocephin to Zosyn with increasing WBC count and lack of improvement- now stopped - Orders to remove de leon this evening Plan: Continue PO cefuroximine (4) Metabolic encephalopathy Impression: - Head CT w/ contrast showed no acute abnormalities - Neuro changes from baseline as increased difficulty swallowing, difference in tongue placement, and agitation - Most likely a consequence of this acute infection - PT reports today that the patient performed worse than yesterday in regards to endurance and willingness Plan: Continue to monitor, at the bedside, bed alarms, frequent nursing rounding (5) Alzheimer's dementia with behavioral disturbance Impression: - Long standing disease - Not on dementia meds - Poor level of functioning at baseline - Ambulation becoming worse each day - Also a suspicion of possible aspiration with eating, coarse coughing during mealtimes and afterwards- passed swallow evaluation today Plan: Continue fall precautions, treat acute illness Qualifiers: Alzheimer's disease onset: other onset Qualified Code(s): G30.8 - Other Alzheimer's disease; F02.81 - Dementia in other diseases classified elsewhere with behavioral disturbance (6) BPH (benign prostatic hyperplasia) Impression: - Multiple episodes of urine retention - Initial indwelling de leon that was dark blood, caroline urine, now clear to cloudy - Orders to remove de leon tonight Plan: Continue Flomax and finasteride, bladder scans for post void residuals Qualifiers: Lower urinary tract symptom presence: symptoms present (7) General weakness Impression: - recent falls at home, leading to minor injury - Head CT with no acute abnormalities - Expected weakness related to progressive dementia - Now with worsening weakness d/t acute illness - PT notes even worsening mobility Plan: PT evaluation, fall precautions
[2018-08-05] MEDS: LATANOPROST 0.005% OPHTH DROPS EACHEYE SCH (22:01)
[2018-08-06] MEDS: SODIUM CHLORIDE FLUSH 0.9% 10 ML SYRINGE IVP SCH ×2 (00:43→08:23)
[2018-08-06] MEDS: QUEtiapine 25 MG TABLET PO SCH ×2 (06:23→13:19)
[2018-08-06] MEDS: PANTOPRAZOLE 40 MG TABLET PO SCH (06:24)
[2018-08-06] MEDS: BUDESONIDE 0.5 MG/2 ML NEB INH SCH (07:30)
[2018-08-06] MEDS: IPRATROPIUM/ALBUTEROL 3 ML NEB INH PRN (07:30)
[2018-08-06 07:54] VITALS: BP 143/97
[2018-08-06] MEDS: hydroCHLOROthiazide 12.5 MG CAPSULE PO SCH (08:22)
[2018-08-06] MEDS: MULTIVITAMIN TABLET PO SCH (08:22)
[2018-08-06] MEDS: FEXOFENADINE 60 MG TABLET PO SCH (08:22)
[2018-08-06] MEDS: TAMSULOSIN 0.4 MG CAPSULE PO SCH (08:23)
[2018-08-06] MEDS: ASPIRIN EC 81 MG TABLET PO SCH (08:23)
[2018-08-06] MEDS: cefUROXime axetil 250 MG TABLET PO SCH (08:23)
[2018-08-06] MEDS: SENNA 8.6 MG TABLET PO SCH (08:23)
[2018-08-06] MEDS: DOCUSATE SODIUM 250 MG CAPSULE PO SCH (08:23)
[2018-08-06] MEDS: LACTULOSE 10 GM /15 ML UDC PO SCH (08:23)
[2018-08-06] MEDS: FINASTERIDE 5 MG TABLET PO SCH (08:23)
[2018-08-06] MEDS: FUROSEMIDE 40 MG/4 ML VIAL IVP SCH (08:23)
[2018-08-06] MEDS: CHOLECALCIFEROL 5,000 UNIT CAPSULE PO SCH (08:23)
[2018-08-06] MEDS: ENOXAPARIN 40 MG/0.4 ML SYRINGE SUBQ SCH (08:23)
[2018-08-06] MEDS: TIMOLOL 0.5% OPHTH DROPS EACHEYE SCH (08:24)
[2018-08-06] MEDS: POLYETHYLENE GLYCOL 3350 17 GM PACKET PO SCH (08:24)
--- NOTE | 2018-08-06 12:34 | Discharge Plan ---
Discharge Plan Disposition: 50 Hospice/Home DC/Xfer Condition: Stable Prescriptions: Ipratropium/Albuterol [Duoneb] 3 ml INH Q4HR PRN #90 neb PRN Reason: Wheezing Budesonide 0.25 mg IH BID #60 ampul.neb cefUROXime axetil [Ceftin] 250 mg PO BID #20 tablet QUEtiapine [SEROquel] 25 mg PO TID #90 tablet Saccharomyces Boulardii [Florastor] 250 mg PO BID #60 capsule Senna [Senokot] 8.6 mg PO DAILY #30 tablet Diet: Soft Activity Restrictions: Activity as Tolerated Additional Instructions or Follow Up instructions: You were admitted and treated for a UTI and pneumonia. Please finish the full course of antibiotics at home. Ok to start tomorrow. A speech pathologist was asked to evaluate for possible aspiration, which in her professional opinion, is not a concern. You can continue with a soft diet and thin liquids if you are sitting upright with supervision during meal times. A Hospice consult was made and Dr. Jay came to the hospital to evaluate. Since leaving in the indwelling de leon, I have stopped both of his prostate medications. It was determined that given the progression of dementia, a focus on making the most of each day outweighed extending life in years. A hospital bed delivery has been arranged, and nursing staff will officially admit later today in your home. Please refer to Dr. Jay and his team if problems arise. Follow-Up Care: Hospice No Smoking: If you smoke, Please STOP! Call for help. Follow-up with: Silas Sheets MD [Primary Care Provider] -
--- NOTE | 2018-08-06 13:01 | ADVANCE CARE PLANNING NOTE ---
Advance Care Planning - Date/Time Date: 08/04/18 Time: 12:00 - Purpose of encounter Text: Establish goals of care, determine quality of life wishes, family communication - Parties in attendance Parties in attendance: The patient- Anjum Casas, his - Cristela, daughter - Decisional capacity Decisional capacity of: The patient has no decisional capacity given his advanced Alzheimer's dementia. - Subjective/Patient's story Subjective/Patient's story: The patient's , Cristela and the patient's daughter both agree that he has declined dramatically over the past couple months, eating poorly, pocketing food and intermittent choking or coughing. Has gotten weaker and has had recent non- injury falls, which Cristela worries about since she cannot physically lift her up off the floor. She just wants to keep her home, but has been at a loss with how to do this given her financial state and lack of resources in the community. Cristela just wants her to be happy, well fed, content, and comfortable for the rest of his life. - Objective/Medical story Objective/Medical Story: Anjum aCsas is an elderly 77-year old male with a past medical history of anorexia, dementia with behavioral disturbance, memory loss, resting tremor, GERD, glaucoma, COPD, hypoxia, chronic oxygen use, BPH, urinary retention, essential hypertension, tobacco dependence, sinusitis, and hyperlipidemia. 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 He lives with who feels it is her obligation to care for him, and had been resistant a higher level of care/SNF or private care-givers. In fact, during his last hospital stay, he qualified for SNF, was sent to [facility], but his took him home after one day due to inadequate care. Their daughter lives right next door, so she has been available to help. He has been doing well at home for past month, following a 1 week hospital admission from 06/21-06/28 for pneumonia. felt he was at his baseline until just last night when he was more restless with urinary frequency. Normally he gets up to urinate 2-3 times per nite, but last night he got up at least 8 times. She states he did void each time, unclear if he had any complaints of dysuria. Has known BPH and takes Flomax, and Finasteride. He was increasingly weak this morning, had a temperature of 99.7, no rigors, some chills. He has a chronic cough from COPD that is unchanged and wears home oxygen with no increased oxygen requirement. On initial exam of the admitting provider, the patient complained of RUQ pain, with no exacerbation while eating, no belching & no evidence of bleeding or masses. A chest x-ray is suggestive of left lower lung airspace disease, but as noted no change in respiratory status. A urine sample was concentrated 1.020, trace LE, 11-25 WBC, rare bacteria. Labs show an elevated WBC count of 16.9, H/H of 14.8/44, 210 k no bands. While still in the ED the patient received a dose of ceftriaxone 1 gram. Despite his past medical history of mild urinary retention, he has not needed a de leon catheter. His reports that the patient has been getting home health PT/OT since leaving [facility] via palliative care with a weekly RN visit. He will be admitted to inpatient for further treatment of this recurrent pneumonia worrisome for aspiration type given the patient's progressive dementia. After a long discussion with the patient's and daughter, it was determined that returning home with Hospice would provide the care needed to allow for comfort and making the most of each day rather than focusing on generous PT/OT and a road to recovery. Hospice services were expedited, a hospital bed was delivered to the home, and the patient was taken via BLS to his home under the care of Hospice. The goals would still be fulfilled via Hospice staff who could continued PT/OT to maintain the highest functionality at home/preventing injuries. - Goals of Care Goals of care determinations: - A change of heart from the patient's family - in the event of sudden, unexpected - If illness becomes worse and is imminent while in the hospital - Plan Plan: - Await Hospice referral - Provide treatment for UTI/PNA - PT to evaluate for home safety - Continue oxygen - Adjust seroquel based on needs with keeping agitation controlled - Follow POLST form of DNR- comfort based cares - Code Status Code Status: Do Not Attempt Resuscitation - Time Spent on Advance Care Planning Time spent on advance care plannin
--- NOTE | 2018-08-06 14:56 | DISCHARGE SUMMARY ---
"Discharge Summary Admit Date: 08/01/18 Discharge Date: 08/06/18 Discharging Provider: ELVA Hunt Primary Care Provider: Silas Sheets/Dr. Jay Code Status: Do Not Attempt Resuscitation Condition at Discharge: Good Discharge Disposition: 50 Hospice/Home DC/Xfer - DIAGNOSES Admission Diagnoses: Urinary tract infection, site not specified (N39.0) Elevated white blood cell count, unspecified (D72.829) Unspecified dementia without behavioral disturbance (F03.90) Retention of urine, unspecified (R33.9) Benign prostatic hyperplasia without lower urinry tract symp (N40.0) Age-related physical debility (R54) Discharge Diagnoses with Status of Each Condition: Benign prostatic hyperplasia (N40.0) Chronic, indwelling de leon left in place after failing voiding trial, stopped flomax and finasteride Metabolic encephalopathy (G93.41) ongoing, but improved since admission Complicated UTI (urinary tract infection) (N39.0) ongoing, antibiotics to continue at home Alzheimer's dementia (G30.9) ongoing, progressive, Hospice care in place at home General weakness (R53.1) improved, but progressive given dementia Left lower lobe pneumonia (J18.1) new on this admission. Swallow study- ok for soft diet and thin liquids Agitation (R45.1) chronic, stable, seroquel increased for home use Urinary retention (R33.9) chronic, stable Indwelling De Leon catheter present (Z96.0) indwelling de leon in place - HPI History of Present Illness: Anjum Casas is an elderly 77-year old male with a past medical history of anorexia, dementia with behavioral disturbance, memory loss, resting tremor, GERD, glaucoma, COPD, hypoxia, chronic oxygen use, BPH, urinary retention, essential hypertension, tobacco dependence, sinusitis, and hyperlipidemia. 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 He lives with who feels it is her obligation to care for him, and had been resistant a higher level of care/SNF or private care-givers. In fact, during his last hospital stay, he qualified for SNF, was sent to [facility], but his took him home after one day due to inadequate care. Their daughter lives right next door, so she has been available to help. He has been doing well at home for past month, following a 1 week hospital admission from 06/21-06/28 for pneumonia. felt he was at his baseline until just last night when he was more restless with urinary frequency. Normally he gets up to urinate 2-3 times per nite, but last night he got up at least 8 times. She states he did void each time, unclear if he had any complaints of dysuria. Has known BPH and takes Flomax, and Finasteride. He was increasingly weak this morning, had a temperature of 99.7, no rigors, some chills. He has a chronic cough from COPD that is unchanged and wears home oxygen with no increased oxygen requirement. On initial exam of the admitting provider, the patient complained of RUQ pain, with no exacerbation while eating, no belching & no evidence of bleeding or masses. A chest x-ray is suggestive of left lower lung airspace disease, but as noted no change in respiratory status. A urine sample was concentrated 1.020, trace LE, 11-25 WBC, rare bacteria. Labs show an elevated WBC count of 16.9, H/H of 14.8/44, 210 k no bands. While still in the ED the patient received a dose of ceftriaxone 1 gram. Despite his past medical history of mild urinary retention, he has not needed a de leon catheter. His reports that the patient has been getting home health PT/OT since leaving [facility] via palliative care with a weekly RN visit. He will be admitted to inpatient for further treatment of this recurrent pneumonia worrisome for aspiration type given the patient's progressive dementia. - CONSULTS | PROCEDURES Consultations: Dr. Jay- Hospice - HOSPITAL COURSE Hospital Course: The patient was treated for pneumonia/UTI, and continued on oral antibiotics. He failed a voiding trial prior to discharge, so an indwelling de leon was replaced and is to remain in for transport to home with Hospice. After a long discussion with the patient's and daughter, it was determined that returning home with Hospice would provide the care needed to allow for comfort and making the most of each day rather than focusing on generous PT/OT and a road to recovery. Hospice services were expedited, a hospital bed was delivered to the home, and the patient was taken via BLS to his home under the care of Hospice. The goals would still be fulfilled via Hospice staff who could continued PT/OT to maintain the highest functionality at home/preventing injuries. - ALLERGIES Allergies/Adverse Reactions: Allergies Allergy/AdvReac Type Severity Reaction Status Date / Time No Known Drug Allergies Allergy Verified 08/01/18 10:16 - MEDICATIONS Home Medications: Ambulatory Orders Medication Instructions Recorded Confirmed Aspirin [Adult Low Dose Aspirin EC] 81 mg PO DAILY 12/01/16 08/01/18 Fexofenadine HCl 180 mg PO DAILY 12/01/16 08/01/18 Omeprazole 20 mg PO QDAC 12/01/16 08/01/18 hydroCHLOROthiazide [Hydrodiuril] 12.5 mg PO DAILY 12/01/16 08/01/18 Cholecalciferol [Vitamin D3] 5,000 units PO DAILY 06/22/18 08/01/18 Latanoprost 0.005% Ophth Drops 1 drops EACHEYE QPM 06/22/18 08/01/18 [Xalatan Ophth Drops] Timolol 0.5% Ophth Drops [Timoptic 1 drops EACHEYE BID 06/22/18 08/01/18 0.5% Ophth Drops] Budesonide 0.25 mg IH BID #60 ampul.neb 08/06/18 Ipratropium/Albuterol [Duoneb] 3 ml INH Q4HR PRN #90 neb 08/06/18 QUEtiapine [SEROquel] 25 mg PO TID #90 tablet 08/06/18 Saccharomyces Boulardii [Florastor] 250 mg PO BID #60 capsule 08/06/18 Senna [Senokot] 8.6 mg PO DAILY #30 tablet 08/06/18 cefUROXime axetil [Ceftin] 250 mg PO BID #20 tablet 08/06/18 - PHYSICAL EXAM AT DISCHARGE General Appearance: positive: Alert, Mild distress, Anxious Eyes Bilateral: positive: PERRL ENT: positive: Pharynx nml, No signs of dehydration Neck: positive: Thyroid nml, No JVD, Trachea midline Respiratory: positive: Chest non-tender, No respiratory distress, Rhonchi Cardiovascular: positive: Regular rate & rhythm, No gallop, Systolic murmur, Decreased pulse(s) Peripheral Pulses: positive: 1+ Abdomen: positive: Non-tender, Nml bowel sounds Back: positive: Nml inspection, Other (profound kyphosis, creating less lung airspace) Skin: positive: No rash, Warm, Dry, Other (bronze toned skin, scattered bruising) Extremities: positive: Non-tender, Full ROM, Joint swelling Neurologic/Psychiatric: positive: Disoriented to person, Disoriented to place, Disoriented to time, Weakness, Sensory loss, Depressed mood/affect, Other (profound advanced dementia) Reflexes: Bicep (R): 1+, Bicep (L): 1+ - LABS Result Diagrams: 08/05/18 07:21 08/05/18 07:21 - DIAGNOSTIC IMAGING Diagnostic Imaging Results: Final report reviewed Diagnostic Imaging Results Comments: EXAM: CHEST RADIOGRAPHY EXAM DATE: 08/01/2018 10:40 AM IMPRESSION: New left lower lung airspace disease. EXAM: CT HEAD EXAM DATE: 08/02/2018 02:34 PM IMPRESSION: No acute intracranial abnormality is detected. - SEPSIS Current Stage of Sepsis: Resolved Possible source of Sepsis: Genitourinary - FOLLOW UP Follow Up: As per Hospice provider - TIME SPENT Time Spent in Discharge (Minutes): 60"
== END 2018-08-06 15:20 | disposition hospice, home (50) | DRG 177 ==
LOC: ED 10:04 → MS2 16:05 → OBSVTOIN 08-02 14:44
PROVIDERS: ADMIT Nurse Practitioner; ATTEND Nurse Practitioner
DX: J69.0 Pneumonitis due to inhalation of food and vomit (principal); G93.41 Metabolic encephalopathy; E87.3 Alkalosis; N30.00 Acute cystitis without hematuria; F02.81 Dementia in other diseases classified elsewhere, unspecified severity, with behavioral disturbance; F05 Delirium due to known physiological condition; G30.9 Alzheimer's disease, unspecified; N40.1 Benign prostatic hyperplasia with lower urinary tract symptoms; D72.829 Elevated white blood cell count, unspecified; R33.8 Other retention of urine; R35.0 Frequency of micturition; R39.15 Urgency of urination; N39.498 Other specified urinary incontinence; I10 Essential (primary) hypertension; E86.0 Dehydration; J43.9 Emphysema, unspecified; R09.02 Hypoxemia; F17.200 Nicotine dependence, unspecified, uncomplicated; J32.9 Chronic sinusitis, unspecified; R54 Age-related physical debility; R45.1 Restlessness and agitation; R26.81 Unsteadiness on feet; G25.2 Other specified forms of tremor; E78.5 Hyperlipidemia, unspecified; H40.9 Unspecified glaucoma; K44.9 Diaphragmatic hernia without obstruction or gangrene; K21.9 Gastro-esophageal reflux disease without esophagitis; H54.7 Unspecified visual loss; H91.90 Unspecified hearing loss, unspecified ear; K59.00 Constipation, unspecified; Z66 Do not resuscitate; Z51.5 Encounter for palliative care; Z99.81 Dependence on supplemental oxygen; Z79.82 Long term (current) use of aspirin; Z79.51 Long term (current) use of inhaled steroids; Z87.01 Personal history of pneumonia (recurrent)
CPT/HCPCS: 36415; 51701; 70450; 71046; 80048; 80053; 81001; 82140; 82248; 82803; 83605; 83690; 83735; 83880; 84100; 84484; 85025; 85027; 85610; 85730; 86140; 87040; 87086; 92610; 94640; 96361; 96365; 96367; 96372; 97116; 97162; 97530; 99233; 99284; A9270; G0378; J1650; J7626; 81003

== ENCOUNTER 2018-08-06 15:31 | Outpatient (CLI) | payer MEDICARE, BC | END 2018-08-06 15:32 | disposition home or self-care (01) | LOC: EMS 15:31 | PROVIDERS: ATTEND Surgery | DX: Z74.01 Bed confinement status (principal); F03.90 Unspecified dementia, unspecified severity, without behavioral disturbance, psychotic disturbance, mood disturbance, and anxiety; Z51.5 Encounter for palliative care | CPT/HCPCS: A0425; A0428 ==